=== PATIENT | female | born 1990 | race Caucasian/White ===

== ENCOUNTER 2016-08-03 07:15 | Inpatient (IN) | payer MEDICAID ==
[~2016-08-03] VITALS: Ht 154.9 cm; Wt 51.7 kg
[~2016-08-03 07:15] MED LIST: AMBI10TA PO; CLON1 PO; DICL50 PO; GABA300 PO; HYDR50 PO; PROM25TA5 PO; RANI150 PO
[2016-08-03 07:21] VITALS: BP 118/59; PULSE 93; RESP 20; TEMP 98.6; O2SAT 97
--- NOTE | 2016-08-03 07:58 | PD ---
HPI Chief Complaint: Altered Mental Status Time Seen by Provider: 07:36 Travel History International Travel<30 days: No Contact w/Intl Traveler<30days: No Traveled to known affect area: No History of Present Illness HPI The patient was seen and examined in the presence of the nurse. This patient is brought in by paramedics when someone called them reporting that she was having control lesions. She has history of substance abuse. She is not able to provide any history or review of systems. She is very somnolent. Paramedics gave her dose of Narcan which didn't help much. There is no accurate report of these convulsions. Paramedics did not see any seizure activity. Severity is moderate. No alleviating factors. Duration one day PFSH Past Medical History ?: Unknown Social History Alcohol Use: No Tobacco Use: Yes Substance Use: Yes Allergies-Medications (Allergen,Severity, Reaction): Coded Allergies: No Known Allergies (Unverified , 12/09/14) Reported Meds & Prescriptions Reported Meds & Active Scripts Active Ambien (Zolpidem Tartrate) 10 Mg Tab 10 Mg PO HS PRN Zantac 150 Mg Tab (Ranitidine HCl) 150 Mg Tab 150 Mg PO Q12HR Phenergan (Promethazine HCl) 25 Mg Tab 25 Mg PO Q6H Vistaril 50 Mg Cap (Hydroxyzine Pamoate) 50 Mg Cap 100 Mg PO HS Neurontin (Gabapentin) 300 Mg Cap 300 Mg PO TID Clonazepam 1 Mg Tab 1 Mg PO Q8HR Voltaren (Diclofenac Sodium) 50 Mg Tabec 50 Mg PO TID Review of Systems ROS Limitations: Clinical Condition, Intoxication, Altered Mental Status, Poor Historian Eyes: No: Visual changes Endocrine: No: Polydipsia Physical Exam Narrative GENERAL: Thin lethargic well-developed patient in no apparent distress. SKIN: Warm and dry. Several track sosa on the left arm HEAD: Atraumatic. Normocephalic. EYES: Pupils very large but equal and round and reactive. No scleral icterus. No injection or drainage. ENT: No nasal bleeding or discharge. Mucous membranes pink and moist. No tongue injury. Normal gag. NECK: Trachea midline. No JVD. CARDIOVASCULAR: Regular rate and rhythm. No murmur appreciated. RESPIRATORY: No accessory muscle use. Clear to auscultation. Breath sounds equal bilaterally. GASTROINTESTINAL: Abdomen soft, non-tender, nondistended. Hepatic and splenic margins not palpable. MUSCULOSKELETAL: No obvious deformities. No clubbing. No cyanosis. No edema. NEUROLOGICAL: Very drowsy and somnolent. Follow commands. Does not participate in the exam. Impossible to accurately gauge motor strength or sensation. No obvious cranial nerve deficits. Motor grossly within normal limits. Nonverbal PSYCHIATRIC: Impossible to test mood and affect; insight and judgment poor Data Data Last Documented VS Vital Signs Date Time Temp Pulse Resp B/P Pulse Ox O2 Delivery O2 Flow Rate FiO2 08/03/16 07:21 98.6 93 20 118/59 97 Orders Basic Metabolic Panel (Bmp) (08/03/16 07:50) Complete Blood Count With Diff (08/03/16 07:50) Ct Brain W/O Iv Contrast(Rout) (08/03/16 07:50) Iv Access Insert/Monitor (08/03/16 07:50) Cath For Specimen (08/03/16 07:50) Sodium Chloride 0.9% Flush (Ns Flush) (08/03/16 08:00) Drug Screen, Random Urine (08/03/16 07:50) Alcohol (Ethanol) (08/03/16 07:50) Salicylates (Aspirin) (08/03/16 07:50) Tylenol (Acetaminophen) (08/03/16 07:50) Sodium Chlor 0.9% 1000 Ml Inj (Ns 1000 M (08/03/16 08:00) [employer] / Telemetry BARBIE.Q8H (08/03/16 07:50) Ed Urine Pregnancytest Poc (08/03/16 07:58) Lorazepam Inj (Ativan Inj) (08/03/16 08:43) Beta Hcg (Quant/Titer) (08/03/16 08:55) Lorazepam Inj (Ativan Inj) (08/03/16 09:00) Admit Order (Ed Use Only) (08/03/16 09:53) Labs Laboratory Tests Test 08/03/16 08/03/16 08:00 08:55 White Blood Count 15.1 TH/MM3 Red Blood Count 4.59 MIL/MM3 Hemoglobin 11.2 GM/DL Hematocrit 36.0 % Mean Corpuscular Volume 78.4 FL Mean Corpuscular Hemoglobin 24.4 PG Mean Corpuscular Hemoglobin 31.1 % Concent Red Cell Distribution Width 15.4 % Platelet Count 346 TH/MM3 Mean Platelet Volume 7.4 FL Neutrophils (%) (Auto) 82.5 % Lymphocytes (%) (Auto) 10.8 % Monocytes (%) (Auto) 4.5 % Eosinophils (%) (Auto) 2.0 % Basophils (%) (Auto) 0.2 % Neutrophils # (Auto) 12.4 TH/MM3 Lymphocytes # (Auto) 1.6 TH/MM3 Monocytes # (Auto) 0.7 TH/MM3 Eosinophils # (Auto) 0.3 TH/MM3 Basophils # (Auto) 0.0 TH/MM3 CBC Comment AUTO DIFF Differential Total Cells 100 Counted Neutrophils % (Manual) 79 % Band Neutrophils % 6 % Lymphocytes % 9 % Monocytes % 5 % Neutrophils # (Manual) 13.0 TH/MM3 Myelocytes 1 % Differential Comment FINAL DIFF MANUAL Platelet Estimate NORMAL Platelet Morphology Comment NORMAL Ovalocytes 1+ Keratocytes OCC Sodium Level 144 MEQ/L Potassium Level 3.9 MEQ/L Chloride Level 110 MEQ/L Carbon Dioxide Level 21.6 MEQ/L Anion Gap 12 MEQ/L Blood Urea Nitrogen 8 MG/DL Creatinine 0.83 MG/DL Estimat Glomerular Filtration 82 ML/MIN Rate Random Glucose 138 MG/DL Calcium Level 8.5 MG/DL Human Chorionic Gonadotropin, LESS THAN 1 Quant MIU/ML Salicylates Level 9.6 MG/DL Acetaminophen Level LESS THAN 2.0 MCG/ML Ethyl Alcohol Level LESS THAN 3 MG/DL Urine Opiates Screen NEG Urine Barbiturates Screen NEG Urine Amphetamines Screen NEG Urine Benzodiazepines Screen NEG Urine Cocaine Screen NEG Urine Cannabinoids Screen NEG MDM Medical Decision Making Medical Screen Exam Complete: Yes Emergency Medical Condition: Yes Medical Record Reviewed: Yes Differential Diagnosis Drug ingestion, overdose, overmedication, new-onset seizure Narrative Course I have reviewed the patient's electronic medical record. Was seen here in 2013 for drug dependency IV placed CBC is normal Metabolic profile is normal Toxicology screen is negative Beta hCG is negative Tylenol is negative Aspirin is negative Alcohol level is negative Extended cardiac monitoring shows sinus tachycardia without ectopy Brain CT is normal About 30 minutes ago patient had a full-blown tonic-clonic seizure She did receive 1 dose of IV Ativan Currently postictal No postictal on top of her suspected medication or drug-induced altered mental status. I think she will be altered for some time. I discussed with medical residents and we will do 23 hour observation for altered mental status with multiple seizures. Diagnosis Primary Impression: Altered mental status, unspecified Additional Impression: Seizures Admitting Information Admitting Physician Requests: Observation Mick Contreras MD Aug 03, 2016 07:58
[2016-08-03] MEDS ORDERED: SODIUM CHLORIDE 0.9% FLUSH 10 ML FLUSH IVF PRN (08:00)
[2016-08-03] MEDS ORDERED: SODIUM CHLOR 0.9% 1000 ML INJ 1,000 ML IV ONE (08:00)
[2016-08-03 08:13] LABS: AUTOMATED NEUTROPHIL # 12.4 TH/MM3 (1.8-7.7); BASOPHIL % 0.2 % (0.0-2.0); EOSINOPHIL # 0.3 TH/MM3 (0-0.4); LYMPH % 10.8 % (9.0-44.0); LYMPHOCYTE # 1.6 TH/MM3 (1.0-4.8); MEAN CELL VOLUME 78.4 FL (80.0-100.0); MEAN CORPUSCULAR HEMOGLOBIN 24.4 PG (27.0-34.0); MEAN CORPUSCULAR HGB CONC 31.1 % (32.0-36.0); MONO % 4.5 % (0.0-8.0); NEUT % 82.5 % (16.0-70.0); PLATELET COUNT 346 TH/MM3 (150-450); RED BLOOD COUNT 4.59 MIL/MM3 (4.00-5.30); RED CELL DISTRIBUTION WIDTH 15.4 % (11.6-17.2); WHITE BLOOD COUNT 15.1 TH/MM3 (4.0-11.0)
[2016-08-03 08:18] LABS: HEMO FLAGS AUTO DIFF
[2016-08-03 08:38] LABS: ACETAMINOPHEN LESS THAN 2.0 MCG/ML (10.0-30.0); ANION GAP 12 MEQ/L (5-15); BICARBONATE 21.6 MEQ/L (21.0-32.0); BLOOD UREA NITROGEN 8 MG/DL (7-18); CHLORIDE 110 MEQ/L (98-107); GLOMERULAR FILTRATION RATE 82 ML/MIN (>89); SODIUM (NA) 144 MEQ/L (136-145)
[2016-08-03 08:39] LABS: POTASSIUM 3.9 MEQ/L (3.5-5.1)
[2016-08-03] MEDS ORDERED: LORazepam 2 MG/ML VIAL ONE (08:43)
--- NOTE | 2016-08-03 08:46 | RADRPT ---
EXAM DATE/TIME: 08/03/2016 08:14 [facility] COMPARISON: No previous studies available for comparison. INDICATIONS : Altered mental status. RADIATION DOSE: 34.32 CTDIvol (mGy) MEDICAL HISTORY : None SURGICAL HISTORY : None. ENCOUNTER: Initial ACUITY: 1 day PAIN SCALE: Non-responsive LOCATION: Bilateral cranial TECHNIQUE: Multiple contiguous axial images were obtained of the head. Using automated exposure control and adj ustment of the mA and/or kV according to patient size, radiation dose was kept as low as reasonably a chievable to obtain optimal diagnostic quality images. FINDINGS: CEREBRUM: The ventricles are normal for age. No evidence of midline shift, mass lesion, hemorrhage or acute in farction. No extra-axial fluid collections are seen. POSTERIOR FOSSA: The cerebellum and brainstem are intact. The 4th ventricle is midline. The cerebellopontine angle i s unremarkable. EXTRACRANIAL: The visualized portion of the orbits is intact. Mucosal thickening is seen opacifying multiple anteri or and middle ethmoid air cells bilaterally. Remaining paranasal sinuses and mastoid air cells are cl ear.SKULL: The calvaria is intact. No evidence of skull fracture. CONCLUSION: 1. No acute intracranial abnormality. 2. Bilateral ethmoid sinus disease. Jhon Eller Jr., MD on August 03, 2016 at 8:43 Board Certified Radiologist. This report was verified electronically.
[2016-08-03 08:48] LABS: BANDS 6 % (0-6); KERATOCYTES OCC (NORMAL); MYELOCYTES 1 % (0-0); OVALOCYTES 1+ (NORMAL); POLYS (SEG NEUTROPHILS) 79 % (16-70); WBC DIFF SAMPLE 100
[2016-08-03 08:49] LABS: PLATELET ESTIMATE SMEAR NORMAL (NORMAL); PLATELET MORPHOLOGY NORMAL (NORMAL); SCAN/DIFF FINAL DIFF MANUAL
[2016-08-03] MEDS ORDERED: LORazepam 2 MG/ML VIAL IV PUSH ONE (09:00)
[2016-08-03 09:24] LABS: BETA HCG QUANT LESS THAN 1 MIU/ML (0-5)
[2016-08-03 09:30] LABS: AMPHETAMINE, URINE NEG (NEG); BARBITURATES, URINE NEG (NEG); COCAINE, URINE NEG (NEG)
--- NOTE | 2016-08-03 10:01 | HHI.HP ---
[facility] Service Family Medicine Primary Care Physician Tiarra London MD Admission Diagnosis AMS and seizure Diagnoses: International Travel<30 Days: No Contact w/Intl Traveler<30days: No Known Affected Area: No History of Present Illness History limited as patient is very drowsy but arousable. * History gathered from ED physician and nursing in addition to patient 26-year-old female with a history significant for IV drug use. Presented here via EMS as there was concern for a seizure. Patient drove from home to her father's house to pick him up at which time her father thought she was having a seizure that was described as tremors. She then arrived via EMS and while in the ED, had a witnessed seizure by the nurse. Described as tonic-clonic. Patient denies any prior history of seizures or similar events such as this. Denies any drug or alcohol use prompting this event. Reports last use of IV Dilaudid was a few months ago. 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 Denies any pain or any concerns. Denies bowel or bladder incontinence, vomiting. She does not remember much about the events of the day besides waking up this morning. (Carolyn Nicolas MD R2) Review of Systems ROS Limitations: Clinical Condition (drowsy) Cardiovascular: DENIES: Chest pain Gastrointestinal: DENIES: Abdominal pain Genitourinary: DENIES: Urinary incontinence (Carolyn Nicolas MD R2) Past Family Social History Past Medical History Denies Past Surgical History Denies Reported Medications Suboxone and gabapentin (dose unknown) (Carolyn Nicolas MD R2) Allergies: Coded Allergies: No Known Allergies (Unverified , 12/09/14) Family History Unobtainable Social History Lives alone Denies alcohol, recent drug use, tobacco Admits to IV Dilaudid use a few months ago (Carolyn Nicolas MD R2) Physical Exam Vital Signs Vital Signs Date Time Temp Pulse Resp B/P Pulse Ox O2 Delivery O2 Flow Rate FiO2 08/03/16 07:21 98.6 93 20 118/59 97 Physical Exam GENERAL: This is a well-nourished, well-developed patient, in no apparent distress. Asleep in bed but arousable. SKIN: Healed track sosa on left antecubital fossa. HEAD: Atraumatic. Normocephalic. EYES: Pupils fully dilated in the dark and in the light. Extraocular motions intact. No scleral icterus. No injection or drainage. ENT: Nose without bleeding, purulent drainage. Lacerations on the tip and sides of tongue. Throat without erythema, tonsillar hypertrophy or exudate. Uvula midline. Airway patent. NECK: No JVD or lymphadenopathy. CARDIOVASCULAR: Regular rate and rhythm without gallops, or rubs. Grade 3/6 PRATEEK heard best at midclavicular line without radiation to axilla. RESPIRATORY: Clear to auscultation. Breath sounds equal bilaterally. No wheezes , rales, or rhonchi. GASTROINTESTINAL: Abdomen soft, non-tender, nondistended. No hepato-splenomegaly , or palpable masses. No guarding. MUSCULOSKELETAL: Extremities without clubbing, cyanosis, or edema.No calf tenderness. NEUROLOGICAL: Awake and alert. Motor grossly within normal limits.3+ patellar DTR. Normal speech. Laboratory Laboratory Tests Test 08/03/16 08/03/16 08:00 08:55 White Blood Count 15.1 Red Blood Count 4.59 Hemoglobin 11.2 Hematocrit 36.0 Mean Corpuscular Volume 78.4 Mean Corpuscular Hemoglobin 24.4 Mean Corpuscular Hemoglobin 31.1 Concent Red Cell Distribution Width 15.4 Platelet Count 346 Mean Platelet Volume 7.4 Neutrophils (%) (Auto) 82.5 Lymphocytes (%) (Auto) 10.8 Monocytes (%) (Auto) 4.5 Eosinophils (%) (Auto) 2.0 Basophils (%) (Auto) 0.2 Neutrophils # (Auto) 12.4 Lymphocytes # (Auto) 1.6 Monocytes # (Auto) 0.7 Eosinophils # (Auto) 0.3 Basophils # (Auto) 0.0 CBC Comment AUTO DIFF Differential Total Cells 100 Counted Neutrophils % (Manual) 79 Band Neutrophils % 6 Lymphocytes % 9 Monocytes % 5 Neutrophils # (Manual) 13.0 Myelocytes 1 Differential Comment FINAL DIFF MANUAL Platelet Estimate NORMAL Platelet Morphology Comment NORMAL Ovalocytes 1+ Keratocytes OCC Sodium Level 144 Potassium Level 3.9 Chloride Level 110 Carbon Dioxide Level 21.6 Anion Gap 12 Blood Urea Nitrogen 8 Creatinine 0.83 Estimat Glomerular Filtration 82 Rate Random Glucose 138 Calcium Level 8.5 Human Chorionic Gonadotropin, LESS THAN 1 Quant Salicylates Level 9.6 Acetaminophen Level LESS THAN 2.0 Ethyl Alcohol Level LESS THAN 3 Urine Opiates Screen NEG Urine Barbiturates Screen NEG Urine Amphetamines Screen NEG Urine Benzodiazepines Screen NEG Urine Cocaine Screen NEG Urine Cannabinoids Screen NEG (Carolyn Nicolas MD R2) Result Diagram: 08/03/16 0800 08/03/16 0800 Imaging Last Impressions Head CT 08/03/16 0750 Signed Impressions: Service Date/Time: Wednesday, August 03, 2016 08:14 - CONCLUSION: 1. No acute intracranial abnormality. 2. Bilateral ethmoid sinus disease. Jhon Eller Jr., MD (Carolyn Nicolas MD R2) Assessment and Plan Assessment and Plan 26-year-old female with history significant for IV drug use. Admitted for seizure and possible drug overdose. Code Status Full Discussed Condition With Dr. Nair and Dr. Rice (Carolyn Nicolas MD R2) Attending Attestation Patient seen and examined. Case reviewed and discussed with the resident team. Agree with plan of care as discussed with me and documented in the resident note. (Cristel Nair MD) Problem List: (1) Seizures Status: Acute Plan: No reported history of prior seizures. Witnessed by ED nursing as tonic- clonic seizure. Physical exam significant for fully dilated eyes and tongue lacerations. Per call to pharmacy, pt appears to have been prescribed lamictal , buspar, gabapentin, and suboxone; indicating that patient may actually have a history of seizures. Etiology likely due to drug use vs non compliance with seizure medications -Leukocytosis likely due to seizure but will also evaluate for possible endocarditis due to presence of murmur -BMP unremarkable -CK, LFTs ordered -UDS negative * OB/PSYCH UDS ordered -echo and EKG ordered -Seizure precautions and neuro checks -cardiac telemetry -Head CT negative -Blood cultures ordered Medications: * Ativan 2mg x2 for seizure (2) Opioid dependence Status: Chronic Plan: Prescribed Suboxone of unknown dosing. History of IV drug use but denies current use. -Called pharmacy who reported 1Film TID, did not specify dosing of film (3) Altered mental status, unspecified Status: Acute Plan: Please see detail above (4) Nutrition, metabolism, and development symptoms Status: Acute Plan: Diet: NPO until more awake and then advance as tolerated Fluids: NS at 60 until PO intake improves Electrolytes: unremarkable DVT PPX: SCDs due to recent seizure GI PPX: none indicated (Carolyn Nicolas MD R2) Carolyn Nicolas MD R2 Aug 03, 2016 10:01 Cristel Nair MD Aug 03, 2016 15:12
[2016-08-03] MEDS ORDERED: SODIUM CHLORIDE 0.9% FLUSH 10 ML FLUSH IV FLUSH PRN (10:30)
[2016-08-03] MEDS ORDERED: NALOXONE HCL 0.4 MG/ML AMP IV PRN (10:30)
--- NOTE | 2016-08-03 10:34 | HHI.FPPN ---
Subjective Remarks 26 yo with significant substance abuse history who has been on suboxone and gabapentin and in the process of starting a new job and near to getting visitation with her children. This a.m. she awoke and was off to poultry picker her dad from work. He noted her to be tremulous, and called [facility]. She was brought to ED where RN noted seizure with tongue biting. She admits to substance abuse and has scars/tracks in antecubital areas bilaterally. She takes suboxone and gabapentin but did not take today. No previous seizure activity per patient. Pt. seen and examined and discussed with Drs. Rice and Maria Isabel. Pt. gives minimal history due to extreme post-ictal somnolence. See H&P for this admission for additional historical details. Objective Vitals Vital Signs Date Time Temp Pulse Resp B/P Pulse Ox O2 Delivery O2 Flow Rate FiO2 08/03/16 07:21 98.6 93 20 118/59 97 Result Diagram: 08/03/16 0800 08/03/16 0800 Other Results Laboratory Tests Test 08/03/16 08:00 White Blood Count 15.1 TH/MM3 Hemoglobin 11.2 GM/DL Mean Corpuscular Volume 78.4 FL Mean Corpuscular Hemoglobin 24.4 PG Mean Corpuscular Hemoglobin 31.1 % Concent Neutrophils (%) (Auto) 82.5 % Neutrophils # (Auto) 12.4 TH/MM3 Neutrophils % (Manual) 79 % Neutrophils # (Manual) 13.0 TH/MM3 Myelocytes 1 % Ovalocytes 1+ Keratocytes OCC Chloride Level 110 MEQ/L Estimat Glomerular Filtration 82 ML/MIN Rate Random Glucose 138 MG/DL Acetaminophen Level LESS THAN 2.0 MCG/ML Imaging Last Impressions Head CT 08/03/16 0750 Signed Impressions: Service Date/Time: Wednesday, August 03, 2016 08:14 - CONCLUSION: 1. No acute intracranial abnormality. 2. Bilateral ethmoid sinus disease. Jhon Eller Jr., MD Objective Remarks O. CONSTITUTIONAL/GEN: normally nourished, post-ictal. EYES: conjunctiva normal, pupils markedly dilated, EOMI. ENT: Mouth and pharynx normal. MM dry. NECK: No mass LUNGS: clear A-P, respiratory effort is normal. CARDIOVASCULAR: RR with 4/6 systolic murmur heard across the precordium best in the mitral area. No significant edema. GI/ABD: soft without masses, without organomegaly. BS +. NEURO: Hyperreflexic SKIN: color normal, no rashes noted. HEME/LYMPH: no bruising, petechia or significant adenopathy MUSC: back is normal in appearance. Extremities are normal in appearance except for track sosa bilateral antecubital areas.. PSYCH/MENTAL STATUS: Somnolent, speech slurred and difficulty to discern. A/P Assessment and Plan New onset seizure in 26 yo with significant substance abuse history in the fairly recent past who has been on suboxone and gabapentin. Uncertain of recent intake. Attending Attestation Patient seen and examined. Case reviewed and discussed with the resident team. Agree with plan of care as discussed with me and documented in the resident note. Cristel Nair MD Aug 03, 2016 10:34
[2016-08-03 10:52] VITALS: O2SAT 97
[2016-08-03] MEDS ORDERED: ENALAPRILAT 1.25 MG/ML VIAL IV PRN (11:00)
[2016-08-03] MEDS ORDERED: BUSP10TA PO (11:13)
[2016-08-03] MEDS ORDERED: LAMO150 PO (11:13)
[2016-08-03] MEDS ORDERED: GABA100C4 PO (11:13)
[2016-08-03] MEDS ORDERED: SUBO2MIS SL (11:13)
[2016-08-03 11:35] LABS: ALT (GPT) 25 U/L (10-53); AST (GOT) 37 U/L (15-37)
[2016-08-03 11:36] LABS: ALKALINE PHOSPHATASE 52 U/L (45-117); CREATINE KINASE 145 U/L (26-192); INDIRECT BILIRUBIN 0.1 MG/DL (0.0-0.8); TOTAL BILIRUBIN ADULT 0.2 MG/DL (0.2-1.0)
[2016-08-03] MEDS: SODIUM CHLOR 0.9% 1000 ML INJ 1,000 ML IV SCH (12:45)
[2016-08-03 12:47] VITALS: BP 109/57; PULSE 81; RESP 20
[2016-08-03 16:25] VITALS: BP 114/57; PULSE 83; RESP 16; O2SAT 98
[2016-08-03 18:59] LABS: AMPHETAMINE, URINE NEG (NEG); BARBITURATES, URINE NEG (NEG); COCAINE, URINE NEG (NEG)
[2016-08-03] MEDS: SODIUM CHLORIDE 0.9% FLUSH 10 ML FLUSH IV FLUSH SCH (20:10)
[2016-08-03 21:04] VITALS: BP 103/56; PULSE 84; RESP 18; TEMP 98.6; O2SAT 96
--- NOTE | 2016-08-03 21:17 | PD.CONS ---
HPI Chief Complaint 26 yo swf P2 with recent IUD placement on suboxone maintenance in my office. She also gets buspar, lamictal and has been reducing gabapentin dosage as she moves aways from IV dilaudid use to prescribed medications. Last IVDA was several months ago. Recently compliant with medications and seen every 1-2 weeks given weekly scripts only. Was suspected of abusing gabapentin at one point. Recently procured apartment, job and was to be in court for reunification tomorrow. Was with mother last evening who reported nothing out of ordinary other than excitement for her progress. Had at least two witnessed seizures today--one in am with her father and one in our ED. Her mom describes at least two other episodes of seizure like activity in the past--one while in active addiction and one while on opioid maintenance. Our drug screen here does not screen for buprenorphine or gabepentin and is otherwise negative. Notes from earlier today describe dilated non responsive pupils on admission with aggitation and more interaction. currently is less aggitated but responds only to some questions and only with one word answer. Knows name and that she is in hospital. Cannot answer about possible other substance use or aura preceding initial siezure today. Date Seen: Aug 03, 2016 Time Seen: 21:08 Travel History International Travel<30 Days: No Contact w/Intl Traveler<30Days: No Known Affected Area: No History of Present Illness HPI 26 yo yo swf P2 with Mirena IUD recently placed on medications for opioid maintenance, anxiety, mood disorder. Co management with outside therapy at [facility] through [employer] and various services. REcently obtained apartment, job at [employer] and was weaning gabapentin. Recent drug screens were positive for buprenorphine and metabolites, gabapentin but no other opioids or cocaine etc. Apparently has not been happy with recent IUD, having pain and spotting and was wanting it removed. Was to see me this week in office. Para: 2 Allergies-Medications (Allergen,Severity, Reaction): Coded Allergies: No Known Allergies (Unverified , 12/09/14) Home Meds Reported Medications Buspirone 10 Mg Tab10 Mg PO TID Ref 0 08/03/16 Lamotrigine (Lamictal)150 Mg [id number] Mg PO DAILY #60 TAB Ref 0 08/03/16 Gabapentin 100 Mg [id number] Mg PO TID #90 CAP Ref 0 08/03/16 Buprenorphine-Naloxone Sublingual Film (Suboxone Sublingual Film)2-0.5 Mg Film1 Film SL Unique ID number required: 08/03/16 Discontinued Scripts Zolpidem Tartrate (Ambien)10 Mg Tab10 Mg PO HS PRN (SLEEP) #10 TAB Ref 0 Prov:Cristel Hollingsworth MD 12/13/14 Ranitidine HCl (Zantac 150 Mg Tab)150 Mg Zem187 Mg PO Q12HR #10 TAB Ref 0 Prov:Cristel Hollingsworth MD 12/13/14 Promethazine Hcl (Phenergan)25 Mg Tab25 Mg PO Q6H #20 TAB Ref 0 Prov:Cristel Hollingsworth MD 12/13/14 Hydroxyzine Pamoate (Vistaril)50 Mg [id number] Mg PO HS #7 CAP Ref 0 Prov:Cristel Hollingsworth MD 12/13/14 Gabapentin (Neurontin)300 Mg Vms428 Mg PO TID #15 CAP Ref 0 Prov:Cristel Hollingsworth MD 12/13/14 Clonazepam 1 Mg Tab1 Mg PO Q8HR #15 TAB Ref 0 Prov:Cristel Hollingsworth MD 12/13/14 Diclofenac Sod (Voltaren)50 Mg Tabec50 Mg PO TID #21 Prov:JASON DUENAS D.O. 04/26/13 Review of Systems General / Constitutional: Chills Musculoskeletal: Cramping Psychiatric: Anxiety, Depression, Mood Disorder, Substance Abuse Physical Exam Vital Signs Date Time Temp Pulse Resp B/P Pulse Ox O2 Delivery O2 Flow Rate FiO2 08/03/16 16:25 83 16 114/57 98 Room Air 08/03/16 12:47 81 20 109/57 08/03/16 10:52 97 21 08/03/16 07:21 98.6 93 20 118/59 97 Narrative GENERAL: thin obtunded patient with dry mouth SKIN: Warm and dry. HEAD: Normocephalic and atraumatic. EYES: No scleral icterus.Pupils are dilated and non reactive. ENT: sneezing and sniffling and vomitng. Mucous membranes pink. Airway patent. NECK: Supple, trachea midline. No JVD. CARDIOVASCULAR: Regular rate and rhythm without murmurs, gallops, or rubs. RESPIRATORY: Breath sounds equal bilaterally. No accessory muscle use. ABDOMEN/GI: Abdomen soft, non-tender, bowel sounds present, no rebound, no guarding EXTREMITIES: No cyanosis or edema. hyper reflexic BACK: Nontender without obvious deformity. No CVA tenderness. NEUROLOGICAL. not oriented to time. Only answers one word to a few questions. Not focusing on anything. intially writhing in bed Now vomiting Data Data Orders Basic Metabolic Panel (Bmp) (08/03/16 07:50) Complete Blood Count With Diff (08/03/16 07:50) Ct Brain W/O Iv Contrast(Rout) (08/03/16 07:50) Iv Access Insert/Monitor (08/03/16 07:50) Cath For Specimen (08/03/16 07:50) Sodium Chloride 0.9% Flush (Ns Flush) (08/03/16 08:00) Drug Screen, Random Urine (08/03/16 07:50) Alcohol (Ethanol) (08/03/16 07:50) Salicylates (Aspirin) (08/03/16 07:50) Tylenol (Acetaminophen) (08/03/16 07:50) Sodium Chlor 0.9% 1000 Ml Inj (Ns 1000 M (08/03/16 08:00) Sales Estimator / Telemetry BARBIE.Q8H (08/03/16 07:50) Ed Urine Pregnancytest Poc (08/03/16 07:58) Lorazepam Inj (Ativan Inj) (08/03/16 08:43) Beta Hcg (Quant/Titer) (08/03/16 08:55) Lorazepam Inj (Ativan Inj) (08/03/16 09:00) Admit Order (Ed Use Only) (08/03/16 09:53) Place In Observation (08/03/16 ) Code Status (08/03/16 10:22) Vital Signs (Adult) Q4H (08/03/16 10:22) Neuro Checks Q4H (08/03/16 10:22) Activity Bed Rest With Brp (08/03/16 10:22) Bedside Glucose BARBIE.AC&HS (08/03/16 10:22) Sales Estimator / Telemetry .CONTINUOUS (08/03/16 10:22) Intake + Output BARBIE.QSHIFT (08/03/16 10:22) Diet Npo (08/03/16 Lunch) Sodium Chlor 0.9% 1000 Ml Inj (Ns 1000 M (08/03/16 11:00) Sodium Chloride 0.9% Flush (Ns Flush) (08/03/16 10:30) Sodium Chloride 0.9% Flush (Ns Flush) (08/03/16 21:00) Ondansetron Inj (Zofran Inj) (08/03/16 10:30) Basic Metabolic Panel (Bmp) (08/04/16 06:00) Comprehensive Metabolic Panel (08/04/16 06:00) Electrocardiogram (08/03/16 10:22) Resp Oxygen Vicente C Titrat 1-4 L (08/03/16 ) Scd Bilateral/Knee High BARBIE.BID (08/03/16 10:22) Naloxone Inj (Narcan Inj) (08/03/16 10:30) Lorazepam Inj (Ativan Inj) (08/03/16 10:30) ^ Seizure Precautions (08/03/16 10:28) Echo 2d Comp W/Dopp(Routine) (08/03/16 ) Blood Culture (08/03/16 10:28) Ob/Psych Drug Screen, Urine (08/03/16 10:30) Creatine Kinase (Cpk) (08/03/16 10:49) Hepatic Functional Panel (08/03/16 10:49) Enalaprilat Inj (Vasotec Inj) (08/03/16 11:00) Ur Bath Salts (08/03/16 08:55) Ur Heroin (08/03/16 08:55) Ur K2 Spice (08/03/16 08:55) Ur Ecstasy (08/03/16 08:55) Ur Methadone (08/03/16 08:55) Phencyclidine Urine (Pcp) (08/03/16 08:55) Lamictal (Lamotrigine) (08/03/16 19:43) Consult Neuropsychology (08/03/16 ) Consult Psychiatry (08/03/16 ) Labs Laboratory Tests Test 08/03/16 08/03/16 08:00 08:55 White Blood Count 15.1 Red Blood Count 4.59 Hemoglobin 11.2 Hematocrit 36.0 Mean Corpuscular Volume 78.4 Mean Corpuscular Hemoglobin 24.4 Mean Corpuscular Hemoglobin 31.1 Concent Red Cell Distribution Width 15.4 Platelet Count 346 Mean Platelet Volume 7.4 Neutrophils (%) (Auto) 82.5 Lymphocytes (%) (Auto) 10.8 Monocytes (%) (Auto) 4.5 Eosinophils (%) (Auto) 2.0 Basophils (%) (Auto) 0.2 Neutrophils # (Auto) 12.4 Lymphocytes # (Auto) 1.6 Monocytes # (Auto) 0.7 Eosinophils # (Auto) 0.3 Basophils # (Auto) 0.0 CBC Comment AUTO DIFF Differential Total Cells 100 Counted Neutrophils % (Manual) 79 Band Neutrophils % 6 Lymphocytes % 9 Monocytes % 5 Neutrophils # (Manual) 13.0 Myelocytes 1 Differential Comment FINAL DIFF MANUAL Platelet Estimate NORMAL Platelet Morphology Comment NORMAL Ovalocytes 1+ Keratocytes OCC Sodium Level 144 Potassium Level 3.9 Chloride Level 110 Carbon Dioxide Level 21.6 Anion Gap 12 Blood Urea Nitrogen 8 Creatinine 0.83 Estimat Glomerular Filtration 82 Rate Random Glucose 138 Calcium Level 8.5 Total Bilirubin 0.2 Direct Bilirubin LESS THAN 0.1 Indirect Bilirubin 0.1 Aspartate Amino Transf 37 (AST/SGOT) Alanine Aminotransferase 25 (ALT/SGPT) Alkaline Phosphatase 52 Total Creatine Kinase 145 Total Protein 7.2 Albumin 3.7 Human Chorionic Gonadotropin, LESS THAN 1 Quant Salicylates Level 9.6 Acetaminophen Level LESS THAN 2.0 Ethyl Alcohol Level LESS THAN 3 Urine Opiates Screen NEG Urine Barbiturates Screen NEG Urine Amphetamines Screen NEG Urine Benzodiazepines Screen NEG Urine Cocaine Screen NEG Urine Cannabinoids Screen NEG Date/Time Procedure Status Source Growth 08/03/16 10:45 Aerobic Blood Culture Received Blood Peripheral Pending 08/03/16 10:45 Anaerobic Blood Culture Received Blood Peripheral Pending [facility] Medical Record Reviewed: Yes Interpretation(s) seizure disorder possibly due to mismanagment of her prescribed drugs, additional drugs or perhaps independent of her regimen. Her recent visit and behavior with her parents would suggest she would not have been abusing drugs or diverting drugs at this time, but remains possibility. Hospital drug screen not helpful. She is withdrawing now from suboxone but not capable of taking anything by mouth She is at risk for aspiration Need help from psych and neuropsych at this time. Consults ordered need protocol for her opioid withdrawal Admitting diagnosis: AMS and seizure Tiarra London MD Aug 03, 2016 21:17
[2016-08-03] MEDS: ONDANSETRON HCL 4 MG/2 ML VIAL IVP PRN (21:18)
[2016-08-03] MEDS ORDERED: BUPRENORPHINE IV PRN (21:30)
[2016-08-03] MEDS ORDERED: SODIUM CHLORIDE 0.9% IV PRN (21:30)
[2016-08-03 23:25] VITALS: BP 118/66; PULSE 98; RESP 14; O2SAT 98
[2016-08-04] VITALS (14 sets, daily range): BP systolic 89–124; BP diastolic 55–72; PULSE 65–81; RESP 16–25; TEMP 98–99.6; O2SAT 95–100
[2016-08-04] MEDS: SODIUM CHLOR 0.9% 1000 ML INJ 1,000 ML IV SCH ×2 (03:40→19:55)
[2016-08-04] MEDS: ONDANSETRON HCL 4 MG/2 ML VIAL IVP PRN (05:01)
--- NOTE | 2016-08-04 07:58 | PD.CONS ---
HPI Chief Complaint witnessed gran mal seizures x 2 opioid dependence Date Seen: Aug 04, 2016 Time Seen: 07:44 Travel History International Travel<30 Days: No Contact w/Intl Traveler<30Days: No Known Affected Area: No History of Present Illness HPI 26 yo yo swf P2 with Mirena IUD recently placed on medications for opioid maintenance, anxiety, mood disorder. Co management with outside therapy at [facility] through [employer] and various services. Recently obtained apartment, job at [employer] and was weaning gabapentin. Recent drug screens were positive for buprenorphine and metabolites, gabapentin but no other opioids or cocaine etc. Apparently has not been happy with recent IUD, having pain and spotting and was wanting it removed. Was to see me this week in office. While she was not able to help us with history last evening she is a bit more alert this am. Adamently denies any deviation from medications as prescribed. No illicit additions. Para: 2 Allergies-Medications (Allergen,Severity, Reaction): Coded Allergies: No Known Allergies (Unverified , 12/09/14) Home Meds Reported Medications Buspirone 10 Mg Tab10 Mg PO TID Ref 0 08/03/16 Lamotrigine (Lamictal)150 Mg Gyl083 Mg PO DAILY #60 TAB Ref 0 08/03/16 Gabapentin 100 Mg Krx799 Mg PO TID #90 CAP Ref 0 08/03/16 Buprenorphine-Naloxone Sublingual Film (Suboxone Sublingual Film)2-0.5 Mg Film1 Film SL Unique ID number required: 08/03/16 Discontinued Scripts Zolpidem Tartrate (Ambien)10 Mg Tab10 Mg PO HS PRN (SLEEP) #10 TAB Ref 0 Prov:Cristel Hollingsworth MD 12/13/14 Ranitidine HCl (Zantac 150 Mg Tab)150 Mg Mjg440 Mg PO Q12HR #10 TAB Ref 0 Prov:Cristel Hollingsworth MD 12/13/14 Promethazine Hcl (Phenergan)25 Mg Tab25 Mg PO Q6H #20 TAB Ref 0 Prov:Cristel Hollingsworth MD 12/13/14 Hydroxyzine Pamoate (Vistaril)50 Mg Kuq591 Mg PO HS #7 CAP Ref 0 Prov:Cristel Hollingsworth MD 12/13/14 Gabapentin (Neurontin)300 Mg Ctk140 Mg PO TID #15 CAP Ref 0 Prov:Cristel Hollingsworth MD 12/13/14 Clonazepam 1 Mg Tab1 Mg PO Q8HR #15 TAB Ref 0 Prov:Cristel Hollingsworth MD 12/13/14 Diclofenac Sod (Voltaren)50 Mg Tabec50 Mg PO TID #21 Prov:JASON DUENAS D.O. 04/26/13 Physical Exam Vital Signs Date Time Temp Pulse Resp B/P Pulse Ox O2 Delivery O2 Flow Rate FiO2 08/04/16 04:42 98.0 65 18 119/71 95 08/04/16 03:32 79 08/04/16 00:36 98 08/03/16 23:25 98 14 118/66 98 08/03/16 21:04 98.6 84 18 103/56 96 08/03/16 16:25 83 16 114/57 98 Room Air 08/03/16 12:47 81 20 109/57 08/03/16 10:52 97 21 Narrative GENERAL: Well-nourished, well-developed patient. SKIN: no skin turgor HEAD: Normocephalic and atraumatic. EYES: No scleral icterus. Less dilated and now reactive to light ENT: No nasal drainage noted. Mucous membranes pink. Airway patent. NECK: Supple, trachea midline. No JVD. CARDIOVASCULAR: Regular rate and rhythm NEW ONSET 2-3/6 HOLOSYSTOLIC MURMUR LEFT STERNAL BORDER --QUESTION MITRAL VS AORTIC. RESPIRATORY: Breath sounds equal bilaterally. No accessory muscle use. ABDOMEN/GI: Abdomen soft, non-tender, bowel sounds present, no rebound, no guarding Gravid to [-] weeks size Fundal Height: [-] GENITOURINARY: EXTREMITIES: No cyanosis or edema. BACK: Nontender without obvious deformity. No CVA tenderness. NEUROLOGICAL: Still obtunded. hyper reflexic, and jittery Data Data Orders Basic Metabolic Panel (Bmp) (08/03/16 07:50) Complete Blood Count With Diff (08/03/16 07:50) Ct Brain W/O Iv Contrast(Rout) (08/03/16 07:50) Iv Access Insert/Monitor (08/03/16 07:50) Cath For Specimen (08/03/16 07:50) Sodium Chloride 0.9% Flush (Ns Flush) (08/03/16 08:00) Drug Screen, Random Urine (08/03/16 07:50) Alcohol (Ethanol) (08/03/16 07:50) Salicylates (Aspirin) (08/03/16 07:50) Tylenol (Acetaminophen) (08/03/16 07:50) Sodium Chlor 0.9% 1000 Ml Inj (Ns 1000 M (08/03/16 08:00) Fur Mixer / Telemetry BARBIE.Q8H (08/03/16 07:50) Ed Urine Pregnancytest Poc (08/03/16 07:58) Lorazepam Inj (Ativan Inj) (08/03/16 08:43) Beta Hcg (Quant/Titer) (08/03/16 08:55) Lorazepam Inj (Ativan Inj) (08/03/16 09:00) Admit Order (Ed Use Only) (08/03/16 09:53) Place In Observation (08/03/16 ) Code Status (08/03/16 10:22) Vital Signs (Adult) Q4H (08/03/16 10:22) Neuro Checks Q4H (08/03/16 10:22) Activity Bed Rest With Brp (08/03/16 10:22) Bedside Glucose BARBIE.AC&HS (08/03/16 10:22) Fur Mixer / Telemetry .CONTINUOUS (08/03/16 10:22) Intake + Output BARBIE.QSHIFT (08/03/16 10:22) Diet Npo (08/03/16 Lunch) Sodium Chlor 0.9% 1000 Ml Inj (Ns 1000 M (08/03/16 11:00) Sodium Chloride 0.9% Flush (Ns Flush) (08/03/16 10:30) Sodium Chloride 0.9% Flush (Ns Flush) (08/03/16 21:00) Ondansetron Inj (Zofran Inj) (08/03/16 10:30) Basic Metabolic Panel (Bmp) (08/04/16 06:00) Comprehensive Metabolic Panel (08/04/16 06:00) Electrocardiogram (08/03/16 10:22) Resp Oxygen Vicente C Titrat 1-4 L (08/03/16 ) Scd Bilateral/Knee High BARBIE.BID (08/03/16 10:22) Naloxone Inj (Narcan Inj) (08/03/16 10:30) Lorazepam Inj (Ativan Inj) (08/03/16 10:30) ^ Seizure Precautions (08/03/16 10:28) Echo 2d Comp W/Dopp(Routine) (08/03/16 ) Blood Culture (08/03/16 10:28) Ob/Psych Drug Screen, Urine (08/03/16 10:30) Creatine Kinase (Cpk) (08/03/16 10:49) Hepatic Functional Panel (08/03/16 10:49) Enalaprilat Inj (Vasotec Inj) (08/03/16 11:00) Ur Bath Salts (08/03/16 08:55) Ur Heroin (08/03/16 08:55) Ur K2 Spice (08/03/16 08:55) Ur Ecstasy (08/03/16 08:55) Ur Methadone (08/03/16 08:55) Phencyclidine Urine (Pcp) (08/03/16 08:55) Lamictal (Lamotrigine) (08/03/16 19:43) Consult Neuropsychology (08/03/16 ) Consult Psychiatry (08/03/16 ) Buprenorphine Inj (Buprenex Inj) (08/03/16 21:30) (Hub Use Only)In Phy Cons/Ref (08/03/16 ) Complete Blood Count With Diff (08/04/16 06:00) Diaper, Adult Medium Attend Ea (08/04/16 00:34) Sleeve, Knee Sequential Geronimo Pr (08/04/16 01:13) (Hub Use Only)In Phy Cons/Ref (08/04/16 ) Labs Laboratory Tests Test 08/03/16 08/03/16 08:00 08:55 White Blood Count 15.1 Red Blood Count 4.59 Hemoglobin 11.2 Hematocrit 36.0 Mean Corpuscular Volume 78.4 Mean Corpuscular Hemoglobin 24.4 Mean Corpuscular Hemoglobin 31.1 Concent Red Cell Distribution Width 15.4 Platelet Count 346 Mean Platelet Volume 7.4 Neutrophils (%) (Auto) 82.5 Lymphocytes (%) (Auto) 10.8 Monocytes (%) (Auto) 4.5 Eosinophils (%) (Auto) 2.0 Basophils (%) (Auto) 0.2 Neutrophils # (Auto) 12.4 Lymphocytes # (Auto) 1.6 Monocytes # (Auto) 0.7 Eosinophils # (Auto) 0.3 Basophils # (Auto) 0.0 CBC Comment AUTO DIFF Differential Total Cells 100 Counted Neutrophils % (Manual) 79 Band Neutrophils % 6 Lymphocytes % 9 Monocytes % 5 Neutrophils # (Manual) 13.0 Myelocytes 1 Differential Comment FINAL DIFF MANUAL Platelet Estimate NORMAL Platelet Morphology Comment NORMAL Ovalocytes 1+ Keratocytes OCC Sodium Level 144 Potassium Level 3.9 Chloride Level 110 Carbon Dioxide Level 21.6 Anion Gap 12 Blood Urea Nitrogen 8 Creatinine 0.83 Estimat Glomerular Filtration 82 Rate Random Glucose 138 Calcium Level 8.5 Total Bilirubin 0.2 Direct Bilirubin LESS THAN 0.1 Indirect Bilirubin 0.1 Aspartate Amino Transf 37 (AST/SGOT) Alanine Aminotransferase 25 (ALT/SGPT) Alkaline Phosphatase 52 Total Creatine Kinase 145 Total Protein 7.2 Albumin 3.7 Human Chorionic Gonadotropin, LESS THAN 1 Quant Salicylates Level 9.6 Acetaminophen Level LESS THAN 2.0 Ethyl Alcohol Level LESS THAN 3 Urine Opiates Screen NEG Urine Barbiturates Screen NEG Urine Amphetamines Screen NEG Urine Benzodiazepines Screen NEG Urine Cocaine Screen NEG Urine Cannabinoids Screen NEG Date/Time Procedure Status Source Growth 08/03/16 10:45 Aerobic Blood Culture Received Blood Peripheral Pending 08/03/16 10:45 Anaerobic Blood Culture Received Blood Peripheral Pending MDM Interpretation(s) discussing with Dr. Beltran and reviewing case need CPK need EEG new murmur--needs cardio consult and ARNIE ddx psychogenic or psuedo seizures? pharmacy does not think serotonin syndrome Admitting diagnosis: AMS and seizure Tiarra London MD Aug 04, 2016 07:58
[2016-08-04 08:38] LABS: AUTOMATED NEUTROPHIL # 8.2 TH/MM3 (1.8-7.7); BASOPHIL % 0.2 % (0.0-2.0); EOSINOPHIL % 0.1 % (0.0-4.0); HEMATOCRIT 29.3 % (35.0-46.0); HEMO FLAGS DIFF FINAL; LYMPH % 10.1 % (9.0-44.0); MEAN CORPUSCULAR HEMOGLOBIN 25.4 PG (27.0-34.0); MONO % 2.6 % (0.0-8.0); PLATELET COUNT 309 TH/MM3 (150-450); RED CELL DISTRIBUTION WIDTH 15.6 % (11.6-17.2); WHITE BLOOD COUNT 9.4 TH/MM3 (4.0-11.0)
[2016-08-04 08:43] LABS: ALKALINE PHOSPHATASE 45 U/L (45-117); ALT (GPT) 19 U/L (10-53); ANION GAP 12 MEQ/L (5-15); AST (GOT) 20 U/L (15-37); BICARBONATE 22.4 MEQ/L (21.0-32.0); BLOOD UREA NITROGEN 14 MG/DL (7-18); CHLORIDE 111 MEQ/L (98-107); GLOMERULAR FILTRATION RATE 119 ML/MIN (>89); POTASSIUM 3.6 MEQ/L (3.5-5.1); SODIUM (NA) 145 MEQ/L (136-145); TOTAL BILIRUBIN ADULT 0.2 MG/DL (0.2-1.0)
[2016-08-04] MEDS: SODIUM CHLORIDE 0.9% FLUSH 10 ML FLUSH IV FLUSH SCH ×2 (08:58→20:47)
[2016-08-04] MEDS: LACTATED RINGER'S 1000 ML INJ 1,000 ML IV SCH ×3 (08:58→20:53)
[2016-08-04 11:24] LABS: CKMB 2.2 NG/ML (0.5-3.6)
--- NOTE | 2016-08-04 12:11 | HHI.FPPN ---
Subjective Remarks Feels a bit better, does deny use of any medications not prescribed to her. Knows where she is and what her medications are for. Objective Vitals Vital Signs Date Time Temp Pulse Resp B/P Pulse Ox O2 Delivery O2 Flow Rate FiO2 08/04/16 08:05 98.5 70 20 124/72 98 08/04/16 08:00 78 08/04/16 04:42 98.0 65 18 119/71 95 08/04/16 03:32 79 08/04/16 00:36 98 08/03/16 23:25 98 14 118/66 98 08/03/16 21:04 98.6 84 18 103/56 96 08/03/16 16:25 83 16 114/57 98 Room Air 08/03/16 12:47 81 20 109/57 I/O 08/03/16 08/03/16 08/03/16 08/04/16 08/04/16 08/04/16 07:00 15:00 23:00 07:00 15:00 23:00 Intake Total 175 ml Balance 175 ml Intake Oral 0 ml IV Total 175 ml # Voids 1 Result Diagram: 08/04/16 0650 08/04/16 0650 Objective Remarks O. CONSTITUTIONAL/GEN: normally nourished, still with slow, indistinct speech. EYES: conjunctiva normal, pupils less dilated, EOMI. ENT: Mouth and pharynx normal. MM dry. NECK: No mass LUNGS: clear A-P, respiratory effort is normal. CARDIOVASCULAR: RR with 4/6 systolic murmur heard across the precordium best in the mitral area. No significant edema. GI/ABD: soft without masses, without organomegaly. BS +. SKIN: color normal, no rashes noted. HEME/LYMPH: no bruising, petechia or significant adenopathy MUSC: back is normal in appearance. Extremities are normal in appearance except for track sosa bilateral antecubital areas. PSYCH/MENTAL STATUS: Flat affect. Speech soft and difficult to hear. A/P Assessment and Plan 26-year-old female with history significant for IV drug use in the past. Admitted for seizure and possible medication mismanagement or overdose. Attending Attestation I have spoken with Dr London this a.m. and transferred the care of this patient to her as of this a.m. Patient is well-known to Dr. London who has been managing her chronic health issues and medications as an outpatient. Family is aware that Dr. London is in charge. We have signed off this case and transferred care. Problem List: (1) Seizures Status: Acute Plan: No reported history of prior seizures. Witnessed by ED nursing as tonic- clonic seizure. Physical exam significant for fully dilated eyes and tongue lacerations. Per call to pharmacy, pt appears to have been prescribed lamictal , buspar, gabapentin, and suboxone; indicating that patient may actually have a history of seizures. Etiology likely due to drug use vs non compliance with seizure medications -Leukocytosis likely due to seizure but will also evaluate for possible endocarditis due to presence of murmur -BMP unremarkable -CK, LFTs ordered -UDS negative * OB/PSYCH UDS ordered -echo and EKG ordered -Seizure precautions and neuro checks -cardiac telemetry -Head CT negative -Blood cultures ordered Medications: * Ativan 2mg x2 for seizure (2) Opioid dependence Status: Chronic Plan: Prescribed Suboxone of unknown dosing. History of IV drug use but denies current use. -Called pharmacy who reported 1Film TID, did not specify dosing of film (3) Altered mental status, unspecified Status: Acute Plan: Please see detail above (4) Nutrition, metabolism, and development symptoms Status: Acute Plan: Diet: NPO until more awake and then advance as tolerated Fluids: NS at 60 until PO intake improves Electrolytes: unremarkable DVT PPX: SCDs due to recent seizure GI PPX: none indicated Cristel Nair MD Aug 04, 2016 12:11
[2016-08-04] MEDS: LORazepam 2 MG/ML VIAL IV PRN ×2 (12:39→13:03)
[2016-08-04] MEDS ORDERED: FOSPHENYTOIN INJ 1,000 MGPE in SODIUM CHLORIDE 0.9% INJ 50 ML IV ONE (13:00)
--- NOTE | 2016-08-04 13:33 | MB ---
cc: MARLON SALGADO M.D. DATE OF CONSULTATION 08/04/2016 DATE OF 1990 AGE [age] years old REASON FOR CONSULTATION Generalized seizures. HISTORY OF PRESENT ILLNESS The patient is a 26-year-old woman. History is taken from the chart who is a patient of Dr. London who had a recent IUD placed, on Suboxone maintenance, getting BuSpar, lamotrigine and apparently the patient was reducing her Gabapentin dose, trying to come off of IV Dilaudid. Her last IV drug abuse was several months ago, compliant with medications and was being seen every couple of weeks for prescriptions. There was a question of abusing Gabapentin at one point. Apparently she was with her mother last night or the night before last, reported nothing out of the ordinary, was feeling fine per chart. Apparently on the day of admission, 08/03, she had two witnessed seizures, one in the morning with her father and one here in the emergency department. Apparently she had something similar in the past with active addiction and one while she was on opiate maintenance. I am asked to consult on this patient for generalized tonic-clonic seizures and I did order an EEG prior to seeing the patient. EEG called me and I did see the EEG and she had generalized seizure activity on her EEG that subsided somewhat with Ativan. The patient was not shaking so it was not visible without the EEG. I took the liberty of ordering of 1 gram or fosphenytoin equivalent of Cerebyx STAT and would like her transferred to the ICU under the care of the rn bsn in the event that she needs to be intubated and will probably need further Ativan doses. Likely she will need to have her airway protected and placed on either Diprivan or Versed. MEDICATIONS Her reported medicines at home of are - 1. Buspirone 10 mg t.i.d. 2. Lamotrigine 150 mg daily. 3. Gabapentin 100 mg t.i.d. 4. Suboxone sublingual film 0.5 mg. OTHER HISTORY 1. Anxiety, depression. 2. Mood disorder. 3. Substance abuse. SOCIAL HISTORY Apparently lives I believe with her parents at this point, trying to get an apartment. There is history of drug abuse. ALLERGIES TO MEDICATIONS Per chart, none. PHYSICAL EXAMINATION VITALS: Temperature is 98.5, pulse 70, respiratory rate 20, blood pressure 124/72. GENERAL: She is lying in bed, not shaking. HEENT: Her pupils are reactive. There is no gaze deviation at this time. NEUROLOGIC: There is normal tone. She briefly opens her eyes with sternal rub, does not follow any commands. Withdraws to pain. Otherwise limited exam. LABORATORY DATA Yesterday's white count was 15.1; today it is 9.4, hemoglobin 9.7, hematocrit 77. Her platelets are 309,000. Chemistries are reviewed. Her CK today has elevated slightly to 217. Prolactin is pending. EKG Less than 1. Liver function studies were unremarkable. Glucose 124. Toxicology was really unremarkable. Salicylate level was 9.6. Pending lamotrigine level. Microbiology - No growth thus far. CT HEAD Without any acute intracranial abnormality. IMPRESSION A 26-year-old woman with what looks to be in subclinical status. RECOMMENDATIONS 1. I did order Cerebyx load, 1 gram fosphenytoin equivalent. I would like to maintain her on a 100 PE three times a day with a level in the morning. Keep her level near 15. 2. I will also repeat an EEG and defer necessity of intubation to the rn bsn, placing her on either likely Diprivan versus another medication while intubated. I will go ahead and order the Dilantin level and the EEG and the Cerebyx maintenance dose at this point in time. 3. Continue current care as outlined. Thank you. MD ISABELLE Ellison/EMILY /12:51 PM /1:19 PM
--- NOTE | 2016-08-04 13:50 | HHI.PR ---
DIRECTOR PROSPECT Note Note Called at 12:30 with Pamella having multiple and sustained seizure activity treated with ativan so far. On arrival Dr. Luz present and ordering transfer to SICU Dr. Eller will be taking over as attending. Will discuss with him. Tiarra London MD Aug 04, 2016 13:50
[2016-08-04] MEDS ORDERED: FOSPHENYTOIN SODIUM 100 MG PE/2 ML VIAL IM SCH (14:00)
--- NOTE | 2016-08-04 14:12 | PD.CONS ---
[facility] Service Critical Care Medicine Consult Requested By Dr. Mckinney Reason for Consult Subclinical status epilepticus Primary Care Physician Tiarra London MD History of Present Illness Patient is a 26 year-old female with past medical history significant for IV drug use with Dilaudid, mood disorder, Suboxone maintenance, recent IUD placement who was brought in the emergency department on 08/03/16 for two witnessed seizures, previously had similar episodes while in active addiction. Apparently admitted IV Dilaudid use was a few months ago. Neurology was consulted and EEG was performed generalized seizure activity on her EEG that subsided somewhat with Ativan, but there was no clinical seizure. Patient was given Ativan 2 mg IV 2 and was loaded with IV Cerebyx 1 g followed by 100 mg IV every 8 hours. Patient had prolonged subclinical seizures/status and for this reason and with possibility of intubation critical care was consulted. I evaluated the patient in the H pod, she is lethargic but wakes her up to sternal rub appears to be protecting airway. On EEG sz seems to have subsided. Patient also has a pansystolic murmur at the mitral area. Blood cultures have been sent and 2-D echo done report is not available yet. I have given 1 dose of vancomycin IV and will place on cefepime 2 g IV every 8 hours. D/W Dr. Maria Review of Systems ROS Limitations: Altered Mental Status Past Family Social History Allergies: Coded Allergies: No Known Allergies (Unverified , 12/09/14) Past Medical History Anxiety, depression. Mood disorder Substance abuse/ IVDU with Dilaudid Past Surgical History No major surgery Reported Medications Buspirone 10 mg t.i.d. Lamotrigine 150 mg daily. Gabapentin 100 mg t.i.d. Suboxone sublingual film 0.5 mg. Active Ordered Medications Reviewed Family History None Social History History of IVDU with Dilaudid Physical Exam Vital Signs Vital Signs Date Time Temp Pulse Resp B/P Pulse Ox O2 Delivery O2 Flow Rate FiO2 08/04/16 14:06 99.6 79 18 91/55 100 08/04/16 08:05 98.5 70 20 124/72 98 08/04/16 08:00 78 08/04/16 04:42 98.0 65 18 119/71 95 08/04/16 03:32 79 08/04/16 00:36 98 08/03/16 23:25 98 14 118/66 98 08/03/16 21:04 98.6 84 18 103/56 96 08/03/16 16:25 83 16 114/57 98 Room Air Physical Exam GEN: Well nourished 26 year old, somnolent, lethargic EYES: conjunctiva normal, pupils equal reactive ENT: Oral cavity moist, airway patent NECK: No JVD LUNGS: Chest clear bilaterally, no wheezes or crackles CARDIOVASCULAR: RR with 3/6 systolic murmur heard best the apex. GI: Soft non tender, without organomegaly. . MSK: Track sosa bilateral antecubital areas. NEURO: Somnolent and lethargic and encephalopathic. Opens eyes to sternal rub is extremities but do not follow commands. Nonfocal exam Laboratory Laboratory Tests Test 08/04/16 08/04/16 06:50 10:03 White Blood Count 9.4 Red Blood Count 3.80 Hemoglobin 9.7 Hematocrit 29.3 Mean Corpuscular Volume 77.0 Mean Corpuscular Hemoglobin 25.4 Mean Corpuscular Hemoglobin 33.0 Concent Red Cell Distribution Width 15.6 Platelet Count 309 Mean Platelet Volume 7.3 Neutrophils (%) (Auto) 87.0 Lymphocytes (%) (Auto) 10.1 Monocytes (%) (Auto) 2.6 Eosinophils (%) (Auto) 0.1 Basophils (%) (Auto) 0.2 Neutrophils # (Auto) 8.2 Lymphocytes # (Auto) 1.0 Monocytes # (Auto) 0.2 Eosinophils # (Auto) 0.0 Basophils # (Auto) 0.0 CBC Comment DIFF FINAL Differential Comment Sodium Level 145 Potassium Level 3.6 Chloride Level 111 Carbon Dioxide Level 22.4 Anion Gap 12 Blood Urea Nitrogen 14 Creatinine 0.60 Estimat Glomerular Filtration 119 Rate Random Glucose 124 Calcium Level 8.5 Total Bilirubin 0.2 Aspartate Amino Transf 20 (AST/SGOT) Alanine Aminotransferase 19 (ALT/SGPT) Alkaline Phosphatase 45 Total Protein 6.4 Albumin 3.4 Total Creatine Kinase 217 Creatine Kinase MB 2.2 Creatine Kinase MB % 1.0 Date/Time Procedure Status Source Growth 08/03/16 10:45 Aerobic Blood Culture - Preliminary Resulted Blood Peripheral NO GROWTH IN 1 DAY 08/03/16 10:45 Anaerobic Blood Culture - Preliminary Resulted Blood Peripheral NO GROWTH IN 1 DAY Result Diagram: 08/04/16 0650 08/04/[address] head normal Septic Shock Reassessment Heart: Regular rate and rhythm, Murmur Lungs: Clear Skin: Warm Peripheral Pulses: Weak Right Radial Weak Left Radial Assessment and Plan Assessment and Plan ASSESSMENT: Subclinical status epilepticus Acute encephalopathy New murmur, r/o Infective endocarditis IVDU PLAN: NEURO: Subclinical status epilepticus Acute encephalopathy IV drug use -EEG shows subclinical seizure activity. Continue EEG monitoring -Received 4 mg IV Ativan. Loaded with IV Cerebyx 1 g and scheduled 100 mg IV every 8 hours -Neurology Dr. Maria -MRI of the brain with and without contrast RESP: -Nasal cannula oxygen. DuoNeb every 6 hours when necessary -Aggressive pulmonary toilet CV: New murmur Possible infective endocarditis -Normal saline IV fluids 2L bolus and 125 ml per hour -Await 2d echo report, cardiology consult if needed GI: -NPO. IV Protonix : -Monitor renal function closely. Campa catheter. ID: -IV vancomycin 1GM IVx1 . Start cefepime 2 g IV every 8 hours to cover for Pseudomonas -Blood cultures have been sent, follow up HEME: -Monitor CBC, CMP, coags ENDO: -Electrolyte replacement protocol PROPH: -Bilateral lower extremity SCDs. Avoid chemical prophylaxis until MRI is done. Protonix for GI prophylaxis LINES: -Utilize peripheral IVs, central line if needed CC time 55 min Code Status Full Mickey Liu MD Aug 04, 2016 14:12
[2016-08-04] MEDS ORDERED: MAGNESIUM OXIDE 400 MG TAB PO PRN (14:30)
[2016-08-04] MEDS ORDERED: POTASSIUM PHOSPHATE MONOBASIC 500 MG TAB PO PRN (14:30)
[2016-08-04] MEDS ORDERED: RESP: ALBUTEROL 2.5 MG/IPRATROPIUM 0.5 MG NEB (PRN) NEB (14:30)
[2016-08-04] MEDS ORDERED: MAGNESIUM SULFATE INJ 2 GM in SODIUM CHLORIDE 0.9% INJ 96 ML IV PRN (14:30)
[2016-08-04] MEDS ORDERED: POTASSIUM PHOSPHATE INJ 30 MMOL in SODIUM CHLOR 0.9% 250 ML INJ 250 ML IV PRN (14:30)
[2016-08-04] MEDS ORDERED: POTASSIUM PHOSPHATE MONOBASIC 500 MG TAB PO/TUBE PRN (14:30)
[2016-08-04] MEDS ORDERED: MAGNESIUM SULFATE INJ 4 GM in SODIUM CHLORIDE 0.9% INJ 92 ML IV PRN (14:30)
[2016-08-04] MEDS ORDERED: POTASSIUM CHLOR 20 MEQ PREMIX 100 ML IV PRN ×2 (14:30)
[2016-08-04] MEDS ORDERED: POTASSIUM CHLOR 40 MEQ PREMIX 100 ML IV PRN ×2 (14:30)
[2016-08-04] MEDS ORDERED: SODIUM PHOSPHATE INJ 30 MMOL in SODIUM CHLOR 0.9% 250 ML INJ 240 ML IV PRN (14:30)
[2016-08-04] MEDS ORDERED: VANCOMYCIN INJ 1,000 MG in SODIUM CHLOR 0.9% 250 ML INJ 250 ML IV SCH (14:45)
[2016-08-04 14:51] LABS: MAGNESIUM 2.1 MG/DL (1.5-2.5); POTASSIUM 3.8 MEQ/L (3.5-5.1)
--- NOTE | 2016-08-04 15:10 | PD.CONS ---
Provisional Diagnosis Admission Date Aug 03, 2016 at 09:56 [place] I. Delirium due to underlying medical condition, history of bipolar disorder, opiate use disorder [place] II. Deferred History of Present Illness Service Psychiatry Consult Requested By Primary Care Physician Tiarra London MD HPI The patient is a 26-year-old woman, with psychiatric history of bipolar disorder, anxiety, opiate use disorder, she is on Suboxone 24 mg BuSpar 20 tid lamotrigine and apparently the patient was reducing her Gabapentin 200 mg tid, trying to come off of IV Dilaudid, patient has history of abusing gabapentin in the past. Her last IV drug abuse was several months ago, compliant with medications and was being seen every couple of weeks for prescriptions. Apparently she was with her mother last night or the night before last,reported nothing out of the ordinary, was feeling fine per chart. Apparently on the day of admission, 08/03, she had two witnessed seizures, one in the morning with her father and one here in the emergency department. Patient was consulted to psychiatry due to bizarre behavior. On psychiatric evaluation patient is restless, with continues automatic-like, involuntary movement of her 4 limbs, but more pronounced in her lower limbs. Patient is asked to try to stop moving her limbs, but she is unable to stop. Patient has Marked bilateral pupil dilation. She is very confused, just answering simple questions, disoriented in time and place, unable to provide any meaningful information for psychiatric assessment at this moment. She does report good mood, denies suicidal or homicidal ideation, and reports visual hallucinations "I see bugs in the wall". Review of Systems ROS Limitations: Uncooperative Endocrine: DENIES: Abnorml menstrual pattern, Heat/cold intolerance, Polydipsia , Polyuria, Polyphagia Eyes: DENIES: Blurred vision, Diplopia, Eye inflammation, Eye pain, Vision loss , Photosensitivity, Double Vision Ears, nose, mouth, throat: DENIES: Tinnitus, Hearing loss, Vertigo, Nasal discharge, Oral lesions, Throat pain, Hoarseness, Ear Pain, Running Nose, Epistaxis, Sinus Pain, Toothache, Odynophagia Cardiovascular: DENIES: Chest pain, Palpitations, Syncope, Dyspnea on Exertion , PND, Lower Extremity Edema, Orthopnea, Claudication Musculoskeletal: DENIES: Joint pain, Muscle aches, Stiffness, Joint Swelling, Back pain, Neck pain Integumentary: DENIES: Abnormal pigmentation, Pruritus, Rash, Nail changes, Breast masses, Breast skin changes, Nipple discharge Hematologic/lymphatic: DENIES: Bruising, Lymphadenopathy Immunologic/allergic: DENIES: Eczema, Urticaria Neurologic: COMPLAINS OF: Seizures, Tremor, DENIES: Abnormal gait, Headache, Localized weakness, Paresthesias, Speech Problems, Poor Balance Psychiatric: COMPLAINS OF: Hallucinations Past Family Social History Coded Allergies: No Known Allergies (Unverified , 12/09/14) Reported Medications Buspirone 10 Mg Tab10 Mg PO TID Ref 0 08/03/16 Lamotrigine (Lamictal)150 Mg [id number] Mg PO DAILY #60 TAB Ref 0 08/03/16 Gabapentin 100 Mg [id number] Mg PO TID #90 CAP Ref 0 08/03/16 Buprenorphine-Naloxone Sublingual Film (Suboxone Sublingual Film)2-0.5 Mg Film1 Film SL Unique ID number required: 08/03/16 Discontinued Scripts Zolpidem Tartrate (Ambien)10 Mg Tab10 Mg PO HS PRN (SLEEP) #10 TAB Ref 0 Prov:Cristel Hollingsworth MD 12/13/14 Ranitidine HCl (Zantac 150 Mg Tab)150 Mg [id number] Mg PO Q12HR #10 TAB Ref 0 Prov:Cristel Hollingsworth MD 12/13/14 Promethazine Hcl (Phenergan)25 Mg Tab25 Mg PO Q6H #20 TAB Ref 0 Prov:Cristel Hollingsworth MD 12/13/14 Hydroxyzine Pamoate (Vistaril)50 Mg [id number] Mg PO HS #7 CAP Ref 0 Prov:Cristel Hollingsworth MD 12/13/14 Gabapentin (Neurontin)300 Mg Dec156 Mg PO TID #15 CAP Ref 0 Prov:Cristel Hollingsworth MD 12/13/14 Clonazepam 1 Mg Tab1 Mg PO Q8HR #15 TAB Ref 0 Prov:Cristel Hollingsworth MD 12/13/14 Diclofenac Sod (Voltaren)50 Mg Tabec50 Mg PO TID #21 Prov:JASON DUENAS D.O. 04/26/13 Current Medications Medications (Trade) Dose Ordered Sig/Andres Route Start Time Stop Time Status Last Admin (NS 1000 ml Inj) 1,000 ml @ 60 mls/hr [id number] IV 08/03/16 11:00 08/03/16 12:45 (NS Flush) 2 ml UNSCH PRN IV FLUSH 08/03/16 10:30 (NS Flush) 2 ml BID IV FLUSH 08/03/16 21:00 08/04/16 08:58 (Zofran Inj) 4 mg Q6H PRN IVP 08/03/16 10:30 08/04/16 05:01 (Narcan Inj) 0.4 mg UNSCH PRN IV 08/03/16 10:30 (Ativan Inj) 2 mg Q10M PRN IV 08/03/16 10:30 08/04/16 13:03 Enalaprilat 1.25 mg 1.25 mg Q6H PRN IV 08/03/16 11:00 Buprenorphine HCl 0.3 mg/Sodium Chloride 51 ml @ 153 mls/hr Q6H PRN IV 08/03/16 21:30 08/03/16 23:30 (Lr 1000 ml Inj) 1,000 ml @ 175 mls/hr Q5H43M IV 08/04/16 08:15 08/04/16 08:58 Fosphenytoin Sodium 100 mgpe 100 mgpe Q8HR IV 08/04/16 22:00 Cefepime HCl 2000 mg/Sodium Chloride 100 ml @ 200 mls/hr Q8H IV 08/04/16 15:00 Potassium Chloride 100 ml @ 50 mls/hr Q2H PRN IV 08/04/16 14:30 Potassium Chloride 100 ml @ 50 mls/hr Q2H PRN IV 08/04/16 14:30 Potassium Chloride 100 ml @ 25 mls/hr UNSCH PRN IV 08/04/16 14:30 Potassium Chloride 100 ml @ 50 mls/hr Q2H PRN IV 08/04/16 14:30 (Magnesium Sulfate Inj/NS Inj) 100 ml @ 50 mls/hr UNSCH PRN IV 08/04/16 14:30 Magnesium Oxide 800 mg 800 mg UNSCH PRN PO 08/04/16 14:30 (Magnesium Sulfate Inj/NS Inj) 100 ml @ 50 mls/hr UNSCH PRN IV 08/04/16 14:30 Potassium Phosphate 2000 mg 2,000 mg Q4H PRN PO 08/04/16 14:30 (Sodium Phosphate Inj/NS 250 ml Inj) 250 ml @ 42 mls/hr UNSCH PRN IV 08/04/16 14:30 Potassium Phosphate 2000 mg 2,000 mg UNSCH PRN PO/TUBE 08/04/16 14:30 (Potassium Phosphate Inj/NS 250 ml Inj) 260 ml @ 42 mls/hr UNSCH PRN IV 08/04/16 14:30 Physical Exam Vital Signs Vital Signs Date Time Temp Pulse Resp B/P Pulse Ox O2 Delivery O2 Flow Rate FiO2 08/04/16 14:39 99.3 81 20 89/55 99 08/03/16 16:25 Room Air 08/03/16 10:52 21 Mental Status Examination Speech: Hesitant, Incoherent Orientation: Person Memory: Impaired (describe) Thought Process: Other (marked blocking thouhgt ) Thought Content: Other (no assessed) Hallucination Type: Auditory (patient does say that she is seeing bugs) Suicidal Ideation: No Previous Suicide Attempts: No Homicidal Ideation: No Previous Homicide Attempts: No Affect if Inappropriate: Blunt Mood: Other ("okay") Motor Activity: Abnormal gait-specify (restless, continuously moving her legs and arms) Assessment & Plan Problem List: (1) Delirium ICD Code: R41.0 (2) Post-ictal confusion Assessment & Plan: The patient is a 26-year-old woman, with psychiatric history of bipolar disorder, anxiety, opiate use disorder, she is on Suboxone 24 mg BuSpar 20 tid lamotrigine, Ambien 10 mg and apparently the patient was reducing her Gabapentin 200 mg tid, trying to come off of IV Dilaudid, patient has history of abusing gabapentin in the past. Her last IV drug abuse was several months ago, compliant with medications and was being seen every couple of weeks for prescriptions. Apparently she was with her mother last night or the night before last,reported nothing out of the ordinary , was feeling fine per chart. Apparently on the day of admission, 08/03, she had two witnessed seizures, one in the morning with her father and one here in the emergency department. Patient was consulted to psychiatry due to bizarre behavior. On psychiatric evaluation patient is restless, with continues automatic-like, involuntary movement of her 4 limbs, but more pronounced in her lower limbs. Patient is asked to try to stop moving her limbs, but she is unable to stop. Patient has Marked bilateral pupil dilation. She is confused, disoriented, unable to provide any meaningful information for the psychiatric assessment. Patient also endorses visual hallucinations of seeing bugs in the wall. This presentation is consistent with delirium most probably related with post ictal state of seizures/benzodiazepines withdrawal, but does not seem to be related with a primary psychiatric condition decompensation. EEG is important to rule out active epileptogenic focus. Follow-up neuro consult. Hold psychotropics. We'll follow-up. ICD Code: F05 Assessment & Plan Estimated LOS: days Javier Beltran MD Aug 04, 2016 15:10
--- NOTE | 2016-08-04 15:30 | HHI.PR ---
Neuropsych Emotional Emotional: UnabletoAssess: Emotional, Anxious/Fearful, Depressed/Sad, Hostile/ Resentful, Irritable/Angry/Frustrate, Labile, Constricted/Blunted Behavior Behavior: Unable to Asses: Behavior, Coping/Acceptance, Cooperative w/ Treatment, Motivation, Frustration Tolerance/[place], Impulsive/Agitated, Suicidal/ Homicidal Risk Cognitive Cognitive: Unable to Asses: Cognitive, Attention/Concentration, Confused/ Orientation, Insight/Awareness, Judgement/Problem-Solving, Memory Progress Notes/Response to Tx Contents of Sessions: Orientation Time with Patient: 15 minutes Premorbid psychological status Premorbid Cognitive, Emotional and Behavioral Status: Unstable. The patient has a long history of polysubstance dependence, and history of bipolar disorder and anxiety. Behavioral Reactions of Patient and Family/Support System: Tenuous. The patients family is experiencing ongoing issues of adjustment given the nature of the injury, and this aspect of recovery will require ongoing monitoring. Emotional/Behavioral Status of Patient and Family/Support System: Unstable. Pertinent issues, if appropriate to this patients clinical care, are described in detail above. Maximizing acute care outcome To be determined. Anticipated Problems To be determined. Treatment Plan This patient was too somnolent today to undergo even a basic evaluation (I believe I got there after she had an Ativan). I will return tomorrow once she is admitted to the floor. Diagnosis: Progress Note Narrative Saw patient briefly in ED. Patient was too somnolent to maintain consciousness or follow commands. I had the opportunity to consult with psychiatry on my way to see patient. I will follow up with patient tomorrow when she is on the floor and provide a more comprehensive opinion at that time. Thank you for the consult. Abelino Hughes PhD Aug 04, 2016 3:30 pm
[2016-08-04] MEDS: CEFEPIME INJ 2,000 MG in SODIUM CHLORIDE 0.9% INJ 100 ML IV SCH ×2 (15:33→22:19)
--- NOTE | 2016-08-04 15:51 | MB ---
cc: RONNY MERA M.D. DATE OF CONSULTATION: 07/09/2016 REASON FOR CONSULTATION: A consult requested by Dr. Sargent for evaluation for transesophageal echocardiogram. The patient is currently undergoing an EEG Dr. Maria is at the bedside, nurse is at the bedside. The patient does not respond to my questioning, so history is obtained for the chart. Apparently the patient has a history of IV drug abuse had a syncopal event, possible seizure Dr. Maria states that the patient actually does have a seizure disorder and is having active seizures currently. Apparently there was no bowel or bladder incontinence or vomiting. PAST MEDICAL HISTORY Per is present illness. ALLERGIES None. SOCIAL HISTORY Denies tobacco use or alcohol use. MEDICATIONS: Medications in the hospital Cerebyx 100 q.8 h Lactated Ringer's solution as needed PHYSICAL EXAMINATION VITAL SIGNS: Blood pressure 124/72 pulse 70, Respiratory rate 20, temperature 98.5. IN GENERAL: She is undergoing EEG she does not appear to be focal she does not respond. NECK: The neck is supple, no jugular venous distention. No bruits. CARDIOVASCULAR SYSTEM: S1-S2, No murmurs, rubs, or gallops. LUNGS: ABDOMEN: Soft, nontender, positive bowel sounds. EXTREMITIES: Lower extremity edema. LABORATORY FINDINGS: White count 9.4, hemoglobin 9.7, hematocrit 29.3. platelet count 309, sodium 145, potassium 3.6, chloride 111, bicarb 22.4, BUN 14, creatinine 0.60. ACT is less than 1. Toxicology appears to be negative. There is multiple pending screens. CT HEAD No acute intracranial abnormality bilateral ethmoid sinus disease. DIAGNOSIS 1. Seizure disorder 2. History of IV drug abuse 3. Murmur. 4. Hyperglycemia 5. Anemia. 6. Her blood cultures show no growth for 1 day. DISCUSSION This point time the patient is actually having seizures and Dr. Maria recommends not doing a transesophageal echocardiogram which I agreed with. I will start following up the patients 2-dimensional echocardiogram which the nurse states has been ordered. If the blood cultures remain negative we would reframe from doing a transesophageal echocardiogram. If the patient develops positive blood cultures and there is no obvious evidence of endocarditis, on transthoracic echo and the patient is cleared by neurology for transesophageal echocardiogram and the patient consents and is able to swallow. At that point and time we can possibly consider transesophageal echocardiogram and continue to monitor. MD BRINA Liriano/yehuda /1:47 PM /3:28 PM
[2016-08-04] MEDS ORDERED: CHLORHEXIDINE GLUCONATE 2 % 1 PACK (2 CLOTHS)(extra cloths) TOPICAL PRN (18:00)
[2016-08-04] MEDS ORDERED: GADODIAMIDE PF 287 MG/ML 10 ML VIAL (for RAD MRI) IV ONE (18:26)
--- NOTE | 2016-08-04 18:47 | RADRPT ---
EXAM DATE/TIME: 08/04/2016 18:15 [facility] COMPARISON: CT BRAIN W/O CONTRAST, August 03, 2016, 8:14. INDICATIONS : Seizures. Altered mental status. IVDU. CONTRAST: 10 cc Omniscan (gadodiamide) IV MEDICAL HISTORY : Seizures. Asthma. SURGICAL HISTORY : None. ENCOUNTER: Subsequent ACUITY: 1 day PAIN SCORE: Nonresponsive. LOCATION: cranial TECHNIQUE: Multiplanar, multisequence MRI of the brain was performed both prior to and following the administrat ion of paramagnetic contrast. FINDINGS: CEREBRUM: The ventricles are normal for age. No evidence of midline shift, mass lesion, hemorrhage or acute in farction. No extraaxial fluid collections are seen. The pituitary gland and suprasellar cistern are normal in configuration. WHITE MATTER: No significant signal abnormalities are seen in the white matter. POSTERIOR FOSSA: The cerebellum and brainstem are intact. The 4th ventricle is midline. The cerebellopontine angle is unremarkable. The cerebellar tonsils are normal in position. DIFFUSION IMAGING: No focal areas of restricted diffusion are seen. No evidence of acute infarction. EXTRACRANIAL: The visualized portions of the orbits are unremarkable. Mild mucosal thickening is noted within the m axillary sinuses, ethmoid air cells and frontal sinuses. POST-CONTRAST: No abnormal areas of parenchymal or dural enhancement. No evidence of blood-brain barrier breakdown. CONCLUSION: 1. No acute intracranial abnormality. 2. Mild mucosal thickening within the maxillary sinuses, ethmoid air cells and frontal sinuses. David Vizcarra MD on August 04, 2016 at 18:43 Board Certified Radiologist. This report was verified electronically.
--- NOTE | 2016-08-04 19:01 | EC ---
Study Study Date:08/04/2016 STUDY CONCLUSIONS SUMMARY - Left ventricle: The cavity size was normal. Wall thickness was normal. Systolic function was normal. The estimated ejection fraction was in the range of 60% to 65%. Wall motion was normal; there were no regional wall motion abnormalities. - Mitral valve: Mild regurgitation. If LV function is below 40, please consider prescribing an ACEI or ARB or document rationale for non-use. PROCEDURE DATA STUDY STATUS: Elective. Procedure: Transthoracic echocardiography. Image quality was good. Scanning was performed from the parasternal, apical, and subcostal acoustic windows. Study completion: The patient tolerated the procedure well. Transthoracic echocardiography. M-mode, complete 2D, complete spectral Doppler, and color Doppler. Patient status: Inpatient. CARDIAC ANATOMY LEFT VENTRICLE: The cavity size was normal. Wall thickness was normal. Systolic function was normal. The estimated ejection fraction was in the range of 60% to 65%. Wall motion was normal; there were no regional wall motion abnormalities. AORTIC VALVE: Trileaflet; normal thickness leaflets. Doppler: Transvalvular velocity was within the normal range. There was no stenosis. No regurgitation. Peak gradient: 15mm Hg (S). AORTA: Aortic root: The aortic root was normal in size. MITRAL VALVE: Mildly thickened leaflets, . Doppler: Transvalvular velocity was within the normal range. There was no evidence for stenosis. Mild regurgitation. Peak gradient: 6mm Hg (D). LEFT ATRIUM: The atrium was normal in size. RIGHT VENTRICLE: The cavity size was normal. Wall thickness was normal. PULMONIC VALVE: Doppler: Transvalvular velocity was within the normal range. There was no evidence for stenosis. No regurgitation. TRICUSPID VALVE: Structurally normal valve. Doppler: Transvalvular velocity was within the normal range. Trace regurgitation. PULMONARY ARTERY: The main pulmonary artery was normal-sized. Systolic pressure was within the normal range. RIGHT ATRIUM: The atrium was normal in size. PERICARDIUM: There was no pericardial effusion. SYSTEMIC VEINS: Inferior vena cava: The vessel was normal in size. BASIC MEASUREMENTS ADULT Normal Left ventricle LV internal dimension, ED, chordal level, 46.5 mm 43-52 PLAX LV internal dimension, ES, chordal level, 33.3 mm 23-38 PLAX Fractional shortening, chordal level, PLAX *28 % >29 LV posterior wall thickness, ED 6.54 mm IVS/LVPW ratio, ED 1.22 <1.3 Ventricular septum Septal thickness, ED 7.96 mm Aortic valve Leaflet separation 17 mm 15-26 Left atrium Anterior-posterior dimension 30 mm Right ventricle RV internal dimension, ED, PLAX *18.7 mm 19-38 BASIC MEASUREMENTS ADULT Normal Aortic valve Leaflet separation 17 mm 15-26 Aorta Root diameter, ED 27 mm 20-37 DOPPLER MEASUREMENTS ADULT Normal Aortic valve Peak velocity, S 191 cm/s Peak gradient, S 15 mm Hg Mitral valve Peak E-wave velocity 124 cm/s Peak A-wave velocity 65.4 cm/s Peak gradient, D 6 mm Hg Peak E/A ratio 1.9 Tricuspid valve Regurgitant peak velocity 227 cm/s Peak RV-RA gradient, S 21 mm Hg Maximal regurgitant velocity 227 cm/s LEGEND: Mean values are shown as u=mean value. Asterisk (*) sosa values outside specified normal range. Prepared and signed by Misael Burgess [id number]
[2016-08-04] MEDS: SODIUM CHLORIDE 0.9% IV SCH (20:47)
[2016-08-04] MEDS: BUPRENORPHINE IV SCH (20:47)
[2016-08-04] MEDS: FOSPHENYTOIN SODIUM 100 MG PE/2 ML VIAL IV SCH (20:53)
[2016-08-05] VITALS (14 sets, daily range): BP systolic 104–139; BP diastolic 66–72; PULSE 53–82; RESP 18–25; TEMP 97.6–99.1; O2SAT 93–100
[2016-08-05] MEDS: LACTATED RINGER'S 1000 ML INJ 1,000 ML IV SCH ×4 (00:57→21:43)
[2016-08-05] MEDS: CHLORHEXIDINE GLUCONATE 2 % 1 PACK (2 CLOTHS)(taper/protocol) TOPICAL SCH (00:57)
[2016-08-05] MEDS: CEFEPIME INJ 2,000 MG in SODIUM CHLORIDE 0.9% INJ 100 ML IV SCH ×3 (05:06→21:47)
[2016-08-05] MEDS: FOSPHENYTOIN SODIUM 100 MG PE/2 ML VIAL IV SCH ×3 (05:06→22:00)
--- NOTE | 2016-08-05 05:17 | MG ---
cc: REJI JOHN M.D. Lab No: [id number] Date: 08/04/2016 Age: 26 Sex: F Race: NOTE Hyperventilation not performed. MEDICATIONS 2 mg of Ativan given. INDICATIONS Two witnessed seizures, polysubstance abuse. FINDINGS The recording shows bifrontal high amplitude sharp waves at about 2 Hz with an underlying 5 Hz slowing at the beginning of the recording and throughout the recording 2-3 Hz, bifrontal high amplitude sharp waves are seen, almost [id number] that would last about 3 to 8 seconds. That happens very frequently throughout the recording. Hyperventilation and photic stimulation were not performed. Towards the end of the recording some 6 Hz diffuse slowing is seen and some normal alpha rhythms are noted in the middle of the recording. Overall, as recording goes on it seems to get better and then almost a normal-appearing background is noted towards the end of the recording. She had some leg shaking which did not correlate with any major change in the recording. IMPRESSION Very abnormal EEG with bifrontal predominant sharp waves almost [id number] but towards the end of the recording it got much better. Subclinical seizure at the beginning of the recording could be considered. Clinical correlation is needed. MD BRYCE Aburto/EMILY /11:41 PM /5:02 AM
--- NOTE | 2016-08-05 07:40 | HHI.PR ---
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 Does not remember much other than strting to seize in car with Dad. Adamently denies any non compliance with her drug regimen. Denies pain. Very sleepy. Asked about court proceedings yesterday and reassured No headache Tracking better. PERRLA Oriented to person. Needed reminder of time. Oriented to place less dehydrated. Trying directed movements of legs and arms on her own to stretch No more restless athetotic movement Has a signiifcant cough (was at aspiration risk while vomiting inlast two days) AVSS Still unclear what is etiology of her seizure activity. Medications at time of seizure were lamcital 15, suboxone 24, buspar 10 TID an gabapentin 100 TID Currently receiving IV burprenorhine to avoid withdrawl an complications with diagnosis. 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 Tiarra London MD Aug 05, 2016 07:40
[2016-08-05] MEDS: LORazepam 2 MG/ML VIAL IV PRN ×2 (08:06→19:04)
[2016-08-05] MEDS: SODIUM CHLORIDE 0.9% FLUSH 10 ML FLUSH IV FLUSH SCH ×2 (08:33→21:00)
[2016-08-05] MEDS: BUPRENORPHINE IV SCH (08:34)
[2016-08-05] MEDS: SODIUM CHLORIDE 0.9% IV SCH (08:34)
[2016-08-05] MEDS ORDERED: FOSPHENYTOIN SODIUM 100 MG PE/2 ML VIAL IV ONE (09:45)
--- NOTE | 2016-08-05 10:31 | PD.CARD.PN ---
Subjective Subjective Remarks asleep in nad Objective Vital Signs / I&O Vital Signs Date Time Temp Pulse Resp B/P Pulse Ox O2 Delivery O2 Flow Rate FiO2 08/05/16 08:20 96 08/05/16 06:00 56 08/05/16 04:00 98.6 73 25 123/72 100 08/05/16 04:00 73 08/05/16 02:00 81 08/05/16 00:00 77 08/05/16 00:00 99.1 77 18 105/66 99 08/04/16 22:00 81 08/04/16 20:00 75 08/04/16 20:00 99.0 75 25 120/70 98 08/04/16 19:00 72 08/04/16 16:25 79 08/04/16 16:14 81 16 101/63 100 08/04/16 15:46 99.3 78 22 100/59 99 08/04/16 15:16 99.2 78 18 99/61 99 08/04/16 14:39 99.3 81 20 89/55 99 08/04/16 14:06 99.6 79 18 91/55 100 I/O 08/04/16 08/04/16 08/04/16 08/05/16 08/05/16 08/05/16 07:00 15:00 23:00 07:00 15:00 23:00 Intake Total 175 ml 2726 ml 900 ml Output Total 350 ml 650 ml Balance 175 ml 2376 ml 250 ml Intake Oral 0 ml IV Total 175 ml 2726 ml 900 ml Output Urine Total 350 ml 650 ml # Voids 2 Laboratory GENERAL: SKIN: Warm and dry. HEAD: Normocephalic. EYES: No scleral icterus. No injection or drainage. NECK: Supple, trachea midline. No JVD or lymphadenopathy. CARDIOVASCULAR: Regular rate and rhythm without murmurs, gallops, or rubs. RESPIRATORY: Breath sounds equal bilaterally. No accessory muscle use. GASTROINTESTINAL: Abdomen soft, non-tender, nondistended. MUSCULOSKELETAL: No cyanosis, or edema. BACK: Nontender without obvious deformity. No CVA tenderness. Laboratory Tests Test 08/04/16 08/05/16 16:53 04:43 Nasal Screen MRSA (PCR) NEGATIVE Phenytoin (Dilantin) Level 12.7 MCG/ML Assessment and Plan Problem List: (1) Seizures Assessment and Plan 1.) mr - mild, assymptomatic, f/u blood cultures Misael Burgess MD Aug 05, 2016 10:31
--- NOTE | 2016-08-05 12:22 | HHI.CCPN ---
Subjective Remarks/Hospital Course Patient is a 26 year-old female with past medical history significant for IV drug use with Dilaudid, mood disorder, Suboxone maintenance, recent IUD placement who was brought in the emergency department on 08/03/16 for two witnessed seizures, previously had similar episodes while in active addiction. Apparently admitted IV Dilaudid use was a few months ago. Neurology was consulted and EEG was performed-generalized seizure activity on her EEG that subsided somewhat with Ativan, but there was no clinical seizure. Patient was given Ativan 2 mg IV 2 and was loaded with IV Cerebyx 1 g followed by 100 mg IV every 8 hours. Patient had prolonged subclinical seizures/status and for this reason and with possibility of intubation critical care was consulted. I evaluated the patient in the H pod, she is lethargic but wakes her up to sternal rub appears to be protecting airway. On EEG sz seems to have subsided. Patient also has a pansystolic murmur at the mitral area. Blood cultures have been sent and 2-D echo done report is not available yet. I have given 1 dose of vancomycin IV and will place on cefepime 2 g IV every 8 hours. D/W Dr. Maria. EEG reported as BiPLED's vs seizure SUBJ: 08/05: Somnolent but wakes up easily. Dilantin level was 12.7, additional loading dose given by Dr. Maria. Follwoign commands today. Echo- no vegetation, mild MR Objective Vital Signs Date Time Temp Pulse Resp B/P Pulse Ox O2 Delivery O2 Flow Rate FiO2 08/05/16 10:00 60 08/05/16 08:20 96 08/05/16 04:00 98.6 25 123/72 08/03/16 16:25 Room Air 08/03/16 10:52 21 Intake and Output 08/04/16 08/04/16 08/05/16 08:00 16:00 00:00 Intake Total 175 ml 2726 ml Output Total 350 ml Balance 175 ml 2376 ml Result Diagram: 08/04/16 0650 08/04/[address] head normal Objective Remarks GEN: Well nourished 26 year old, somnolent, but wakes up easily follows commands EYES: conjunctiva normal, pupils equal reactive ENT: Oral cavity moist, airway patent NECK: No JVD LUNGS: Chest clear bilaterally, no wheezes or crackles CARDIOVASCULAR: RR with 2/6 systolic murmur heard best the apex. GI: Soft non tender, without organomegaly. . MSK: Track sosa bilateral antecubital areas. NEURO: Somnolent but wakes up easily follows commands, in all 4 extremities A/P Assessment and Plan ASSESSMENT: Subclinical status epilepticus Acute encephalopathy New murmur, due to mitral regurgitation IVDU PLAN: NEURO: Subclinical seizures Acute encephalopathy IV drug use -EEG shows subclinical seizure activity. Repeat EEG today - Received 4 mg IV Ativan. Loaded with IV Cerebyx 1 g and scheduled 100 mg IV every 8 hours -Level 12.7, additional [address] Maria. Start Phenobarb if repeat EEG showing seizure activity -MRI of the brain with and without contrast-no acute findings RESP: -Nasal cannula oxygen. DuoNeb every 6 hours when necessary -Aggressive pulmonary toilet CV: Mild mitral regurgitation -Normal saline IV fluids 2L bolus 08/04. Reduce IVF to 75 ml per hour -2D Echo. No vegetation, mild mitral regurgitation. Cardiology Dr. Dr. Burgess following GI: -Heart healthy diet : -Monitor renal function closely. Campa catheter. ID: -IV vancomycin 1GM IVx1 . On cefepime 2 g IV every 8 hours to cover for Pseudomonas. DC ABX if cultures negative 48 hours -Blood cultures have been sent, follow up HEME: -Monitor CBC, CMP, coags ENDO: -Electrolyte replacement protocol PROPH: -Bilateral lower extremity SCDs. Start Lovenox 40 daily sq. Protonix for GI prophylaxis LINES: -Utilize peripheral IVs, central line if needed Level 3 Mickey Liu MD Aug 05, 2016 12:22
[2016-08-05 13:30] LABS: AUTOMATED NEUTROPHIL # 5.9 TH/MM3 (1.8-7.7); BASOPHIL # 0.1 TH/MM3 (0-0.2); BASOPHIL % 0.6 % (0.0-2.0); EOSINOPHIL # 0.1 TH/MM3 (0-0.4); EOSINOPHIL % 0.8 % (0.0-4.0); HEMATOCRIT 32.5 % (35.0-46.0); LYMPHOCYTE # 2.4 TH/MM3 (1.0-4.8); MEAN CELL VOLUME 76.7 FL (80.0-100.0); MEAN CORPUSCULAR HEMOGLOBIN 24.7 PG (27.0-34.0); MEAN CORPUSCULAR HGB CONC 32.2 % (32.0-36.0); MONO % 5.3 % (0.0-8.0); NEUT % 66.3 % (16.0-70.0); PLATELET COUNT 293 TH/MM3 (150-450); RED BLOOD COUNT 4.24 MIL/MM3 (4.00-5.30); RED CELL DISTRIBUTION WIDTH 15.7 % (11.6-17.2); WHITE BLOOD COUNT 8.8 TH/MM3 (4.0-11.0)
[2016-08-05 13:31] LABS: HEMO FLAGS AUTO DIFF
[2016-08-05] MEDS: ENOXAPARIN SODIUM 40 MG/0.4 ML SYRINGE SQ SCH (13:33)
[2016-08-05] MEDS: SODIUM CHLOR 0.9% 1000 ML INJ 1,000 ML IV SCH (13:34)
--- NOTE | 2016-08-05 13:35 | HHI.PR ---
Neuropsych Emotional Emotional: UnabletoAssess: Emotional, Anxious/Fearful, Depressed/Sad, Hostile/ Resentful, Irritable/Angry/Frustrate, Labile, Constricted/Blunted Behavior Behavior: Unable to Asses: Behavior, Coping/Acceptance, Cooperative w/ Treatment, Motivation, Frustration Tolerance/Sullivan, Impulsive/Agitated, Suicidal/ Homicidal Risk Cognitive Cognitive: Unable to Asses: Cognitive, Attention/Concentration, Confused/ Orientation, Insight/Awareness, Judgement/Problem-Solving, Memory Progress Notes/Response to Tx Contents of Sessions: Adjustment Premorbid psychological status Premorbid Cognitive, Emotional and Behavioral Status: Unstable. The patient has a long history of polysubstance dependence, and history of bipolar disorder and anxiety. Behavioral Reactions of Patient and Family/Support System: Tenuous. The patients family is experiencing ongoing issues of adjustment given the nature of the injury, and this aspect of recovery will require ongoing monitoring. Emotional/Behavioral Status of Patient and Family/Support System: Unstable. Pertinent issues, if appropriate to this patients clinical care, are described in detail above. Maximizing acute care outcome To be determined. Anticipated Problems To be determined. Treatment Plan This patient was too somnolent today to undergo even a basic evaluation (I believe I got there after she had an Ativan). I will return tomorrow once she is admitted to the floor. Impression Today was a second attempt to assess this patient's neurocognitive status in light of her medical history. The patient was able to be aroused and appeared not to be able to maintain alertness, falling back to sleep. When she was told that her participation in the evaluation was dependent on when she would be discharged, she perked right up but then added that she could not possibly participate right now because she hadn't eaten "in days." Based on my education , training and experience, it is my clinical opinion that there is an underlying pattern of characterological maladjustment and manipulative behavior that does serve to maintain her dysfunction. I will attempt again to evaluate her tomorrow, perhaps she will be more willing. Diagnosis: (1) Manipulative personality disorder Status: Acute Progress Note Narrative Second attempt to evaluate this patient. The patient was able to be aroused and appeared not to be able to maintain alertness, falling back to sleep. When she was told that her participation in the evaluation was dependent on when she would be discharged, she perked right up but then added that she could not possibly participate right now because she hadn't eaten "in days." Based on my education, training and experience, it is my clinical opinion that there is an underlying pattern of characterological maladjustment and manipulative behavior that does serve to maintain her dysfunction. I will attempt again to evaluate her tomorrow, perhaps she will be more willing. Abelino Hughes PhD Aug 05, 2016 1:35 pm
[2016-08-05 14:02] LABS: OVALOCYTES 1+ (NORMAL); SCAN/DIFF AUTO DIFF CONFIRMED
[2016-08-05] MEDS: BUPRENORPHINE HCL 0.3 MG/1 ML VIAL IV PUSH SCH (21:37)
--- NOTE | 2016-08-05 23:31 | MG ---
cc: REJI JOHN M.D. Sex: F EE HISTORY: Status post Ativan. Bifrontal sharps before, two witnessed seizures, substance abuse. DESCRIPTION: Bifrontal 3 hertz slowing is seen of high amplitude to start the recording, coming down to 2 hertz. At times a little sharply contoured. This continues throughout most of the recording, at times some spindle-like activity is seen. The recording overall is synchronous and symmetric. At times it is almost rhythmic, almost FIRDA like. Other times there appeared to possibly be some small sharps intermixed with the slowing such as almost a sharp slow wave such as epoch 79 on the transverse montage. Some of this can be seen on the bipolar montage at that same time. Photic stimulation is performed without significant posterior driving. IMPRESSION Diffuse bifrontal delta slowing consistent with a severe diffuse encephalopathy. Whether there is some sharp slow wave complexes within that is at times hard to ascertain. A primary generalized slowing could be considered. If so, this is very frequent activity and markedly abnormal. Clinical correlation is needed. MD BRYCE Aburto/JULIANE /10:44 PM /11:23 PM
[2016-08-06] VITALS (8 sets, daily range): BP systolic 102–138; BP diastolic 56–86; PULSE 48–85; RESP 12–16; TEMP 98.1–99; O2SAT 96–100
[2016-08-06] MEDS: CHLORHEXIDINE GLUCONATE 2 % 1 PACK (2 CLOTHS)(taper/protocol) TOPICAL SCH (04:00)
[2016-08-06 05:03] LABS: AUTOMATED NEUTROPHIL # 3.8 TH/MM3 (1.8-7.7); BASOPHIL % 0.4 % (0.0-2.0); EOSINOPHIL # 0.2 TH/MM3 (0-0.4); EOSINOPHIL % 3.7 % (0.0-4.0); HEMATOCRIT 36.7 % (35.0-46.0); LYMPH % 31.1 % (9.0-44.0); MEAN CELL VOLUME 76.2 FL (80.0-100.0); MEAN CORPUSCULAR HEMOGLOBIN 24.5 PG (27.0-34.0); MEAN CORPUSCULAR HGB CONC 32.1 % (32.0-36.0); NEUT % 58.8 % (16.0-70.0); PLATELET COUNT 286 TH/MM3 (150-450); RED BLOOD COUNT 4.81 MIL/MM3 (4.00-5.30); RED CELL DISTRIBUTION WIDTH 15.3 % (11.6-17.2); WHITE BLOOD COUNT 6.5 TH/MM3 (4.0-11.0)
[2016-08-06 05:06] LABS: HEMO FLAGS AUTO DIFF
[2016-08-06 05:29] LABS: ALKALINE PHOSPHATASE 42 U/L (45-117); ALT (GPT) 18 U/L (10-53); ANION GAP 9 MEQ/L (5-15); AST (GOT) 14 U/L (15-37); BICARBONATE 26.8 MEQ/L (21.0-32.0); BLOOD UREA NITROGEN 7 MG/DL (7-18); CHLORIDE 104 MEQ/L (98-107); GLOMERULAR FILTRATION RATE 166 ML/MIN (>89); MAGNESIUM 1.9 MG/DL (1.5-2.5); POTASSIUM 3.2 MEQ/L (3.5-5.1); SODIUM (NA) 140 MEQ/L (136-145); TOTAL BILIRUBIN ADULT 0.1 MG/DL (0.2-1.0)
[2016-08-06] MEDS: CEFEPIME INJ 2,000 MG in SODIUM CHLORIDE 0.9% INJ 100 ML IV SCH (05:29)
[2016-08-06] MEDS: FOSPHENYTOIN SODIUM 100 MG PE/2 ML VIAL IV SCH (05:30)
[2016-08-06] MEDS: LACTATED RINGER'S 1000 ML INJ 1,000 ML IV SCH (05:30)
[2016-08-06] MEDS: SODIUM CHLOR 0.9% 1000 ML INJ 1,000 ML IV SCH (05:30)
--- NOTE | 2016-08-06 05:52 | RADRPT ---
EXAM DATE/TIME: 08/06/2016 03:42 [facility] COMPARISON: CHEST SINGLE AP, December 10, 2014, 11:10. INDICATIONS : Shortness of breath, possible pulmonary disease. MEDICAL HISTORY : Seizures SURGICAL HISTORY : None. ENCOUNTER: Initial ACUITY: 2 days PAIN SCORE: 0/10 LOCATION: Bilateral chest FINDINGS: A single view of the chest demonstrates mild basilar airspace disease. No significant effusion. No pn eumothorax. Heart size mildly enlarged. CONCLUSION: 1. Mild basilar airspace disease most characteristic of dependent atelectasis. No significant effusio n. Tru Jackson MD on August 06, 2016 at 5:47 Board Certified Radiologist. This report was verified electronically.
[2016-08-06 07:59] LABS: OVALOCYTES 1+ (NORMAL); SCAN/DIFF AUTO DIFF CONFIRMED
--- NOTE | 2016-08-06 08:20 | HHI.PR ---
Subjective Remarks no new complaints. eeg monitor on no sz's seen just artifact pt is hungry Objective Vital Signs Date Time Temp Pulse Resp B/P Pulse Ox O2 Delivery O2 Flow Rate FiO2 08/06/16 06:00 62 08/06/16 04:51 98.1 48 12 102/59 96 08/06/16 04:51 48 08/06/16 02:00 51 08/06/16 00:00 98.1 60 12 114/56 96 08/06/16 00:00 60 08/05/16 22:00 53 08/05/16 20:57 98 21 08/05/16 20:00 97.6 68 20 114/68 98 08/05/16 20:00 68 08/05/16 18:00 82 08/05/16 16:00 82 08/05/16 16:00 99.1 82 20 104/67 99 08/05/16 14:00 55 08/05/16 12:00 55 08/05/16 12:00 98.3 55 20 117/71 93 08/05/16 10:00 60 08/05/16 08:20 96 I/O 08/05/16 08/05/16 08/05/16 08/06/16 08/06/16 08/06/16 07:00 15:00 23:00 07:00 15:00 23:00 Intake Total 900 ml 1350 ml 680 ml 1278 ml Output Total 650 ml 1200 ml 350 ml 300 ml Balance 250 ml 150 ml 330 ml 978 ml Intake Oral 50 ml 0 ml 0 ml IV Total 900 ml 1300 ml 680 ml 1278 ml Output Urine Total 650 ml 1200 ml 350 ml 300 ml Stool Total 0 ml 0 ml # Voids 3 1 1 # Bowel Movements 0 Result Diagram: 08/06/16 0432 08/06/16 043 Imaging mri brain no acute findings pht 08/05 12.7,07/27-8.9 Other Results awake alert oriented, perrla no nystagmus follows commands no weakness gait no tested for now Assessment and Plan Assessment and Plan a/p s/p status epilepticus -cont cerebyx will change to 200mg iv q8 with a level in am -if stable and able to swallow can change to PO dilantin same dose-dose will need to be adjusted to her level-keep level closer to 15. -ok for telemetry -LP ok to be done to check for infection Amanda Maria MD Aug 06, 2016 08:20
--- NOTE | 2016-08-06 08:22 | PD.PN.STU ---
Subjective Remarks Patient was laying in bed with nurse at bedside. She was crying, states that it is because she was in pain. Pain was related to potassium infusion and a headache. Nurse states that she would like something for pain. Patient states that she doesn't think anything has changed recently other than recently beginning her menstrual cycle. She had previously been amenorrheic for over a year. She can recall events from the day of her first seizure, and bits and pieces of things that have happened while in the hospital. She adamantly denies any drug use other than what she has been prescribed. She claims to have no history of HSV, Hep C, or HIV. Objective Vitals Patient sitting up in bed crying, she appears to be in pain. She is A/O x4. Vital Signs Date Time Temp Pulse Resp B/P Pulse Ox O2 Delivery O2 Flow Rate FiO2 08/06/16 06:00 62 08/06/16 04:51 98.1 48 12 102/59 96 08/06/16 04:51 48 08/06/16 02:00 51 08/06/16 00:00 98.1 60 12 114/56 96 08/06/16 00:00 60 08/05/16 22:00 53 08/05/16 20:57 98 21 08/05/16 20:00 97.6 68 20 114/68 98 08/05/16 20:00 68 08/05/16 18:00 82 08/05/16 16:00 82 08/05/16 16:00 99.1 82 20 104/67 99 08/05/16 14:00 55 08/05/16 12:00 55 08/05/16 12:00 98.3 55 20 117/71 93 08/05/16 10:00 60 08/05/16 08:20 96 I/O 08/05/16 08/05/16 08/05/16 08/06/16 08/06/16 08/06/16 07:00 15:00 23:00 07:00 15:00 23:00 Intake Total 900 ml 1350 ml 680 ml 1278 ml Output Total 650 ml 1200 ml 350 ml 300 ml Balance 250 ml 150 ml 330 ml 978 ml Intake Oral 50 ml 0 ml 0 ml IV Total 900 ml 1300 ml 680 ml 1278 ml Output Urine Total 650 ml 1200 ml 350 ml 300 ml Stool Total 0 ml 0 ml # Voids 3 1 1 # Bowel Movements 0 HEENT: pupils round and reactive, anicteric sclera Heart continues to have Systolic regurgitant murmur at the mitral area. Reflexes are slightly reduced compared to previous examinations. Result Diagram: 08/06/1643108/06/16431 A/P Assessment and Plan Status Post 3 [place] Seizures patient is being followed by Dr. Carlin for neurological consultation and anti-seizure medication control LP would be of benefit in this patient to rule out any forms of Viral Encephalitides that could be a rare cause of the epileptiform discharges Continue to monitor for signs of altered mental status Opioid Dependance continue IV buprenorphine Mitral Regurgitation patient had ARNIE done, I have not seen the results of the study at this point continue to follow blood cultures, they currently have no growth after two days. Diet consider advancing diet once the patient has been seizure free for >24 hours. Above note read and reviewed with Eusebio and Dr. Liu and Dr. Eller. LP likely of low yield with respect to risk factors. Will recheck CBC and do herpes titers today will change suboxone to sublingual. Will allow special events manager to advance otherwise. Discharge Planning Patient does not meet criteria for discharge at this time. Consult case management for assistance with regaining custody of her children, home care needs, information about driving privileges López Bone Aug 06, 2016 08:22 Tiarra London MD Aug 06, 2016 09:19
[2016-08-06] MEDS: BUPRENORPHINE HCL 0.3 MG/1 ML VIAL IV PUSH SCH (09:00)
[2016-08-06] MEDS: SODIUM CHLORIDE 0.9% FLUSH 10 ML FLUSH IV FLUSH SCH (09:00)
--- NOTE | 2016-08-06 11:45 | HHI.PR ---
Subjective Remarks resting comfortably with no distress. denies pain. no seizures over night. d/w the RN and no acute issues. Objective Vitals Vital Signs Date Time Temp Pulse Resp B/P Pulse Ox O2 Delivery O2 Flow Rate FiO2 08/06/16 06:00 62 08/06/16 04:51 98.1 48 12 102/59 96 08/06/16 04:51 48 08/06/16 02:00 51 08/06/16 00:00 98.1 60 12 114/56 96 08/06/16 00:00 60 08/05/16 22:00 53 08/05/16 20:57 98 21 08/05/16 20:00 97.6 68 20 114/68 98 08/05/16 20:00 68 08/05/16 18:00 82 08/05/16 16:00 82 08/05/16 16:00 99.1 82 20 104/67 99 08/05/16 14:00 55 08/05/16 12:00 55 08/05/16 12:00 98.3 55 20 117/71 93 I/O 08/05/16 08/05/16 08/05/16 08/06/16 08/06/16 08/06/16 07:00 15:00 23:00 07:00 15:00 23:00 Intake Total 900 ml 1350 ml 680 ml 1278 ml Output Total 650 ml 1200 ml 350 ml 300 ml Balance 250 ml 150 ml 330 ml 978 ml Intake Oral 50 ml 0 ml 0 ml IV Total 900 ml 1300 ml 680 ml 1278 ml Output Urine Total 650 ml 1200 ml 350 ml 300 ml Stool Total 0 ml 0 ml # Voids 3 1 1 # Bowel Movements 0 Result Diagram: 08/06/16 0432 08/06/16 0432 Imaging Last Impressions Chest X-Ray 08/06/16 0600 Signed Impressions: Service Date/Time: July 03:42 - CONCLUSION: 1. Mild basilar airspace disease most characteristic of dependent atelectasis. No significant effusion. Tru Jackson MD Brain MRI 08/04/16 0000 Signed Impressions: Service Date/Time: Thursday, August 04, 2016 18:15 - CONCLUSION: 1. No acute intracranial abnormality. 2. Mild mucosal thickening within the maxillary sinuses, ethmoid air cells and frontal sinuses. David Vizcarra MD Head CT 08/03/16 7127 Signed Impressions: Service Date/Time: Wednesday, August 03, 2016 08:14 - CONCLUSION: 1. No acute intracranial abnormality. 2. Bilateral ethmoid sinus disease. Jhon Eller Jr., MD Objective Remarks GENERAL: This is a well-nourished, well-developed patient, in no apparent distress. CARDIOVASCULAR: Regular rate and regular rhythm without murmurs, gallops, or rubs. RESPIRATORY: Clear to auscultation. Breath sounds equal bilaterally. No wheezes , rales, or rhonchi. GASTROINTESTINAL: Abdomen soft, non-tender, nondistended. Normal, active bowel sounds MUSCULOSKELETAL: Extremities without clubbing, cyanosis, or edema. NEURO: Alert & Oriented x4 to person, place, time, situation. Moves all ext x4 Medications and IVs Current Medications Sodium Chloride 2 ml 2 ml UNSCH PRN IVF FLUSH AFTER USING IV ACCESS; Start at 08:00; Stop 08/03/16 at 10:55; Status DC Sodium Chloride (NS 1000 ml Inj) 1,000 ml @ 2,000 mls/hr Q30M ONCE IV Last administered on 08/03/16 08:41; Start 08/03/16 at 08:00; Stop 08/03/16 at 08:29 ; Status DC Lorazepam (Ativan Inj) 2 mg STK-MED ONCE .ROUTE ; Start 08/03/16 at 08:43; Stop 08/03/16 at 08:44; Status DC Lorazepam 2 mg 2 mg ONCE ONCE IV PUSH Last administered on 08/03/16 09:03; Start 08/03/16 at 09:00; Stop 08/03/16 at 09:01; Status DC Sodium Chloride (NS 1000 ml Inj) 1,000 ml @ 60 mls/hr [id number] IV Last administered on 08/06/16 05:30; Start 08/03/16 at 11:00; Stop 08/06/16 at 09:24 ; Status DC Sodium Chloride (NS Flush) 2 ml UNSCH PRN IV FLUSH FLUSH AFTER USING IV ACCESS ; Start 08/03/16 at 10:30 Sodium Chloride (NS Flush) 2 ml BID IV FLUSH Last administered on 08/06/16 09: 00; Start 08/03/16 at 21:00 Ondansetron HCl (Zofran Inj) 4 mg Q6H PRN IVP NAUSEA OR VOMITING Last administered on 08/04/16 05:01; Start 08/03/16 at 10:30 Naloxone HCl (Narcan Inj) 0.4 mg UNSCH PRN IV SEE LABEL COMMENTS; Start at 10:30 Lorazepam (Ativan Inj) 2 mg Q10M PRN IV SEE LABEL COMMENTS Last administered on 08/05/16 19:04; Start 08/03/16 at 10:30 Enalaprilat 1.25 mg 1.25 mg Q6H PRN IV SBP> OR = 180, DBP> OR = 100; Start at 11:00 Buprenorphine HCl 0.3 mg/Sodium Chloride 51 ml @ 153 mls/hr Q6H PRN IV WITHDRAWAL Last administered on 08/03/16 23:30; Start 08/03/16 at 21:30; Stop 08/04/16 at 21:00; Status DC Lactated Ringer's 1,000 ml @ 125 mls/hr Q8H IV Last administered on 08/06/16 05:30; Start 08/04/16 at 08:15; Stop 08/06/16 at 09:24; Status DC Fosphenytoin Sodium/Sodium Chloride (Cerebyx Inj/NS Inj) 70 ml @ 280 mls/hr ONCE ONCE IV Last administered on 08/04/16 12:59; Start 08/04/16 at 13:00; Stop 08/04/16 at 13:14; Status DC Fosphenytoin Sodium (Cerebyx Inj) 100 mgpe Q8HR IM ; Start 08/04/16 at 14:00; Stop 08/04/16 at 14:13; Status DC Fosphenytoin Sodium 100 mgpe 100 mgpe Q8HR IV Last administered on 08/06/16 05 :30; Start 08/04/16 at 22:00; Stop 08/06/16 at 08:22; Status DC Cefepime HCl 2000 mg/Sodium Chloride 100 ml @ 200 mls/hr Q8H IV Last administered on 08/06/16 05:29; Start 08/04/16 at 15:00; Stop 08/06/16 at 09:24 ; Status DC Potassium Chloride 100 ml @ 50 mls/hr Q2H PRN IV For Potassium 2.8 - 3.2 mEq/ L Last administered on 08/06/16t 06:52; Start 08/04/16 at 14:30 Potassium Chloride 100 ml @ 50 mls/hr Q2H PRN IV For Potassium 2.8 - 3.2 mEq/L ; Start 08/04/16 at 14:30 Potassium Chloride 100 ml @ 25 mls/hr UNSCH PRN IV For Potassium 3.3 - 3.5 mEq /L; Start 08/04/16 at 14:30 Potassium Chloride 100 ml @ 50 mls/hr Q2H PRN IV For Potassium 3.3 - 3.5 mEq/L ; Start 08/04/16 at 14:30 Magnesium Sulfate/ Sodium Chloride (Magnesium Sulfate Inj/NS Inj) 100 ml @ 50 mls/hr UNSCH PRN IV For Magnesium 0.9 - 1.1 mg/dL; Start 08/04/16 at 14:30 Magnesium Oxide 800 mg 800 mg UNSCH PRN PO For Magnesium 1.2 - 1.6 mg/dL; Start 08/04/16 at 14:30 Magnesium Sulfate/ Sodium Chloride (Magnesium Sulfate Inj/NS Inj) 100 ml @ 50 mls/hr UNSCH PRN IV For Magnesium 1.2 - 1.6 mg/dL; Start 08/04/16 at 14:30 Potassium Phosphate 2000 mg 2,000 mg Q4H PRN PO For Phosphorus < 2.5 mg/dL; Start 08/04/16 at 14:30 Sodium Phosphate/ Sodium Chloride (Sodium Phosphate Inj/NS 250 ml Inj) 250 ml @ 42 mls/hr UNSCH PRN IV For Phosphorus < 2.5 mg/dL; Start 08/04/16 at 14:30 Potassium Phosphate 2000 mg 2,000 mg UNSCH PRN PO/TUBE SEE LABEL COMMENTS; Start 08/04/16 at 14:30 Potassium Phosphate/Sodium Chloride (Potassium Phosphate Inj/NS 250 ml Inj) 260 ml @ 42 mls/hr UNSCH PRN IV SEE LABEL COMMENTS; Start 08/04/16 at 14:30 Albuterol/ Ipratropium 1 ampule 1 ampule Q4HR NEB PRN NEB SHORTNESS OF BREATH; Start 08/04/16 at 14:30 Vancomycin HCl/ Sodium Chloride (Vancomycin Inj/ NS 250 ml Inj) 250 ml @ 250 mls/hr TEACHER HEARING IMPAIRED IV ; Start 08/04/16 at 14:45; Stop 08/07/16 at 14:44 Miscellaneous Information Patient in critical care unit? Ass... [id number] Last administered on 08/04/16 18:00; Start 08/04/16 at 18:00 Chlorhexidine Gluconate (Chlorhexidine 2% Cloth) 3 pack DAILY@04 TOPICAL Last administered on 08/06/16 04:00; Start 08/05/16 at 04:00; Stop 08/09/16 at 04:01 Chlorhexidine Gluconate (Chlorhexidine 2% Cloth) 3 pack UNSCH PRN TOPICAL HYGIENIC CARE; Start 08/04/16 at 18:00; Stop 08/09/16 at 17:48 Gadodiamide 10 ml 10 ml STK-MED ONCE IV Last administered on 08/04/16 18:26; Start 08/04/16 at 18:26; Stop 08/04/16 at 18:29; Status DC Buprenorphine HCl/ Sodium Chloride (Buprenex Inj/NS Inj) 51 ml @ 153 mls/hr Q12HR IV Last administered on 08/05/16 08:34; Start 08/04/16 at 21:00; Stop at 11:00; Status DC Buprenorphine HCl (Buprenex Inj) 0.3 mg Q12HR IV PUSH Last administered on 08/06 09:00; Start 08/05/16 at 21:00; Stop 08/06/16 at 09:20; Status DC Fosphenytoin Sodium (Cerebyx Inj) 200 mgpe ONCE ONCE IV Last administered on 10:34; Start 08/05/16 at 09:45; Stop 08/05/16 at 09:46; Status DC Enoxaparin Sodium (Lovenox Inj) 40 mg Q24H SQ Last administered on 08/05/16 13 :33; Start 08/05/16 at 13:00 Patient Medication Teaching (Coumadin Booklet) 1 STK-MED ONCE .ROUTE ; Start at 15:56; Stop 08/05/16 at 15:57; Status DC Fosphenytoin Sodium (Cerebyx Inj) 200 mgpe Q8HR IV ; Start 08/06/16 at 14:00 Buprenorphine/ Naloxone (Buprenorphine-Naloxone 8-2 Mg) 1 tab BID SL ; Start at 21:00 A/P Assessment and Plan A/P Subclinical seizures Acute encephalopathy IV drug use -initial EEG shows subclinical seizure activity. -MRI of the brain with and without contrast-no acute findings -started on Cerebyx -neurology following. Mild mitral regurgitation -2D Echo. No vegetation, mild mitral regurgitation. Cardiology Dr. Dr. Burgess following hypokalemia replaced as needed. PROPH: - Lovenox 40 daily sq. Protonix for GI prophylaxis transfer to telemetry. d/w the RN and . Abdifatah Cardoza MD Aug 06, 2016 11:45
[2016-08-06] MEDS: LORazepam 2 MG/ML VIAL IV PRN (12:20)
[2016-08-06] MEDS: ENOXAPARIN SODIUM 40 MG/0.4 ML SYRINGE SQ SCH (12:21)
[2016-08-06] MEDS ORDERED: BUPRENORPHINE/NALOXONE 8 MG/2 MG SUBLINGUAL TAB SL SCH (14:00)
[2016-08-06] MEDS ORDERED: FOSPHENYTOIN SODIUM 100 MG PE/2 ML VIAL IV SCH (14:00)
--- NOTE | 2016-08-06 15:10 | PD.CARD.PN ---
Subjective Subjective Remarks alert in nad Objective Vital Signs / I&O Vital Signs Date Time Temp Pulse Resp B/P Pulse Ox O2 Delivery O2 Flow Rate FiO2 08/06/16 10:00 50 08/06/16 08:00 98.6 53 14 138/86 100 08/06/16 06:00 62 08/06/16 04:51 98.1 48 12 102/59 96 08/06/16 04:51 48 08/06/16 02:00 51 08/06/16 00:00 98.1 60 12 114/56 96 08/06/16 00:00 60 08/05/16 22:00 53 08/05/16 20:57 98 21 08/05/16 20:00 97.6 68 20 114/68 98 08/05/16 20:00 68 08/05/16 18:00 82 08/05/16 16:00 82 08/05/16 16:00 99.1 82 20 104/67 99 I/O 08/05/16 08/05/16 08/05/16 08/06/16 08/06/16 08/06/16 07:00 15:00 23:00 07:00 15:00 23:00 Intake Total 900 ml 1350 ml 680 ml 1278 ml Output Total 650 ml 1200 ml 350 ml 300 ml Balance 250 ml 150 ml 330 ml 978 ml Intake Oral 50 ml 0 ml 0 ml IV Total 900 ml 1300 ml 680 ml 1278 ml Output Urine Total 650 ml 1200 ml 350 ml 300 ml Stool Total 0 ml 0 ml # Voids 3 1 1 # Bowel Movements 0 Physical Exam GENERAL: SKIN: Warm and dry. HEAD: Normocephalic. EYES: No scleral icterus. No injection or drainage. NECK: Supple, trachea midline. No JVD or lymphadenopathy. CARDIOVASCULAR: Regular rate and rhythm without murmurs, gallops, or rubs. RESPIRATORY: Breath sounds equal bilaterally. No accessory muscle use. GASTROINTESTINAL: Abdomen soft, non-tender, nondistended. MUSCULOSKELETAL: No cyanosis, or edema. BACK: Nontender without obvious deformity. No CVA tenderness. Laboratory Laboratory Tests Test 08/06/16 04:32 White Blood Count 6.5 TH/MM3 Red Blood Count 4.81 MIL/MM3 Hemoglobin 11.8 GM/DL Hematocrit 36.7 % Mean Corpuscular Volume 76.2 FL Mean Corpuscular Hemoglobin 24.5 PG Mean Corpuscular Hemoglobin 32.1 % Concent Red Cell Distribution Width 15.3 % Platelet Count 286 TH/MM3 Mean Platelet Volume 7.3 FL Neutrophils (%) (Auto) 58.8 % Lymphocytes (%) (Auto) 31.1 % Monocytes (%) (Auto) 6.0 % Eosinophils (%) (Auto) 3.7 % Basophils (%) (Auto) 0.4 % Neutrophils # (Auto) 3.8 TH/MM3 Lymphocytes # (Auto) 2.0 TH/MM3 Monocytes # (Auto) 0.4 TH/MM3 Eosinophils # (Auto) 0.2 TH/MM3 Basophils # (Auto) 0.0 TH/MM3 CBC Comment AUTO DIFF Differential Comment AUTO DIFF CONFIRMED Ovalocytes 1+ Sodium Level 140 MEQ/L Potassium Level 3.2 MEQ/L Chloride Level 104 MEQ/L Carbon Dioxide Level 26.8 MEQ/L Anion Gap 9 MEQ/L Blood Urea Nitrogen 7 MG/DL Creatinine 0.45 MG/DL Estimat Glomerular Filtration 166 ML/MIN Rate Random Glucose 91 MG/DL Calcium Level 8.4 MG/DL Magnesium Level 1.9 MG/DL Total Bilirubin 0.1 MG/DL Aspartate Amino Transf 14 U/L (AST/SGOT) Alanine Aminotransferase 18 U/L (ALT/SGPT) Alkaline Phosphatase 42 U/L Total Protein 6.2 GM/DL Albumin 3.1 GM/DL Phenytoin (Dilantin) Level 8.9 MCG/ML Assessment and Plan Problem List: (1) Seizures Assessment and Plan 1.) mr - mild, assymptomatic, f/u blood cultures neg at 48 hrs Misael Burgess MD Aug 06, 2016 15:10
--- NOTE | 2016-08-06 16:35 | PD.HHIRCNE ---
Patient History Record/History Review Reason for Referral: The patient is a 26 year old unknown handed female status post seizure event who has a history of IV drug use, who presented confused and disoriented on admission. Her psychiatric history is significant for bipolar disorder, anxiety , opiate abuse disorder, and IV drug abuse disorder, who experienced what was described as a generalized tonic-clonic seizure disorder. Apparently the patient was reducing her Gabapentin 200 mg tid, trying to come off of IV Dilaudid, patient has history of abusing gabapentin in the past. Her last IV drug abuse was several months ago, compliant with medications and was being seen every couple of weeks for prescriptions. Apparently she was with her mother last night or the night before last,reported nothing out of the ordinary , was feeling fine per chart. Apparently on the day of admission, 08/03, she had two witnessed seizures, one in the morning with her father and one here in the emergency department. Psychiatry has evaluated her (see chart note). An attempt to evaluate her yesterday was not possible due to apparent lethargy, although the patient was able to be aroused and appeared not to be able to maintain alertness, falling back to sleep. When she was told that her participation in the evaluation was dependent on when she would be discharged, she perked right up but then added that she could not possibly participate right now because she hadn't eaten "in days." This patient is referred for baseline neurobehavioral status examination to assess cognitive, behavioral and emotional aspects of the injury. Today, she was more compliant. Neuropsych Precautions: To be determined. Past Surgical/Medical History Past Surgery: No Major surgery in last 100 days: Unknown Hx of Neuro Prob: No Hx of Musculoskeletal Pro: No Hx of Cardiovascular Prob: No Hx of Respiratory Problem: Yes Hx Asthma: Yes (uses inhalers as needed) Hx of GI Problems: No Hx of Problems: No ?: Not Hx Last Menstrual Period: unknown Hx of Immuno Disor: No Hx of Endocrine Problems: No Hx Psychiatric Problems: No Hx of MDRO: No Hx of MRSA: No Hx of VRE: No Hx of CDIFF: No Hx of Tuberculosis: No Hx of Body/Medical Devices: No Blood Transfusion History Will receive Blood /Blood prod: Yes Hx Blood Transfusions: No Medication Active Medications Buprenorphine HCl (Buprenex Inj) 0.3 mg Q12HR IV PUSH Last administered on 09:00; Admin Dose 0.3 MG; Start 08/05/16 at 21:00; Stop 08/06/16 at 09:20; Status DC Buprenorphine/ Naloxone (Buprenorphine-Naloxone 8-2 Mg) 1 tab Q8H SL Last administered on 08/06/16 13:16; Admin Dose 1 TAB; Start 08/06/16 at 14:00 Fosphenytoin Sodium (Cerebyx Inj) 200 mgpe Q8HR IV Last administered on 13:17; Admin Dose 200 MGPE; Start 08/06/16 at 14:00 Gabapentin (Neurontin) 100 mg TID PO; Start 08/06/16 at 18:00 Mental Status Assessment Orientation: oriented to Self, oriented to Place, oriented to Time, oriented to Situation Mental Status: WFL: Thought processing, Language/Interactions, Attention, Learning/Memory, Problem-Solving, Visuospatial/Construction, Self-regulation, Other Observation The patient is alert and oriented to person, place, time and circumstances surrounding the reason for hospitalization. In terms of attention skills, the patient generally able to remain on task and remember basic and complex instructions. In terms of memory functioning, the patient was able to remember three of three words after a brief period of time. The patient initiated spontaneous conversation. Speech was characterized by adequate prosody, grammar , articulation, volume and rate. Basic naming skills were intact. Language repetition skills were intact. The patients comprehensions for basic one- and two-stage commands were intact. Basic verbal abstraction and problem-solving skills were marginally intact although it is to be remembered that this patient has a ninth grade education. The patient appears to posses limited insight and awareness into their situation and within the limits of this brief evaluation, limited judgment. Adjustment/Coping Assessment Adjustment/Coping: Severe: Anxiety, Awareness, Insight Observation The patients thought content was free from suicidal, homicidal or paranoid ideation, and the patients thought processes were logical and goal-directed. The patients mood was anxious and guarded, and her affect was worrisome. She continued to express a desire to leave, and that this situation will affect her ability to regain custody of her children, who now live with her mother. 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 LTG Status: Deferred STG Status: Deferred Team Members: Neuropsychologist Behavior Assessment Agitation: Moderate Treatment Engagement: Minimal Observation Behaviorally, the patient demonstrated signs of agitation, but not impulsivity or disinhibition. There was no remarkable evidence of a formal thought disorder or psychosis. LTG - Status: Deferred STG Status: Deferred Team Members: Neuropsychologist Diagnosis/Discharge Plan Impression The overall constellation of findings based on evaluation, clinical interview and record review appear consistent with an underlying personality disorder that serves to maintain her psychological dysfunction, as well as known polysubstance dependence. Concerning whether there is evidence of a psychogenic seizure disorder, a better understanding of the situation is that there are psychological factors that serve as a strong component in the manifestation and maintenance of her presenting symptomatology whether or not there was a neurogenic cause for her recent seizure disorder. In other words, her clinical situation is due to both psychogenic and neurogenic causes. Diagnosis: (1) Manipulative personality disorder Status: Chronic Maximizing acute care outcome Obvious complete cessation of dangerous narcotics and counseling would be beneficial to return her to a healthy state, although in reality doing so will be tantamount to a challenge. Discharge Planning Anticipated Problems Ongoing areas of concern will include behavioral impulsivity, lack of insight and judgment, which is not expected to improve with time or treatment. Treatment Plan I defer to psychiatry regarding appropriate treatment goals. I would recommend outpatient 12-step program at the very least. Thank you Thank you for the opportunity to assist in this patients care. Abelino Hughes, Ph.D., ABPP Board Certified in Clinical Neuropsychology [place] [employer] [place] Licensed Psychologist #[id number] Abelino Hughes PhD Aug 06, 2016 4:35 pm
[2016-08-06] MEDS ORDERED: GABAPENTIN 100 MG CAP PO SCH (18:00)
[2016-08-06 18:15] LABS: BATH SALTS (MDPV) UR NEG (NEG); ECSTASY (MDMA) UR NEG (NEG); HEROIN (6-ACETYLMORPHINE) UR NEG (NEG); K2 SPICE UR NEG (NEG); OBMETHADONE UR NEG (NEG); OXYCODONE (PERCODAN) NEG (NEG); PHENCYCLIDINE URINE NEG (NEG)
[2016-08-06] MEDS ORDERED: GABAPENTIN 300 MG CAP PO ONE (18:45)
[2016-08-06] MEDS ORDERED: LORazepam 2 MG/ML VIAL IV ONE (18:45)
[2016-08-07 02:04] LABS: EBV VCA IgM Negative (Negative)
--- NOTE | 2016-08-07 09:13 | MG ---
cc: REJI JOHN M.D. Lab No: [id number] Date: 08/06/2016 Age: Sex: F Race: A 2-1/2 Hz bifrontal high amplitude delta slowing is again noted. At times slightly sharply contoured. This is very similar to prior EEGs consistent with a severe diffuse encephalopathy. Occasionally these waves are minimally sharply contoured. Today, I do not see any definite sharp slow waves, no major hemisphere asymmetry is seen. IMPRESSION Not much change from prior EEGs, I do not see any definite sharp slow wave this time, however and in that sense it may be a bit improved, but still consistent with a severe diffuse encephalopathy. Clinical correlation is needed. MD BRYCE Aburto/ /10:08 PM /8:56 AM
== END 2016-08-06 18:49 | disposition left against medical advice (07) | DRG 100 ==
LOC: NEPC 07:15 → NEDA 09:56 → NEDH 13:57 → NEPHCDU 18:54 → OBSVTOIN 08-04 15:18 → HIME 08-04 16:35
PROVIDERS: ADMIT Obstetrics & Gynecology; ATTEND Obstetrics & Gynecology
DX: G40.901 Epilepsy, unspecified, not intractable, with status epilepticus (principal); G93.40 Encephalopathy, unspecified; F11.20 Opioid dependence, uncomplicated; S01.512A Laceration without foreign body of oral cavity, initial encounter; D64.9 Anemia, unspecified; E87.6 Hypokalemia; D72.829 Elevated white blood cell count, unspecified; F31.9 Bipolar disorder, unspecified; F41.9 Anxiety disorder, unspecified; F19.90 Other psychoactive substance use, unspecified, uncomplicated; F60.9 Personality disorder, unspecified; H57.04 Mydriasis; I34.0 Nonrheumatic mitral (valve) insufficiency; Z72.0 Tobacco use; Z79.899 Other long term (current) drug therapy; X58.XXXA Exposure to other specified factors, initial encounter; Y92.9 Unspecified place or not applicable
CPT/HCPCS: 70450; 70553; 71010; 80048; 80053; 80076; 80171; 80175; 80185; 80307; 82550; 82552; 82948; 83735; 84100; 84132; 84146; 84702; 85007; 85025; 85027; 86664; 86665; 86695; 86696; 87040; 87497; 87641; 93306; 95819; 96361; 96374; A9579; G0378; G0481; J0592; J0692; J1650; J2060; J2405; J3480; J7030; J7120; P9612; Q2009

== ENCOUNTER 2017-04-16 13:18 | Inpatient (IN) | payer MEDICAID, OTHER ==
[~2017-04-16] VITALS: Ht 167.6 cm; Wt 47.2 kg
[~2017-04-16 13:18] MED LIST changes: -AMBI10TA PO; +BUSP10TA PO; -CLON1 PO; -DICL50 PO; +GABA100C4 PO; -GABA300 PO; -HYDR50 PO; +LAMO150 PO; -PROM25TA5 PO; -RANI150 PO; +SUBO2MIS SL
[2017-04-16 13:29] VITALS: BP 116/64; PULSE 89; RESP 16; TEMP 98.1; O2SAT 100
--- NOTE | 2017-04-16 13:42 | PD ---
HPI Chief Complaint: overdose Time Seen by Provider: 13:26 Travel History International Travel<30 days: No Contact w/Intl Traveler<30days: No History of Present Illness HPI 27-year-old female presents to the emergency department via [facility] after seizure that occurred just prior to arrival. Patient does not talk or interact with me during the interview process. I obtained my information from [facility] crew. According to them, she was found actively seizing. No medication was administered and patient was slightly postictal after the event. She was noncooperative and noncompliant during the transport just as she is now. Patient does not appear to be in any distress. PFSH Past Medical History Asthma: Yes (uses inhalers as needed) Blood Disorders: No Cancer: No Cardiovascular Problems: No Endocrine: No Genitourinary: No Immune Disorder: No Musculoskeletal: No Neurologic: No Psychiatric: No Reproductive: No Respiratory: Yes Social History Alcohol Use: No Tobacco Use: Yes Substance Use: Yes (1 year - oxy's) Allergies-Medications (Allergen,Severity, Reaction): Coded Allergies: No Known Allergies (Unverified , 12/09/14) Reported Meds & Prescriptions Reported Meds & Active Scripts Active Reported Buspirone (Buspirone HCl) 10 Mg Tab 10 Mg PO TID Lamictal (Lamotrigine) 150 Mg Tab 150 Mg PO DAILY Gabapentin 100 Mg Cap 100 Mg PO TID Suboxone Sublingual Film (Buprenorphine-Naloxone Sublingual Film) 2-0.5 Mg Film 1 Film SL Unique ID number required: Review of Systems ROS Limitations: Uncooperative Except as stated in HPI: all other systems reviewed are Neg Physical Exam Narrative GENERAL: Well-developed thin SKIN: Focused skin assessment warm/dry. Multiple areas of recent injection points along the arms and hands. HEAD: Atraumatic. Normocephalic. EYES: Pupils equal and round. No scleral icterus. No injection or drainage. ENT: No nasal bleeding or discharge. Patient has dried blood on her face. Unable to assess the oral cavity is patient refuses to open her mouth. NECK: Trachea midline. No JVD. No lymphadenopathy CARDIOVASCULAR: Regular rate and rhythm. No murmur appreciated. RESPIRATORY: No accessory muscle use. Clear to auscultation. Breath sounds equal bilaterally. GASTROINTESTINAL: Abdomen soft, non-tender, nondistended. Hepatic and splenic margins not palpable. MUSCULOSKELETAL: No obvious deformities. No clubbing. No cyanosis. No edema. NEUROLOGICAL: Awake and alert. No obvious cranial nerve deficits. Motor grossly within normal limits. Normal speech. PSYCHIATRIC: Appropriate mood and affect; insight and judgment normal. Data Data Last Documented VS Vital Signs Date Time Temp Pulse Resp B/P (MAP) Pulse Ox O2 Delivery O2 Flow Rate FiO2 04/16/17 14:30 97.8 81 16 118/77 (91) 100 Room Air Orders Orders Complete Blood Count With Diff (04/16/17 13:42) Comprehensive Metabolic Panel (04/16/17 13:42) Urinalysis - C+S If Indicated (04/16/17 13:42) Iv Access Insert/Monitor (04/16/17 13:42) Ecg Monitoring (04/16/17 13:42) Oximetry (04/16/17 13:42) Sodium Chloride 0.9% Flush (Ns Flush) (04/16/17 13:45) Drug Screen, Random Urine (04/16/17 13:42) Ed Urine Pregnancytest Poc (04/16/17 14:02) Hiv Antibody Screen (04/16/17 16:27) Hepatitis B Surface Ag (04/16/17 16:27) Hepatitis C Ab,Igg (04/16/17 16:27) Ct Brain W/O Iv Contrast(Rout) (04/16/17 ) Ct Facial Bones W/O Iv Cont (04/16/17 ) Admit Order (Ed Use Only) (04/16/17 16:44) Consult Neurology (04/16/17 ) Consult Gynecology (04/16/17 ) Labs Laboratory Tests Test 04/16/17 14:00 White Blood Count 8.1 TH/MM3 Red Blood Count 4.62 MIL/MM3 Hemoglobin 11.6 GM/DL Hematocrit 34.6 % Mean Corpuscular Volume 74.9 FL Mean Corpuscular Hemoglobin 25.1 PG Mean Corpuscular Hemoglobin Concent 33.5 % Red Cell Distribution Width 16.1 % Platelet Count 319 TH/MM3 Mean Platelet Volume 7.4 FL Neutrophils (%) (Auto) 88.2 % Lymphocytes (%) (Auto) 9.2 % Monocytes (%) (Auto) 2.3 % Eosinophils (%) (Auto) 0.0 % Basophils (%) (Auto) 0.3 % Neutrophils # (Auto) 7.2 TH/MM3 Lymphocytes # (Auto) 0.7 TH/MM3 Monocytes # (Auto) 0.2 TH/MM3 Eosinophils # (Auto) 0.0 TH/MM3 Basophils # (Auto) 0.0 TH/MM3 CBC Comment DIFF FINAL Differential Comment Urine Color YELLOW Urine Turbidity HAZY Urine pH 6.0 Urine Specific [place] 1.021 Urine Protein TRACE mg/dL Urine Glucose (UA) NEG mg/dL Urine Ketones 10 mg/dL Urine Occult Blood NEG Urine Nitrite NEG Urine Bilirubin NEG Urine Urobilinogen LESS THAN 2.0 MG/DL Urine Leukocyte Esterase NEG Urine RBC 1 /hpf Urine WBC 1 /hpf Urine Squamous Epithelial Cells 1 /hpf Urine Amorphous Sediment RARE Urine Mucus FEW /lpf Microscopic Urinalysis Comment CULT NOT INDICATED Blood Urea Nitrogen 13 MG/DL Creatinine 0.81 MG/DL Random Glucose 117 MG/DL Total Protein 7.4 GM/DL Albumin 4.1 GM/DL Calcium Level 8.9 MG/DL Alkaline Phosphatase 76 U/L Aspartate Amino Transf (AST/SGOT) 51 U/L Alanine Aminotransferase (ALT/SGPT) 66 U/L Total Bilirubin 0.3 MG/DL Sodium Level 139 MEQ/L Potassium Level 3.5 MEQ/L Chloride Level 105 MEQ/L Carbon Dioxide Level 25.9 MEQ/L Anion Gap 8 MEQ/L Estimat Glomerular Filtration Rate 84 ML/MIN Total Creatine Kinase 415 U/L Creatine Kinase MB 8.6 NG/ML Creatine Kinase MB % 2.1 % Urine Opiates Screen NEG Urine Barbiturates Screen NEG Urine Amphetamines Screen POS Urine Benzodiazepines Screen NEG Urine Cocaine Screen NEG Urine Cannabinoids Screen NEG [facility] Medical Decision Making Medical Screen Exam Complete: Yes Emergency Medical Condition: Yes Differential Diagnosis Heroin overdose, adverse drug reaction, delirium, polysubstance abuse. Narrative Course 27-year-old female presents to the emergency department via [facility] after seizure that occurred just prior to arrival. Patient does not talk or interact with me during the interview process. I obtained my information from [facility] crew. According to them, she was found actively seizing. No medication was administered and patient was slightly postictal after the event. She was noncooperative and noncompliant during the transport just as she is now. Patient does not appear to be in any distress. Vital signs stable Labs stable- UDS positive for amphetamine use. Dr. London called about this patient. She was following this patient previously and is concerned that she does have a seizure disorder. Patient has been unable to follow up with a neurologist for multiple reasons. She believes that she needs an EEG to rule out seizure disorder as this patient has had multiple episodes. I spoke with Dr. Post, my attending, about this patient and she recommended patient be on Obs for altered mental status and consider partial seizure disorder. Neurology will be consulted. During the patient's stay in the emergency department there was concern of exposure of the special police officer and [employer] crew. Please see her documentation regarding this. Diagnosis Primary Impression: Seizures Admitting Information Admitting Physician Requests: Observation Condition: Stable Tosha Weir Apr 16, 2017 13:42
[2017-04-16] MEDS ORDERED: SODIUM CHLORIDE 0.9% FLUSH 10 ML FLUSH IVF PRN (13:45)
[2017-04-16 13:47] VITALS: RESP 16; O2SAT 100
[2017-04-16 14:12] LABS: AUTOMATED NEUTROPHIL # 7.2 TH/MM3 (1.8-7.7); BASOPHIL % 0.3 % (0.0-2.0); HEMATOCRIT 34.6 % (35.0-46.0); HEMO FLAGS DIFF FINAL; LYMPH % 9.2 % (9.0-44.0); LYMPHOCYTE # 0.7 TH/MM3 (1.0-4.8); MEAN CELL VOLUME 74.9 FL (80.0-100.0); MEAN CORPUSCULAR HEMOGLOBIN 25.1 PG (27.0-34.0); MEAN CORPUSCULAR HGB CONC 33.5 % (32.0-36.0); MONO % 2.3 % (0.0-8.0); NEUT % 88.2 % (16.0-70.0); PLATELET COUNT 319 TH/MM3 (150-450); RED BLOOD COUNT 4.62 MIL/MM3 (4.00-5.30); RED CELL DISTRIBUTION WIDTH 16.1 % (11.6-17.2); WHITE BLOOD COUNT 8.1 TH/MM3 (4.0-11.0)
[2017-04-16 14:13] LABS: BLOOD, URINE NEG (NEG); COMMENT (UR) CULT NOT INDICATED; CULTURE IF INDICATED CULT NOT INDICATED; GLUCOSE,URINE NEG (NEG); KETONE, URINE 10 mg/dL (NEG); MUCUS URINE FEW /lpf (OCC); NITRITE,URINE NEG (NEG); SQUAMOUS EPITHELIAL CELL URINE 1 /hpf (0-5); URINE COLOR YELLOW (YELLW/STRAW)
[2017-04-16 14:30] VITALS: BP 118/77; PULSE 81; RESP 16; TEMP 97.8; O2SAT 100
[2017-04-16 14:51] LABS: ALKALINE PHOSPHATASE 76 U/L (45-117); ALT (GPT) 66 U/L (10-53); TOTAL BILIRUBIN ADULT 0.3 MG/DL (0.2-1.0)
[2017-04-16 14:53] LABS: ANION GAP 8 MEQ/L (5-15); AST (GOT) 51 U/L (15-37); BICARBONATE 25.9 MEQ/L (21.0-32.0); BLOOD UREA NITROGEN 13 MG/DL (7-18); CHLORIDE 105 MEQ/L (98-107); GLOMERULAR FILTRATION RATE 84 ML/MIN (>89); POTASSIUM 3.5 MEQ/L (3.5-5.1); SODIUM (NA) 139 MEQ/L (136-145)
[2017-04-16] MEDS ORDERED: BISACODYL 10 MG SUPP RECTAL PRN (17:00)
[2017-04-16] MEDS ORDERED: SODIUM CHLORIDE 0.9% FLUSH 10 ML FLUSH IV FLUSH PRN (17:00)
[2017-04-16] MEDS ORDERED: MAGNESIUM HYDROXIDE SUSP 30 ML CUP PO PRN (17:00)
[2017-04-16] MEDS ORDERED: NALOXONE HCL 0.4 MG/ML AMP IV PUSH PRN (17:00)
[2017-04-16] MEDS ORDERED: SENNOSIDES 8.6 MG TAB PO PRN (17:00)
[2017-04-16] MEDS ORDERED: LACTULOSE SYRUP 20 GM/30 ML CUP PO PRN (17:00)
[2017-04-16 17:38] VITALS: BP 113/76; TEMP 97.8
[2017-04-16] MEDS: SODIUM CHLOR 0.9% 1000 ML INJ 1,000 ML IV SCH (17:38)
--- NOTE | 2017-04-16 18:22 | RADRPT ---
EXAM DATE/TIME: 04/16/2017 18:05 [facility] COMPARISON: CT BRAIN W/O CONTRAST, August 03, 2016, 8:14. INDICATIONS : Unresponsive; possible overdose and seizure. RADIATION DOSE: 45.79 CTDIvol (mGy) MEDICAL HISTORY : Non-responsive. SURGICAL HISTORY : Non-responsive. ENCOUNTER: Initial ACUITY: 1 day PAIN SCALE: Non-responsive LOCATION: cranial TECHNIQUE: Multiple contiguous axial images were obtained of the head. Using automated exposure control and adj ustment of the mA and/or kV according to patient size, radiation dose was kept as low as reasonably a chievable to obtain optimal diagnostic quality images. DICOM format image data is available electro nically for review and comparison. FINDINGS: CEREBRUM: The ventricles are normal for age. No evidence of midline shift, mass lesion, hemorrhage or acute in farction. No extra-axial fluid collections are seen. POSTERIOR FOSSA: The cerebellum and brainstem are intact. The 4th ventricle is midline. The cerebellopontine angle i s unremarkable. EXTRACRANIAL: The visualized portion of the orbits is intact. SKULL: The calvaria is intact. No evidence of skull fracture. CONCLUSION: No acute disease. David Vizcarra MD on April 16, 2017 at 18:20 Board Certified Radiologist. This report was verified electronically.
--- NOTE | 2017-04-16 18:28 | RADRPT ---
EXAM DATE/TIME: 04/16/2017 18:07 [facility] COMPARISON: No previous studies available for comparison. INDICATIONS : Unresponsive; possible overdose and seizure. RADIATION DOSE: 36.69 CTDIvol (mGy) MEDICAL HISTORY : Non-responsive. SURGICAL HISTORY : Non-responsive. ENCOUNTER: Initial ACUITY: 1 day PAIN SCORE: Non-responsive LOCATION: facial TECHNIQUE: Volumetric scanning of the facial bones was performed. Using automated exposure control and adjustme nt of the mA and/or kV according to patient size, radiation dose was kept as low as reasonably achiev able to obtain optimal diagnostic quality images. DICOM format image data is available electronicHistoRx y for review and comparison. FINDINGS: ORBITS: The orbital and infraorbital osseous structures are intact. The retroconal structures have a normal configuration. No radiopaque foreign bodies are seen. NASAL BONE: There is an acute fracture involving the right nasal bone. ZYGOMATIC ARCHES: Symmetric without evidence of fracture. SINUSES: The maxillary, ethmoid and frontal sinuses are intact. No air-fluid levels seen. NASAL CAVITY: The nasal septum is intact and midline. The lacrimal ducts are intact. Right-sided marco bullosa is noted. SOFT TISSUES: No radiopaque foreign bodies seen. No soft-tissue swelling is seen. INTRACRANIAL: No intracranial air seen. CRIBIFORM PLATE: Grossly intact. CONCLUSION: Acute fracture involving the right nasal bone. David Vizcarra MD on April 16, 2017 at 18:25 Board Certified Radiologist. This report was verified electronically.
--- NOTE | 2017-04-16 18:46 | PD.CONS ---
HPI Chief Complaint gran mal seizures with history of poysubstance use Date Seen: Apr 16, 2017 Travel History International Travel<30 Days: No Contact w/Intl Traveler<30Days: No Known Affected Area: No History of Present Illness HPI 27 yo swf P2 well known to me for DESTINY treatment during and after . Actually dismissed from practice for non compliance, but I am willing to see and help with efforts for residential treatment. History of opioid, amphetamine and gapapentin use. Has been off and on subutex and suboxone in my practice with help from [employer] and other service organizations. Has done 12 step programs and lost track of sponsors. Recently regained custody of her children. Recently reached out to me and asked to return to practice for MAT, which was denied. Found non responsive by police in her home after 911 call from her 4 year old daughter. I was called by her recovery network. Discussion with Dr. Post and Tosha indicated significant intoxication and that she was found by paramedics having a gran mal seizure. UDS at hospital suggests only amphetamines. No evidence of infection. I have not yet seen Pamella, but I do believe she has a significant seizure disorder, independent of her DESTINY and I was treating her with gabapentin and lamictal. Attempts to get eEG and outpatient neurologic evaluations, which I ordered several times, were thwarted by her lack of insurance. In her defense, she tried hard to get these appointments and her EEG in the past. I would like to see her get an EEG during this observation visit and see a neurologist who will follow up on an out patient basis. I will come in tomorrow morning to discuss mood stablization and MAT. Allergies-Medications (Allergen,Severity, Reaction): Coded Allergies: No Known Allergies (Unverified , 12/09/14) Home Meds Reported Medications Buspirone (Buspirone) 10 Mg Tab, 10 MG PO TID for Anxiety, TAB 0 Refills 08/03/16 Lamotrigine (Lamictal) 150 Mg Tab, 150 MG PO DAILY for Control Seizures, #60 TAB 0 Refills 08/03/16 Gabapentin (Gabapentin) 100 Mg Cap, 100 MG PO TID, #90 CAP 0 Refills 08/03/16 Buprenorphine-Naloxone Sublingual Film (Suboxone Sublingual Film) 2-0.5 Mg Film , 1 FILM SL, FILM Unique ID number required: 08/03/16 Physical Exam Vital Signs Date Time Temp Pulse Resp B/P (MAP) Pulse Ox O2 Delivery O2 Flow Rate FiO2 04/16/17 17:38 97.8 96 16 113/76 (88) 99 04/16/17 14:30 97.8 81 16 118/77 (91) 100 Room Air 04/16/17 13:47 16 100 Room Air 04/16/17 13:30 89 16 100 Room Air 04/16/17 13:29 98.1 89 16 116/64 (81) 100 Narrative GENERAL: Well-nourished, well-developed patient. SKIN: Warm and dry. HEAD: Normocephalic and atraumatic. EYES: No scleral icterus. No injection or drainage. ENT: No nasal drainage noted. Mucous membranes pink. Airway patent. NECK: Supple, trachea midline. No JVD. CARDIOVASCULAR: Regular rate and rhythm without murmurs, gallops, or rubs. RESPIRATORY: Breath sounds equal bilaterally. No accessory muscle use. BREASTS: Bilateral exam showed no masses , no retractions, no nipple discharge. ABDOMEN/GI: Abdomen soft, non-tender, bowel sounds present, no rebound, no guarding Gravid to [-] weeks size Fundal Height: [-] GENITOURINARY: External Genitalia: intact and normal in appearance BUS glands: [-] Cervix: [-] Dilatation: [-] Effacement: [-] Station: [-] Presentation: [-] Membranes: [intact or ruptured] Uterine Contractions: [-] FHT's: Category: [-] Baseline: [-] Reactive: [-] Variability: [-] Decels: [-] EXTREMITIES: No cyanosis or edema. BACK: Nontender without obvious deformity. No CVA tenderness. NEUROLOGICAL: Awake and alert. Motor and sensory grossly within normal limits. Five out of 5 muscle strength in all muscle groups. Normal speech. Data Data Orders Orders Complete Blood Count With Diff (04/16/17 13:42) Comprehensive Metabolic Panel (04/16/17 13:42) Urinalysis - C+S If Indicated (04/16/17 13:42) Iv Access Insert/Monitor (04/16/17 13:42) Ecg Monitoring (04/16/17 13:42) Oximetry (04/16/17 13:42) Sodium Chloride 0.9% Flush (Ns Flush) (04/16/17 13:45) Drug Screen, Random Urine (04/16/17 13:42) Ed Urine Pregnancytest Poc (04/16/17 14:02) Hiv Antibody Screen (04/16/17 16:27) Hepatitis B Surface Ag (04/16/17 16:27) Hepatitis C Ab,Igg (04/16/17 16:27) Ct Brain W/O Iv Contrast(Rout) (04/16/17 ) Ct Facial Bones W/O Iv Cont (04/16/17 ) Admit Order (Ed Use Only) (04/16/17 16:44) Consult Neurology (04/16/17 ) Consult Gynecology (04/16/17 ) Place In Observation (04/16/17 ) Vital Signs (Adult) Q4H (04/16/17 16:50) Activity Oob With Assistance (04/16/17 16:50) Intake + Output BARBIE.QSHIFT (04/16/17 16:50) Sodium Chlor 0.9% 1000 Ml Inj (Ns 1000 M (04/16/17 16:50) Sodium Chloride 0.9% Flush (Ns Flush) (04/16/17 17:00) Sodium Chloride 0.9% Flush (Ns Flush) (04/16/17 21:00) Comprehensive Metabolic Panel (04/17/17 06:00) Complete Blood Count With Diff (04/17/17 06:00) Case Management Consult (04/16/17 16:50) Scd Bilateral/Knee High BARBIE.BID (04/16/17 16:50) Naloxone Inj (Narcan Inj) (04/16/17 17:00) Magnesium Hydroxide Liq (Milk Of Magnesi (04/16/17 17:00) Sennosides (Senokot) (04/16/17 17:00) Bisacodyl Supp (Dulcolax Supp) (04/16/17 17:00) Lactulose Liq (Lactulose Liq) (04/16/17 17:00) Eeg Study (04/16/17 ) ^ Seizure Precautions (04/16/17 16:52) Creatine Kinase (Cpk) (04/16/17 16:53) ^ Other Nursing Orders (04/16/17 16:54) (Hub Use Only)Inp Phy Cons/Ref (04/16/17 ) (Hub Use Only)Inp Phy Cons/Ref (04/16/17 ) Labs Laboratory Tests Test 04/16/17 14:00 04/16/17 17:56 White Blood Count 8.1 Red Blood Count 4.62 Hemoglobin 11.6 Hematocrit 34.6 Mean Corpuscular Volume 74.9 Mean Corpuscular Hemoglobin 25.1 Mean Corpuscular Hemoglobin Concent 33.5 Red Cell Distribution Width 16.1 Platelet Count 319 Mean Platelet Volume 7.4 Neutrophils (%) (Auto) 88.2 Lymphocytes (%) (Auto) 9.2 Monocytes (%) (Auto) 2.3 Eosinophils (%) (Auto) 0.0 Basophils (%) (Auto) 0.3 Neutrophils # (Auto) 7.2 Lymphocytes # (Auto) 0.7 Monocytes # (Auto) 0.2 Eosinophils # (Auto) 0.0 Basophils # (Auto) 0.0 CBC Comment DIFF FINAL Differential Comment Urine Color YELLOW Urine Turbidity HAZY Urine pH 6.0 Urine Specific [place] 1.021 Urine Protein TRACE Urine Glucose (UA) NEG Urine Ketones 10 Urine Occult Blood NEG Urine Nitrite NEG Urine Bilirubin NEG Urine Urobilinogen LESS THAN 2.0 Urine Leukocyte Esterase NEG Urine RBC 1 Urine WBC 1 Urine Squamous Epithelial Cells 1 Urine Amorphous Sediment RARE Urine Mucus FEW Microscopic Urinalysis Comment CULT NOT INDICATED Blood Urea Nitrogen 13 Creatinine 0.81 Random Glucose 117 Total Protein 7.4 Albumin 4.1 Calcium Level 8.9 Alkaline Phosphatase 76 Aspartate Amino Transf (AST/SGOT) 51 Alanine Aminotransferase (ALT/SGPT) 66 Total Bilirubin 0.3 Sodium Level 139 Potassium Level 3.5 Chloride Level 105 Carbon Dioxide Level 25.9 Anion Gap 8 Estimat Glomerular Filtration Rate 84 Urine Opiates Screen NEG Urine Barbiturates Screen NEG Urine Amphetamines Screen POS Urine Benzodiazepines Screen NEG Urine Cocaine Screen NEG Urine Cannabinoids Screen NEG MDM Admitting diagnosis: Seizure disorder vs OD Condition: Stable Tiarra London MD Apr 16, 2017 18:46
[2017-04-16 19:10] VITALS: BP 107/67; PULSE 87; RESP 18; O2SAT 95
--- NOTE | 2017-04-16 19:29 | PD ---
Data Data Last Documented VS Vital Signs Date Time Temp Pulse Resp B/P (MAP) Pulse Ox O2 Delivery O2 Flow Rate FiO2 04/16/17 14:30 97.8 81 16 118/77 (91) 100 Room Air Orders Orders Complete Blood Count With Diff (04/16/17 13:42) Comprehensive Metabolic Panel (04/16/17 13:42) Urinalysis - C+S If Indicated (04/16/17 13:42) Iv Access Insert/Monitor (04/16/17 13:42) Ecg Monitoring (04/16/17 13:42) Oximetry (04/16/17 13:42) Sodium Chloride 0.9% Flush (Ns Flush) (04/16/17 13:45) Drug Screen, Random Urine (04/16/17 13:42) Ed Urine Pregnancytest Poc (04/16/17 14:02) Hiv Antibody Screen (04/16/17 16:27) Hepatitis B Surface Ag (04/16/17 16:27) Hepatitis C Ab,Igg (04/16/17 16:27) Ct Brain W/O Iv Contrast(Rout) (04/16/17 ) Ct Facial Bones W/O Iv Cont (04/16/17 ) Admit Order (Ed Use Only) (04/16/17 16:44) Consult Neurology (04/16/17 ) Consult Gynecology (04/16/17 ) Labs Laboratory Tests Test 04/16/17 14:00 White Blood Count 8.1 TH/MM3 Red Blood Count 4.62 MIL/MM3 Hemoglobin 11.6 GM/DL Hematocrit 34.6 % Mean Corpuscular Volume 74.9 FL Mean Corpuscular Hemoglobin 25.1 PG Mean Corpuscular Hemoglobin Concent 33.5 % Red Cell Distribution Width 16.1 % Platelet Count 319 TH/MM3 Mean Platelet Volume 7.4 FL Neutrophils (%) (Auto) 88.2 % Lymphocytes (%) (Auto) 9.2 % Monocytes (%) (Auto) 2.3 % Eosinophils (%) (Auto) 0.0 % Basophils (%) (Auto) 0.3 % Neutrophils # (Auto) 7.2 TH/MM3 Lymphocytes # (Auto) 0.7 TH/MM3 Monocytes # (Auto) 0.2 TH/MM3 Eosinophils # (Auto) 0.0 TH/MM3 Basophils # (Auto) 0.0 TH/MM3 CBC Comment DIFF FINAL Differential Comment Urine Color YELLOW Urine Turbidity HAZY Urine pH 6.0 Urine Specific [place] 1.021 Urine Protein TRACE mg/dL Urine Glucose (UA) NEG mg/dL Urine Ketones 10 mg/dL Urine Occult Blood NEG Urine Nitrite NEG Urine Bilirubin NEG Urine Urobilinogen LESS THAN 2.0 MG/DL Urine Leukocyte Esterase NEG Urine RBC 1 /hpf Urine WBC 1 /hpf Urine Squamous Epithelial Cells 1 /hpf Urine Amorphous Sediment RARE Urine Mucus FEW /lpf Microscopic Urinalysis Comment CULT NOT INDICATED Blood Urea Nitrogen 13 MG/DL Creatinine 0.81 MG/DL Random Glucose 117 MG/DL Total Protein 7.4 GM/DL Albumin 4.1 GM/DL Calcium Level 8.9 MG/DL Alkaline Phosphatase 76 U/L Aspartate Amino Transf (AST/SGOT) 51 U/L Alanine Aminotransferase (ALT/SGPT) 66 U/L Total Bilirubin 0.3 MG/DL Sodium Level 139 MEQ/L Potassium Level 3.5 MEQ/L Chloride Level 105 MEQ/L Carbon Dioxide Level 25.9 MEQ/L Anion Gap 8 MEQ/L Estimat Glomerular Filtration Rate 84 ML/MIN Urine Opiates Screen NEG Urine Barbiturates Screen NEG Urine Amphetamines Screen POS Urine Benzodiazepines Screen NEG Urine Cocaine Screen NEG Urine Cannabinoids Screen NEG MDM Supervised Visit with JO: Yes Narrative Course The history, exam, and medical decision-making in the associated midlevel provider note were completed with my assistance. I reviewed and agree with the findings presented. I attest that I had a [id number] encounter with the patient on the same day, and personally performed and documented my assessment and findings in the medical record. *My assessment and Findings: This is a 27-year-old female who presents to the emergency department with altered mental status. She reportedly had activity that looked like a seizure with EMS. Here in the emergency department she is altered. She does track with her eyes and at some points tries to get out of bed. She has dilated pupils. She does intermittently have some tremor in her hand that I appreciate on her exam concerning for intermittent partial seizures. CT of the face demonstrates a nasal bone fracture. Her father says the neighbor reported that she may have used methamphetamines which is consistent with her drug screen. It's unclear if this is her primary seizure disorder for sepsis related to substances. Patient will be placed in observation for neurology evaluation, EEG and altered mental status workup. Physician Communication Physician Communication Discussed with Dr. Trinidad Diagnosis Primary Impression: Seizures Admitting Information Admitting Physician Requests: Observation Condition: Stable Natalia Post MD Apr 16, 2017 19:29
[2017-04-16 19:55] LABS: CKMB 8.6 NG/ML (0.5-3.6)
[2017-04-16] MEDS: SODIUM CHLORIDE 0.9% FLUSH 10 ML FLUSH IV FLUSH SCH (20:28)
[2017-04-16 21:28] VITALS: BP 120/69; PULSE 83; RESP 18; TEMP 97.6; O2SAT 100
--- NOTE | 2017-04-16 22:51 | HHI.HP ---
[facility] No Primary Care Physician Admission Diagnosis Seizure disorder vs OD Diagnoses: Chief Complaint: patient nonverbal. Travel History International Travel<30 Days: No Contact w/Intl Traveler <30 Da: No Traveled to Known Affected Are: No History of Present Illness 27-year-old female with history of IV drug use, history of seizure disorder who was found unresponsive by her 4-year-old child, who called 911. Patient indicates that she can talk nodding, however refuses to talk, as indicated by shaking her head. History is obtained from discussion with ER, as well as chart review. Review of Systems patient unable to answer. Past Family Social History Past Medical History Seizure disorder History of IV drug use Past Surgical History No surgical history Reported Medications Reported Meds & Active Scripts Active Reported Buspirone (Buspirone HCl) 10 Mg Tab 10 Mg PO TID Lamictal (Lamotrigine) 150 Mg Tab 150 Mg PO DAILY Gabapentin 100 Mg Cap 100 Mg PO TID Suboxone Sublingual Film (Buprenorphine-Naloxone Sublingual Film) 2-0.5 Mg Film 1 Film SL Unique ID number required: Allergies: Coded Allergies: No Known Allergies (Unverified , 12/09/14) Family History Patient unable to answer family history. Social History No reported history of tobacco use. No history of alcohol use. History of IV drug abuse. Physical Exam Vital Signs Vital Signs Date Time Temp Pulse Resp B/P (MAP) Pulse Ox O2 Delivery O2 Flow Rate FiO2 04/16/17 21:28 97.6 83 18 120/69 (86) 100 04/16/17 19:10 87 18 107/67 (80) 95 04/16/17 17:38 97.8 96 16 113/76 (88) 99 04/16/17 14:30 97.8 81 16 118/77 (91) 100 Room Air 04/16/17 13:47 16 100 Room Air 04/16/17 13:30 89 16 100 Room Air 04/16/17 13:29 98.1 89 16 116/64 (81) 100 Physical Exam GENERAL: This is a thin female, in no apparent distress. SKIN: patient has various abrasions over bilateral fists, no deep wounds or signs of infection. HEAD: Normocephalic. No temporal or scalp tenderness. EYES: Pupils equal round and reactive. Extraocular motions intact. No scleral icterus. No injection or drainage. ENT: Nose without bleeding, purulent drainage or septal hematoma. Throat without erythema, tonsillar hypertrophy or exudate. Uvula midline. Airway patent. NECK: Trachea midline. No JVD or lymphadenopathy. Supple, nontender, no meningeal signs. CARDIOVASCULAR: Regular rate and rhythm without murmurs, gallops, or rubs. RESPIRATORY: Clear to auscultation. Breath sounds equal bilaterally. No wheezes , rales, or rhonchi. GASTROINTESTINAL: Abdomen soft, non-tender, nondistended. No hepato-splenomegaly , or palpable masses. No guarding. MUSCULOSKELETAL: Extremities without clubbing, cyanosis, or edema. No joint tenderness, effusion, or edema noted. No calf tenderness. Negative Homans sign bilaterally. NEUROLOGICAL: Awake and alert. Cranial nerves II through XII intact. Motor and sensory grossly within normal limits. patient moves all extremities spontaneously.patient does not speak. Laboratory Laboratory Tests Test 04/16/17 14:00 04/16/17 17:56 White Blood Count 8.1 Red Blood Count 4.62 Hemoglobin 11.6 Hematocrit 34.6 Mean Corpuscular Volume 74.9 Mean Corpuscular Hemoglobin 25.1 Mean Corpuscular Hemoglobin Concent 33.5 Red Cell Distribution Width 16.1 Platelet Count 319 Mean Platelet Volume 7.4 Neutrophils (%) (Auto) 88.2 Lymphocytes (%) (Auto) 9.2 Monocytes (%) (Auto) 2.3 Eosinophils (%) (Auto) 0.0 Basophils (%) (Auto) 0.3 Neutrophils # (Auto) 7.2 Lymphocytes # (Auto) 0.7 Monocytes # (Auto) 0.2 Eosinophils # (Auto) 0.0 Basophils # (Auto) 0.0 CBC Comment DIFF FINAL Differential Comment Urine Color YELLOW Urine Turbidity HAZY Urine pH 6.0 Urine Specific [place] 1.021 Urine Protein TRACE Urine Glucose (UA) NEG Urine Ketones 10 Urine Occult Blood NEG Urine Nitrite NEG Urine Bilirubin NEG Urine Urobilinogen LESS THAN 2.0 Urine Leukocyte Esterase NEG Urine RBC 1 Urine WBC 1 Urine Squamous Epithelial Cells 1 Urine Amorphous Sediment RARE Urine Mucus FEW Microscopic Urinalysis Comment CULT NOT INDICATED Blood Urea Nitrogen 13 Creatinine 0.81 Random Glucose 117 Total Protein 7.4 Albumin 4.1 Calcium Level 8.9 Alkaline Phosphatase 76 Aspartate Amino Transf (AST/SGOT) 51 Alanine Aminotransferase (ALT/SGPT) 66 Total Bilirubin 0.3 Sodium Level 139 Potassium Level 3.5 Chloride Level 105 Carbon Dioxide Level 25.9 Anion Gap 8 Estimat Glomerular Filtration Rate 84 Total Creatine Kinase 415 Creatine Kinase MB 8.6 Creatine Kinase MB % 2.1 Urine Opiates Screen NEG Urine Barbiturates Screen NEG Urine Amphetamines Screen POS Urine Benzodiazepines Screen NEG Urine Cocaine Screen NEG Urine Cannabinoids Screen NEG HIV (1&2) Antibody NEGATIVE Result Diagram: 04/16/17 1400 04/16/17 1400 Vesta VTE Risk Assessment Vesta VTE Risk Assessment: No/Low Risk (score <= 1) Brandonrini Risk Assessment Model Point Value = 1 Point Value = 2 Point Value = 3 Point Value = 5 Age 41-60 Minor surgery BMI > 25 kg/m2 Swollen legs Varicose veins or History of unexplained or recurrent spontaneous Oral contraceptives or hormone replacement Sepsis (< 1 month) Serious lung disease, including pneumonia (< 1 month) Abnormal pulmonary function Acute myocardial infarction Congestive heart failure (< 1 month) History of inflammatory bowel disease Medical patient at bed rest Age 61-74 Arthroscopic surgery Major open surgery (> 45 min) Laparoscopic surgery (> 45 min) Malignancy Confined to bed (> 72 hours) Immobilizing plaster cast Central venous access Age >= 75 History of VTE Family history of VTE Factor V Leiden Prothrombin [id number] Lupus anticoagulant Anticardiolipin antibodies Elevated serum homocysteine Heparin-induced thrombocytopenia Other congenital or acquired thrombophilia Stroke (< 1 month) Elective arthroplasty Hip, pelvis, or leg fracture Acute spinal cord injury (< 1 month) Prophylaxis Regimen Total Risk Factor Score Risk Level Prophylaxis Regimen 0-1 Low Early ambulation 2 Moderate Order ONE of the following: *Sequential Compression Device (SCD) *Heparin 5000 units SQ BID 3-4 Higher Order ONE of the following medications: *Heparin 5000 units SQ TID *Enoxaparin/Lovenox 40 mg SQ daily (WT < 150 kg, CrCl > 30 mL/min) *Enoxaparin/Lovenox 30 mg SQ daily (WT < 150 kg, CrCl > 10-29 mL/min) *Enoxaparin/Lovenox 30 mg SQ BID (WT < 150 kg, CrCl > 30 mL/min) AND/OR *Sequential Compression Device (SCD) 5 or more Highest Order ONE of the following medications: *Heparin 5000 units SQ TID (Preferred with Epidurals) *Enoxaparin/Lovenox 40 mg SQ daily (WT < 150 kg, CrCl > 30 mL/min) *Enoxaparin/Lovenox 30 mg SQ daily (WT < 150 kg, CrCl > 10-29 mL/min) *Enoxaparin/Lovenox 30 mg SQ BID (WT < 150 kg, CrCl > 30 mL/min) AND *Sequential Compression Device (SCD) Assessment and Plan Assessment and Plan //Seizure disorder. //Altered mental status -Patient with tremors, however no tonic-clonic seizures. -No past EEG evidence of seizures. Amphetamines positive on drug screen. CT head unremarkable, apart from nasal bone fracture. -Seizure precautions -Consult neurology. EEG ordered and pending. //Opioid dependence. Patient on Suboxone. Does not appear to be undergoing acute withdrawal at this time. Await confirmation of home medication list. -Patient would benefit from referral for patient. //Transaminitis. Mild. Likely secondary to elevation in CK. Liver ultrasound ordered. Hepatitis profile ordered in ER. //Mild elevation in CK. Likely secondary to being found down. IV fluids. //Nasal bone fracture. -Lax facial CT with nasal bone fracture. Will refer patient to ENT as outpatient. Discussed Condition With patient, nurse, ED physician. Marlo Trinidad MD Apr 16, 2017 22:51
[2017-04-16] MEDS ORDERED: LORazepam 2 MG/ML VIAL IV PUSH PRN (23:15)
[2017-04-17] VITALS (7 sets, daily range): BP systolic 103–131; BP diastolic 56–74; PULSE 69–88; RESP 16–18; TEMP 97.5–98.8; O2SAT 97–100
[2017-04-17] MEDS: SODIUM CHLOR 0.9% 1000 ML INJ 1,000 ML IV SCH ×3 (04:22→21:26)
[2017-04-17 06:08] LABS: AUTOMATED NEUTROPHIL # 4.6 TH/MM3 (1.8-7.7); BASOPHIL % 0.2 % (0.0-2.0); EOSINOPHIL % 0.2 % (0.0-4.0); HEMATOCRIT 34.6 % (35.0-46.0); HEMO FLAGS DIFF FINAL; LYMPH % 17.8 % (9.0-44.0); LYMPHOCYTE # 1.1 TH/MM3 (1.0-4.8); MEAN CELL VOLUME 77.1 FL (80.0-100.0); MEAN CORPUSCULAR HEMOGLOBIN 25.8 PG (27.0-34.0); MEAN CORPUSCULAR HGB CONC 33.5 % (32.0-36.0); MONO % 4.5 % (0.0-8.0); NEUT % 77.3 % (16.0-70.0); PLATELET COUNT 193 TH/MM3 (150-450); RED BLOOD COUNT 4.49 MIL/MM3 (4.00-5.30); RED CELL DISTRIBUTION WIDTH 15.9 % (11.6-17.2); WHITE BLOOD COUNT 5.9 TH/MM3 (4.0-11.0)
[2017-04-17 06:40] LABS: ANION GAP 13 MEQ/L (5-15); BICARBONATE 19.1 MEQ/L (21.0-32.0); BLOOD UREA NITROGEN 16 MG/DL (7-18); CHLORIDE 109 MEQ/L (98-107); GLOMERULAR FILTRATION RATE 112 ML/MIN (>89); POTASSIUM 4.2 MEQ/L (3.5-5.1); SODIUM (NA) 141 MEQ/L (136-145)
[2017-04-17 06:41] LABS: ALT (GPT) 61 U/L (10-53)
[2017-04-17 07:03] LABS: ALKALINE PHOSPHATASE 76 U/L (45-117); AST (GOT) 43 U/L (15-37); TOTAL BILIRUBIN ADULT 0.5 MG/DL (0.2-1.0)
[2017-04-17] MEDS: SODIUM CHLORIDE 0.9% FLUSH 10 ML FLUSH IV FLUSH SCH ×2 (08:31→21:25)
--- NOTE | 2017-04-17 09:32 | PD.CONS ---
HPI Chief Complaint Found seizing at home Date Seen: Apr 17, 2017 Time Seen: 09:03 Travel History International Travel<30 Days: No Contact w/Intl Traveler<30Days: No Known Affected Area: No History of Present Illness HPI 27 yo swf P2 well known to me for DESTINY treatment during and after . Actually dismissed from practice for non compliance, but I am willing to see and help with efforts for residential treatment. History of opioid, amphetamine and gapapentin use. Has been off and on subutex and suboxone in my practice with help from [facility] and other service organizations. Has done 12 step programs and lost track of sponsors. Recently regained custody of her children. Recently reached out to me and asked to return to practice for MAT, which was denied. Found non responsive by police in her home after 911 call from her 4 year old daughter. I was called by her recovery network. Discussion with Dr. Post and Tosha indicated significant intoxication and that she was found by paramedics having a gran mal seizure. UDS at hospital suggests only amphetamines. No evidence of infection. I have not yet seen Pamella, but I do believe she has a significant seizure disorder, independent of her DESTINY and I was treating her with gabapentin and lamictal. Attempts to get eEG and outpatient neurologic evaluations, which I ordered several times, were thwarted by her lack of insurance. In her defense, she tried hard to get these appointments and her EEG in the past. I would like to see her get an EEG during this observation visit and see a neurologist who will follow up on an out patient basis. I will come in tomorrow morning to discuss mood stablization and MAT. 04/17/17 Pamella was walking to the bed from the bathroom when I arrived in [facility]. Her face is bruised and bloody. She has chipped a tooth and split her tongue. She behaves post ictal. I asked her what happened and she replied that "no one will give me my seizure medicine" For the record, since I dismissed Pamella from the practice, she has had no follow up care. I dismissed her after she was hospitalized at [facility] with a severe soft tissue infection in her hand, which I presumed was from a dirty needle. This was in December. She is speaking very softly and cannot remember the most basic things. She is oriented to place but not time. She does not remember how she got here. She is still caring for her children, having received custody back this summer. She cannot remember where she works. She acknowledges she has been using adderall that she cannot describe how she gets. She denies any opioids or IVDA. I do not see any fresh tracks. Allergies-Medications (Allergen,Severity, Reaction): Coded Allergies: No Known Allergies (Unverified , 12/09/14) Home Meds Reported Medications Buspirone (Buspirone) 10 Mg Tab, 10 MG PO TID for Anxiety, TAB 0 Refills 08/03/16 Lamotrigine (Lamictal) 150 Mg Tab, 150 MG PO DAILY for Control Seizures, #60 TAB 0 Refills 08/03/16 Gabapentin (Gabapentin) 100 Mg Cap, 100 MG PO TID, #90 CAP 0 Refills 08/03/16 Buprenorphine-Naloxone Sublingual Film (Suboxone Sublingual Film) 2-0.5 Mg Film , 1 FILM SL, FILM Unique ID number required: 08/03/16 Physical Exam Vital Signs Date Time Temp Pulse Resp B/P (MAP) Pulse Ox O2 Delivery O2 Flow Rate FiO2 04/17/17 07:37 98.6 69 16 107/59 (75) 100 04/17/17 05:13 98.4 74 18 106/62 (77) 97 04/17/17 00:53 98.5 75 18 108/65 (79) 100 04/16/17 21:28 97.6 83 18 120/69 (86) 100 04/16/17 19:10 87 18 107/67 (80) 95 04/16/17 17:38 97.8 96 16 113/76 (88) 99 04/16/17 14:30 97.8 81 16 118/77 (91) 100 Room Air 04/16/17 13:47 16 100 Room Air 04/16/17 13:30 89 16 100 Room Air 04/16/17 13:29 98.1 89 16 116/64 (81) 100 Narrative GENERAL: very thin, pale HEAD:bruises, cuts and swollen lip from falling. chipped tooth EYES: No scleral icterus. No injection or drainage. small hemorrhage PERRLA NECK: Supple, trachea midline. No JVD. CARDIOVASCULAR: Regular rate and rhythm without murmurs, gallops, or rubs. RESPIRATORY: Breath sounds equal bilaterally. No accessory muscle use. EXTREMITIES: No new tracks. I think what is seen is picking from amphetamine use or general anxiety. She cannot keep her hands from her face or arms. BACK: Nontender without obvious deformity. No CVA tenderness. NEUROLOGICAL:as per HPI Data Data Orders Orders Complete Blood Count With Diff (04/16/17 13:42) Comprehensive Metabolic Panel (04/16/17 13:42) Urinalysis - C+S If Indicated (04/16/17 13:42) Iv Access Insert/Monitor (04/16/17 13:42) Ecg Monitoring (04/16/17 13:42) Oximetry (04/16/17 13:42) Sodium Chloride 0.9% Flush (Ns Flush) (04/16/17 13:45) Drug Screen, Random Urine (04/16/17 13:42) Ed Urine Pregnancytest Poc (04/16/17 14:02) Hiv Antibody Screen (04/16/17 16:27) Hepatitis B Surface Ag (04/16/17 16:27) Hepatitis C Ab,Igg (04/16/17 16:27) Ct Brain W/O Iv Contrast(Rout) (04/16/17 ) Ct Facial Bones W/O Iv Cont (04/16/17 ) Admit Order (Ed Use Only) (04/16/17 16:44) Consult Neurology (04/16/17 ) Consult Gynecology (04/16/17 ) Place In Observation (04/16/17 ) Vital Signs (Adult) Q4H (04/16/17 16:50) Activity Oob With Assistance (04/16/17 16:50) Intake + Output BARBIE.QSHIFT (04/16/17 16:50) Sodium Chlor 0.9% 1000 Ml Inj (Ns 1000 M (04/16/17 16:50) Sodium Chloride 0.9% Flush (Ns Flush) (04/16/17 17:00) Sodium Chloride 0.9% Flush (Ns Flush) (04/16/17 21:00) Comprehensive Metabolic Panel (04/17/17 06:00) Complete Blood Count With Diff (04/17/17 06:00) Case Management Consult (04/16/17 16:50) Scd Bilateral/Knee High BARBIE.BID (04/16/17 16:50) Naloxone Inj (Narcan Inj) (04/16/17 17:00) Magnesium Hydroxide Liq (Milk Of Magnesi (04/16/17 17:00) Sennosides (Senokot) (04/16/17 17:00) Bisacodyl Supp (Dulcolax Supp) (04/16/17 17:00) Lactulose Liq (Lactulose Liq) (04/16/17 17:00) Eeg Study (04/16/17 ) ^ Seizure Precautions (04/16/17 16:52) Creatine Kinase (Cpk) (04/16/17 16:53) ^ Other Nursing Orders (04/16/17 16:54) (Hub Use Only)Inp Phy Cons/Ref (04/16/17 ) (Hub Use Only)Inp Phy Cons/Ref (04/16/17 ) Vascular Access Team Consult/P PRN (04/16/17 18:50) Vascular Poc Ultrasound (04/16/17 ) CKMB (04/16/17 14:00) CKMB% (04/16/17 14:00) Lorazepam Inj (Ativan Inj) (04/16/17 23:15) Diet Npo (04/17/17 Breakfast) Sleeve, Knee Sequential Geronimo Pr (04/17/17 01:29) Physician Name Changes (04/17/17 ) Us Abdomen Liver (04/17/17 ) Labs Laboratory Tests Test 04/16/17 14:00 04/16/17 17:56 04/17/17 05:35 White Blood Count 8.1 5.9 Red Blood Count 4.62 4.49 Hemoglobin 11.6 11.6 Hematocrit 34.6 34.6 Mean Corpuscular Volume 74.9 77.1 Mean Corpuscular Hemoglobin 25.1 25.8 Mean Corpuscular Hemoglobin Concent 33.5 33.5 Red Cell Distribution Width 16.1 15.9 Platelet Count 319 193 Mean Platelet Volume 7.4 7.8 Neutrophils (%) (Auto) 88.2 77.3 Lymphocytes (%) (Auto) 9.2 17.8 Monocytes (%) (Auto) 2.3 4.5 Eosinophils (%) (Auto) 0.0 0.2 Basophils (%) (Auto) 0.3 0.2 Neutrophils # (Auto) 7.2 4.6 Lymphocytes # (Auto) 0.7 1.1 Monocytes # (Auto) 0.2 0.3 Eosinophils # (Auto) 0.0 0.0 Basophils # (Auto) 0.0 0.0 CBC Comment DIFF FINAL DIFF FINAL Differential Comment Urine Color YELLOW Urine Turbidity HAZY Urine pH 6.0 Urine Specific [place] 1.021 Urine Protein TRACE Urine Glucose (UA) NEG Urine Ketones 10 Urine Occult Blood NEG Urine Nitrite NEG Urine Bilirubin NEG Urine Urobilinogen LESS THAN 2.0 Urine Leukocyte Esterase NEG Urine RBC 1 Urine WBC 1 Urine Squamous Epithelial Cells 1 Urine Amorphous Sediment RARE Urine Mucus FEW Microscopic Urinalysis Comment CULT NOT INDICATED Blood Urea Nitrogen 13 16 Creatinine 0.81 0.63 Random Glucose 117 78 Total Protein 7.4 7.5 Albumin 4.1 4.1 Calcium Level 8.9 8.7 Alkaline Phosphatase 76 76 Aspartate Amino Transf (AST/SGOT) 51 43 Alanine Aminotransferase (ALT/SGPT) 66 61 Total Bilirubin 0.3 0.5 Sodium Level 139 141 Potassium Level 3.5 4.2 Chloride Level 105 109 Carbon Dioxide Level 25.9 19.1 Anion Gap 8 13 Estimat Glomerular Filtration Rate 84 112 Total Creatine Kinase 415 Creatine Kinase MB 8.6 Creatine Kinase MB % 2.1 Urine Opiates Screen NEG Urine Barbiturates Screen NEG Urine Amphetamines Screen POS Urine Benzodiazepines Screen NEG Urine Cocaine Screen NEG Urine Cannabinoids Screen NEG HIV (1&2) Antibody NEGATIVE MDM Medical Record Reviewed: Yes Narrative Course / MDM Post ictal after gran mal seizure history of DESTINY, current use of non prescribed adderall depression Plan I strongly believe that Pamella has a significant seizure disorder independent of her history of past IVDA and current adderall in her system. I had been prescribing lamictal for her in the past with gabapentin in significant doses which we were attempting to wean. Gabapentin has been identified as a drug of abuse in the recent months. I had been prescribing suboxone for her when she was attempting MAT to wean off of illicit opioids. She was dismissed for non compliance and breaking her written MAT contract. I am out of my scope at this time, as she is neither nor currently identified as using opioids. I do not think opioid MAT is indicated. I do think she continues to misuse amphetamines. I do believe she has a seizure disorder that needs to be evaluated and treated. In her defense, she has tried to obtain an EEG and neurology consultation on an out patient basis at least 3 times and has been turned away. I would like to see her obtain an in house evaluation. She is alone at home with two young children. Discussion with her Dad who just arrived indicates that the toddler ran to the neighbors for help. This situation needs case management and she needs evaluation for both seizure and depression. I can be reached at [phone]. Admitting diagnosis: Seizure disorder vs OD Condition: Stable Tiarra London MD Apr 17, 2017 09:32
--- NOTE | 2017-04-17 10:55 | RADRPT ---
EXAM DATE/TIME: 04/17/2017 10:08 [place] COMPARISON: No previous studies available for comparison. INDICATIONS : Increased lab values. MEDICAL HISTORY : . Substance abuse. Seizures. SURGICAL HISTORY : None. ENCOUNTER: Initial ACUITY: 1 day PAIN SCORE: 0/10 LOCATION: Abdomen. MEASUREMENTS: LIVER: 13.9 cm length COMMON DUCT: 3 mm RIGHT KIDNEY: 10.9 x 5.0 x 4.1 cm SPLEEN: 12.2 cm length FINDINGS: LIVER: Normal echotexture without focal lesion or ductal dilatation. COMMON DUCT: No intraluminal mass or stone visualized. GALLBLADDER: Trace sludge in the gallbladder which otherwise appears unremarkable without significant gallbladder wall thickening, stones or purple cystic fluid. PANCREAS: The visualized portions are within normal limits. RIGHT KIDNEY: No hydronephrosis, stone or mass. SPLEEN: No focal lesion. CONCLUSION: 1. Trace sludge in the dependent portion of the gallbladder. Otherwise, unremarkable sonographic appe arance of the gallbladder. Jonatan Chen MD on April 17, 2017 at 10:52 Board Certified Radiologist. This report was verified electronically.
[2017-04-17] MEDS ORDERED: PHENYTOIN INJ 1,000 MG in SODIUM CHLORIDE 0.9% INJ 100 ML IV ONE (14:30)
[2017-04-17] MEDS ORDERED: PHENYTOIN SODIUM 100 MG CAP PO ONE (14:30)
--- NOTE | 2017-04-17 14:42 | MG ---
cc: DMITRIY BUI MD Lab No: Date: Age: 27 Sex: F Race: DATE OF 1990 REFERRING PHYSICIAN: Dr. Trinidad. MEDICAL HISTORY: The patient was found unresponsive by her child who called and was found actively seizing. History of drug abuse. Seizures. Asthma. Tobacco andsubstance abuse. PTSD. Caffeine. DESCRIPTION OF THE RECORDING: The EEG recording reveals evidence of sharp wave activity with sharp wave activity with spike and slow wave generalized bilaterally throughout the recording with a background of generalized slowing. There are episodes of brief convulsive episodes at epoch 23 and epoch 135-136. Photic stimulation did not elicit a driving response. Hyperventilation with no change in the background. Another episode of convulsive activity at epoch 15 and epoch 20-21. INTERPRETATION: This is an abnormal EEG with evidence of epileptiform discharges sharp and slow wave and runs of change of rhythmicity that indicates electrographic seizures generalized throughout the recording. The results are relayed to the RN and orders to treat the seizures have been placed. MD KEE Warren/JOSE /2:22 PM /2:31 PM [email or web address]
--- NOTE | 2017-04-17 15:08 | HHI.PR ---
Subjective Remarks EEG shows evidence of seizure disorder at baseline. Further monitoring warranted. No new complaints from the patient. Objective Vital Signs Date Time Temp Pulse Resp B/P (MAP) Pulse Ox O2 Delivery O2 Flow Rate FiO2 04/17/17 11:32 97.5 88 16 117/65 (82) 100 04/17/17 07:37 98.6 69 16 107/59 (75) 100 04/17/17 05:13 98.4 74 18 106/62 (77) 97 04/17/17 00:53 98.5 75 18 108/65 (79) 100 04/16/17 21:28 97.6 83 18 120/69 (86) 100 04/16/17 19:10 87 18 107/67 (80) 95 04/16/17 17:38 97.8 96 16 113/76 (88) 99 I/O 04/16/17 04/16/17 04/16/17 04/17/17 04/17/17 04/17/17 06:59 14:59 22:59 06:59 14:59 22:59 Intake Total 0 ml 1000 ml Balance 0 ml 1000 ml Intake Oral 0 ml IV Total 1000 ml # Voids 1 Result Diagram: 04/17/17 0535 04/17/17 0535 Objective Remarks GENERAL: A&Ox3 SKIN: Warm and dry. HEAD: Normocephalic. EYES: No scleral icterus. No injection or drainage. NECK: Supple, trachea midline. No JVD or lymphadenopathy. CARDIOVASCULAR: Regular rate and rhythm without murmurs, gallops, or rubs. RESPIRATORY: Breath sounds equal bilaterally. No accessory muscle use. GASTROINTESTINAL: Abdomen soft, non-tender, nondistended. MUSCULOSKELETAL: No cyanosis, or edema. BACK: Nontender without obvious deformity. No CVA tenderness. A/P Problem List: (1) Seizures ICD Code: R56.9 - Unspecified convulsions Status: Acute Assessment and Plan Assessment and Plan 27 year old female admitted with altered mental status, suspected seizure etiology. Seizure Disorder Neurology following Continue present seizure treatments Amphetamines are likely contributory Continue to monitor for seizure recurrence Seizure protocol Altered Mental Status May have been post ictal Resolved now Nasal Fracture Outpatient ENT follow up RISHABH Follow renal function Opioid Dependence On Suboxone at baseline DVT Prophylaxis Valdemar Graves MD Apr 17, 2017 15:08
--- NOTE | 2017-04-17 15:32 | MB ---
cc: DMITRIY BUI MD DATE OF CONSULTATION: 04/17/2017. REASON FOR CONSULTATION: Seizures. HISTORY OF PRESENT ILLNESS: Ms. Collazo is a 27-year-old female with extensive history of IV drug abuse, seizure disorder, substance dependence on Adderall. She was on Gabapentin 800 milligrams three times a day, Lamictal (she cannot recall the dose) and she has been off these medications for almost a week; she ran out of them and she presented to the [facility] with breakthrough seizures , tonic clonic, with postictal confusional states. She has a 4-year-old child who actually called 9-1-1. She denies any warning symptoms before these seizures and she has had several seizures over the last year. History is obtained from the registered nurse, medical records and the patient. REVIEW OF SYSTEMS: A twelve-point review of systems was negative except as stated in the history of present illness. PAST MEDICAL HISTORY: 1. Seizure disorder. 2. IV drug abuse. 3. Opiate use. 4. Adderall dependence. PAST SURGICAL HISTORY: Not applicable. MEDICATIONS: 1. Lamictal 150 milligrams daily as per review of the medical records. 2. Gabapentin 100 milligrams three times daily. 3. Suboxone. 4. Buspirone. ALLERGIES: NO KNOWN ALLERGIES. FAMILY HISTORY: Noncontributory. SOCIAL HISTORY: History of drug abuse, opiate abuse, IV drug abuse. No reported history of tobacco or alcohol. PHYSICAL EXAMINATION: GENERAL: Awake, alert, anxious, withdrawn. SKIN: Various abrasions on her face and upper and lower extremities. HEAD, EYES, EARS, NOSE, THROAT: Normal vision, intact hearing. NECK: No neck stiffness. No carotid bruits. CARDIOVASCULAR: Regular rate and rhythm. RESPIRATORY: Clear to auscultation. GASTROINTESTINAL: Soft abdomen, not tender. MUSCULOSKELETAL: Moves extremities equally without cyanosis or clubbing. NEUROLOGIC: Awake, alert and oriented to time, person and place. No dysarthria. No dysphagia. Cranial nerves II through XII are grossly intact. Motor examination is grossly intact with give-way due to pain in the joints. Sensation is intact throughout. Finger-nose intact. Reflexes 2+ bilateral and symmetrical. Plantars are bilateral downgoing. PSYCHIATRIC: Anxious. Mildly withdrawn. Cooperative. No hallucinations. LABS: White blood cells 8.1, hemoglobin 11.6, platelet count 319,000. Urine drug screen negative. BUN 13, creatinine 0.81, calcium 8.9, alkaline phosphatase 76, AST 31, ALT 66, sodium 139, potassium 3.5. DIAGNOSTIC IMAGING: - Head CT scan without contrast was reported as normal. - EEG revealed epileptiform discharge and ictal activity with electrographic seizures. DIAGNOSTIC IMPRESSION: 1. Breakthrough seizures. 2. Drug dependence. - Likely these seizures are withdrawal, unlikely a meningeal encephalitic process given the normal white blood cells, afebrile and no signs of meningeal irritation. 3. IV dependence. 4. Opiate dependence. PLAN: 1. Neuro checks q. 4 hourly. 2. Dilantin loading dose 1000 milligrams. 3. Dilantin 100 milligrams three times a day. 4. Gabapentin 300 milligrams q 8 hourly. 5. I resumed the Gabapentin and Lamictal given the withdrawal symptoms 6. Lamictal 25 milligrams twice a day. 7. Obtain Dilantin level 8:00 p.m. tonight. 8. Follow up EEG tomorrow a.m. 9. Seizure precautions. 10. Continue supportive medical therapy. 12. DVT prophylaxis. 13. GI prophylaxis. Thank you for the opportunity to participate in the care your patient. MD KEE Warren/JOSE /2:29 PM /2:46 PM ARIA
[2017-04-17] MEDS: lamoTRIgine 25 MG TAB PO SCH ×2 (15:43→21:25)
--- NOTE | 2017-04-17 15:44 | PD.PSY.CON ---
Provisional Diagnosis Admission Date Apr 16, 2017 at 16:48 Start I. Unspecified depressive disorder History of Present Illness Service Psychiatry Consult Requested By ED Reason for Consult Evaluate depression and anxiety Primary Care Physician No Primary Care Physician HPI Patient is a 27-year-old woman domiciled with 2 children who are minors, unemployed supported by help from family and friends, with a past psychiatric history of depression, no psychiatric hospitalizations no previous suicide attempt or self-injurious behavior with a history of polysubstance use disorder (opioid, amphetamines, gabapentin) who was brought in by EMS for evaluation of possible seizures which psychiatry was consulted for evaluation of depression and anxiety. Patient was found lying in hospital bed noted be superficially cooperative with interview. Patient states that she came to the hospital due to having had a seizure state that she has history of seizures last time being one year ago which is very similar event such as this occasion. Patient states that she has outpatient follow-up with her primary care doctor. Patient reports that she had been treated for depression the past where she's been taking Zoloft 100 mg by mouth daily prescribed by her outpatient physician for the past year which she feels has them helping. Patient states that for the past couple of weeks she's been sleeping well without difficulty appetite, energy or concentration state that she has not a suicide depressed recently, patient denies any manic or psychotic symptoms at this time. When asked if patient had been recently using any other substances patient denies any appears very guarded when talking about her substance use history. Patient at this time denies any SI, HI, AVH or delusions at this time. Psychiatric history: Previous psychiatric diagnoses of depression as per patient , no previous psychiatric hospitalizations, suicide attempts or self-injurious behavior. Patient denies having had any previous suicide ideations in the past either. Previous medication trials include Zoloft 100 mg by mouth daily she has been taking for the past year. Substance use history: Tobacco (+), reports previous opioid use disorder, last use was a couple of months ago. Patient denies use of any other substances. Patient reports having been engage in rehabilitation program one year ago and has been engage with a sponsor with [facility]. Past medical history: Patient reports seizure disorder Allergies: NKDA Social history: Patient states living with her 2 children, unemployed, supported financially by family and friends, patient denies having his to firearms in the home. Past Family Social History Coded Allergies: No Known Allergies (Unverified , 12/09/14) Reported Medications Buspirone (Buspirone) 10 Mg Tab, 10 MG PO TID for Anxiety, TAB 0 Refills 08/03/16 Lamotrigine (Lamictal) 150 Mg Tab, 150 MG PO DAILY for Control Seizures, #60 TAB 0 Refills 08/03/16 Gabapentin (Gabapentin) 100 Mg Cap, 100 MG PO TID, #90 CAP 0 Refills 08/03/16 Buprenorphine-Naloxone Sublingual Film (Suboxone Sublingual Film) 2-0.5 Mg Film , 1 FILM SL, FILM Unique ID number required: 08/03/16 Current Medications Medications (Trade) Dose Ordered Sig/Andres Route Start Time Stop Time Status Last Admin (NS Flush) 2 ml UNSCH PRN IVF 04/16/17 13:45 04/16/17 13:48 Sodium Chloride 1,000 ml @ 100 mls/hr Q10H IV 04/16/17 16:50 04/17/17 12:50 (NS Flush) 2 ml UNSCH PRN IV FLUSH 04/16/17 17:00 (NS Flush) 2 ml BID IV FLUSH 04/16/17 21:00 04/16/17 20:28 (Narcan Inj) 0.4 mg UNSCH PRN IV PUSH 04/16/17 17:00 (Milk Of Magnesia Liq) 30 ml Q12H PRN PO 04/16/17 17:00 (Senokot) 17.2 mg Q12H PRN PO 04/16/17 17:00 (Dulcolax Supp) 10 mg DAILY PRN RECTAL 04/16/17 17:00 (Lactulose Liq) 30 ml DAILY PRN PO 04/16/17 17:00 (Ativan Inj) 1 mg Q15M PRN IV PUSH 04/16/17 23:15 (Neurontin) 300 mg TID PO 04/17/17 18:00 (LaMICtal) 25 mg Q12HR PO 04/17/17 14:30 Physical Exam Vital Signs Vital Signs Date Time Temp Pulse Resp B/P (MAP) Pulse Ox O2 Delivery O2 Flow Rate FiO2 04/17/17 11:32 97.5 88 16 117/65 (82) 100 04/16/17 14:30 Room Air I/O 04/17/17 04/17/17 04/18/17 08:00 16:00 00:00 Intake Total 1000 ml Balance 1000 ml Lab Results Test 04/16/17 17:56 04/17/17 05:35 HIV (1&2) Antibody NEGATIVE White Blood Count 5.9 TH/MM3 Red Blood Count 4.49 MIL/MM3 Hemoglobin 11.6 GM/DL Hematocrit 34.6 % Mean Corpuscular Volume 77.1 FL Mean Corpuscular Hemoglobin 25.8 PG Mean Corpuscular Hemoglobin Concent 33.5 % Red Cell Distribution Width 15.9 % Platelet Count 193 TH/MM3 Mean Platelet Volume 7.8 FL Neutrophils (%) (Auto) 77.3 % Lymphocytes (%) (Auto) 17.8 % Monocytes (%) (Auto) 4.5 % Eosinophils (%) (Auto) 0.2 % Basophils (%) (Auto) 0.2 % Neutrophils # (Auto) 4.6 TH/MM3 Lymphocytes # (Auto) 1.1 TH/MM3 Monocytes # (Auto) 0.3 TH/MM3 Eosinophils # (Auto) 0.0 TH/MM3 Basophils # (Auto) 0.0 TH/MM3 CBC Comment DIFF FINAL Differential Comment Blood Urea Nitrogen 16 MG/DL Creatinine 0.63 MG/DL Random Glucose 78 MG/DL Total Protein 7.5 GM/DL Albumin 4.1 GM/DL Calcium Level 8.7 MG/DL Alkaline Phosphatase 76 U/L Aspartate Amino Transf (AST/SGOT) 43 U/L Alanine Aminotransferase (ALT/SGPT) 61 U/L Total Bilirubin 0.5 MG/DL Sodium Level 141 MEQ/L Potassium Level 4.2 MEQ/L Chloride Level 109 MEQ/L Carbon Dioxide Level 19.1 MEQ/L Anion Gap 13 MEQ/L Estimat Glomerular Filtration Rate 112 ML/MIN Mental Status Examination Appearance: Disheveled Consciousness: Alert Orientation: Person, Place Speech: Other (low-volume) Language: Adequate Fund of Knowledge: Inadequate Attention and Concentration: Inadequate Memory: Unremarkable Mood: Other ("okay") Affect: Other (restricted) Thought Process & Associations: Intact, Linear Thought Content: Appropriate Hallucination Type: None Delusion Type: None Suicidal Ideation: No Suicidal Plan: No Suicidal Intention: No Homicidal Ideation: No Homicidal Plan: No Homicidal Intention: No Insight: Fair Judgment: Impulsive Assessment & Plan Problem List: (1) Polysubstance dependence ICD Codes: F19.20 - Other psychoactive substance dependence, uncomplicated Assessment & Plan Patient is a 27-year-old woman who carries a diagnosis of depression, polysubstance use disorder, no previous psychiatric hospitalizations, no previous suicide attempts or self-injurious behavior who currently has no depressive manic or psychotic symptoms at this time but has an ongoing substance use disorder. Patient at this time does not require any acute psychiatric intervention but would benefit from intensive inpatient rehabilitation program for substance use as well as continued outpatient follow- up for depression. Patient at this time poses no risk for intentional self- harm or harm to others and psychiatrically cleared to continue recommendations as per primary medical team. Consult appreciated King Lamar MD Apr 17, 2017 15:44
[2017-04-17] MEDS: GABAPENTIN 300 MG CAP PO SCH (17:10)
[2017-04-18 04:15] VITALS: BP 111/67; PULSE 75; RESP 18; TEMP 98.8; O2SAT 97
[2017-04-18 08:36] VITALS: BP 114/62; PULSE 72; RESP 16; TEMP 97.8; O2SAT 100
[2017-04-18] MEDS: SODIUM CHLOR 0.9% 1000 ML INJ 1,000 ML IV SCH ×2 (09:19→19:20)
[2017-04-18] MEDS: lamoTRIgine 25 MG TAB PO SCH ×2 (09:19→21:05)
[2017-04-18] MEDS: SODIUM CHLORIDE 0.9% FLUSH 10 ML FLUSH IV FLUSH SCH ×2 (09:19→21:04)
[2017-04-18] MEDS: GABAPENTIN 300 MG CAP PO SCH ×3 (09:19→18:14)
[2017-04-18 11:13] VITALS: BP 120/76; PULSE 79; RESP 16; TEMP 98.4; O2SAT 100
--- NOTE | 2017-04-18 14:07 | HHI.PR ---
Review/Management Diagnosis 1. Breakthrough seizures. 2. Drug dependence. - Likely these seizures are withdrawal due to AED non compliance,unlikely a meningeal encephalitic process given the normal white blood cells, afebrile and no signs of meningeal irritation. 3. IV dependence. 4. Opiate dependence. Plan 1. Neuro checks q. 4 hourly. 2. Dilantin 100 milligrams three times a day. 3. Gabapentin 300 milligrams q 8 hourly. 4. Lamictal 25 milligrams twice a day. 5. Obtain Dilantin level next am. 6. Seizure precautions. 7. Continue supportive medical therapy. 8. DVT prophylaxis. 9. GI prophylaxis. 10. Follow up EEG Diagnosis/Plan: Subjective Subjective Comments No acute events reported No reported seizures Dilantin level is therapeutic [15.1] The patient denies any complaints No family at bed side Active Medications Current Medications Medications (Trade) Dose Ordered Sig/Andres Route Start Time Stop Time Status Last Admin (NS Flush) 2 ml UNSCH PRN IVF 04/16/17 13:45 04/16/17 13:48 Sodium Chloride 1,000 ml @ 100 mls/hr Q10H IV 04/16/17 16:50 04/18/17 09:19 (NS Flush) 2 ml UNSCH PRN IV FLUSH 04/16/17 17:00 (NS Flush) 2 ml BID IV FLUSH 04/16/17 21:00 04/18/17 09:19 (Narcan Inj) 0.4 mg UNSCH PRN IV PUSH 04/16/17 17:00 (Milk Of Magnesia Liq) 30 ml Q12H PRN PO 04/16/17 17:00 (Senokot) 17.2 mg Q12H PRN PO 04/16/17 17:00 (Dulcolax Supp) 10 mg DAILY PRN RECTAL 04/16/17 17:00 (Lactulose Liq) 30 ml DAILY PRN PO 04/16/17 17:00 (Ativan Inj) 1 mg Q15M PRN IV PUSH 04/16/17 23:15 (Neurontin) 300 mg TID PO 04/17/17 18:00 04/18/17 13:13 (LaMICtal) 25 mg Q12HR PO 04/17/17 14:30 04/18/17 09:19 Allergies Allergies Coded Allergies No Known Allergies (Unverified8/2/15) Review of Systems All other ROS: ROS reviewed as documented in chart Exam I&O / VS Vital Signs Date Time Temp Pulse Resp B/P (MAP) Pulse Ox O2 Delivery O2 Flow Rate FiO2 04/18/17 11:13 98.4 79 16 120/76 (91) 100 04/18/17 08:36 97.8 72 16 114/62 (79) 100 04/18/17 04:15 98.8 75 18 111/67 (82) 97 04/17/17 23:45 98.8 74 18 103/67 (79) 99 04/17/17 20:43 98.8 74 18 112/58 (76) 98 04/17/17 15:50 98.6 81 16 114/56 (75) 98 Exam Comments GENERAL: Awake, alert, less anxious SKIN: Various abrasions on her face and upper and lower extremities. HEAD, EYES, EARS, NOSE, THROAT: Normal vision, intact hearing. NECK: No neck stiffness. No carotid bruits. CARDIOVASCULAR: Regular rate and rhythm. RESPIRATORY: Clear to auscultation. GASTROINTESTINAL: Soft abdomen, not tender. MUSCULOSKELETAL: Moves extremities equally without cyanosis or clubbing. NEUROLOGIC: Awake, alert and oriented to time, person and place. No dysarthria. No dysphagia. Cranial nerves II through XII are grossly intact. Motor examination is grossly intact with give-way due to pain in the joints. Sensation is intact throughout. Finger-nose intact. Reflexes 2+ bilateral and symmetrical. Plantars are bilateral downgoing. PSYCHIATRIC: Anxious. Mildly withdrawn. Cooperative. No hallucinations. Objective Radiology Results Last 72 hours Impressions Liver Ultrasound 04/17/17 0000 Signed Impressions: Service Date/Time: Monday, April 17, 2017 10:08 - CONCLUSION: 1. Trace sludge in the dependent portion of the gallbladder. Otherwise, unremarkable sonographic appearance of the gallbladder. Jonatan Chen MD Maxillofacial CT 04/16/17 0000 Signed Impressions: Service Date/Time: Sunday, April 16, 2017 18:07 - CONCLUSION: Acute fracture involving the right nasal bone. David Vizcarra MD Head CT 04/16/17 0000 Signed Impressions: Service Date/Time: Sunday, April 16, 2017 18:05 - CONCLUSION: No acute disease. David Vizcarra MD Micro and Labs Laboratory Tests Test 04/17/17 20:52 04/18/17 03:40 Phenytoin (Dilantin) Level 18.9 15.1 Rafa Mayorga MD Apr 18, 2017 14:07
--- NOTE | 2017-04-18 14:44 | HHI.PR ---
Subjective Remarks EEG showed evidence of seizure disorder activity. Seizure treatments have been adjusted and a repeat EEG is planned. Patient has no new complaints. Objective Vital Signs Date Time Temp Pulse Resp B/P (MAP) Pulse Ox O2 Delivery O2 Flow Rate FiO2 04/18/17 11:13 98.4 79 16 120/76 (91) 100 04/18/17 08:36 97.8 72 16 114/62 (79) 100 04/18/17 04:15 98.8 75 18 111/67 (82) 97 04/17/17 23:45 98.8 74 18 103/67 (79) 99 04/17/17 20:43 98.8 74 18 112/58 (76) 98 04/17/17 15:50 98.6 81 16 114/56 (75) 98 I/O 04/17/17 04/17/17 04/17/17 04/18/17 04/18/17 04/18/17 07:00 15:00 23:00 07:00 15:00 23:00 Intake Total 1000 ml 220 ml Balance 1000 ml 220 ml Intake Oral 100 ml IV Total 1000 ml 120 ml Result Diagram: 04/17/1735 04/17/1735 Objective Remarks GENERAL: A&Ox3 SKIN: Warm and dry. HEAD: Normocephalic. EYES: No scleral icterus. No injection or drainage. NECK: Supple, trachea midline. No JVD or lymphadenopathy. CARDIOVASCULAR: Regular rate and rhythm without murmurs, gallops, or rubs. RESPIRATORY: Breath sounds equal bilaterally. No accessory muscle use. GASTROINTESTINAL: Abdomen soft, non-tender, nondistended. MUSCULOSKELETAL: No cyanosis, or edema. BACK: Nontender without obvious deformity. No CVA tenderness. A/P Problem List: (1) Seizures ICD Code: R56.9 - Unspecified convulsions Status: Acute Assessment and Plan Assessment and Plan 27 year old female admitted with altered mental status, suspected seizure etiology. Labs reviewed. Continue to monitor labs including Dilantin level. Dilantin has been admitted by neurology as a treatment for seizure disorder. Repeat EEG plan. Seizure Disorder Neurology following Continue present seizure treatments Amphetamines are likely contributory Continue to monitor for seizure recurrence Seizure protocol Altered Mental Status May have been post ictal Resolved now Nasal Fracture Outpatient ENT follow up RISHABH Follow renal function Opioid Dependence On Suboxone at baseline DVT Prophylaxis SCDs Valdemar Mcarthur MD Apr 18, 2017 14:44
[2017-04-18] MEDS: PHENYTOIN SODIUM 100 MG CAP PO SCH ×2 (14:58→21:04)
[2017-04-18 15:57] VITALS: BP 118/70; PULSE 85; RESP 16; TEMP 98.6; O2SAT 99
[2017-04-18 20:00] VITALS: BP 116/68; PULSE 86; RESP 20; TEMP 98.3; O2SAT 100
[2017-04-19] VITALS: BP 122/64; PULSE 73; RESP 17; TEMP 98.4; O2SAT 99
[2017-04-19 04:49] VITALS: BP 116/77; PULSE 69; RESP 17; TEMP 98.5; O2SAT 98
--- NOTE | 2017-04-19 05:13 | MG ---
cc: DMITRIY BUI Lab No: Date: 04/18/2017 Age: 27 Sex: F Race: DATE OF 12/27/1989 MEDICAL HISTORY 1. Found unresponsive by her child who called 9--1 and was found actively seizing by EVAC with postictal confusional state. 2. History of IV drug abuse. 3. Seizure disorder. 4. Asthma. 5. Tobacco, substance abuse. 6. PTSD. 7. Caffeine was. 8. Recent life stress. MEDICATIONS 1. Neurontin. 2. Lamictal. 3. Dilantin. NOTE This is a follow up EEG to EEG on 04/17/2017. DESCRIPTION There was mild slowing of the background in the 8-9 Hz theta with excessive beta activity. The patient transitioned to Stage II sleep during the recording. There were intermittent episodes of change in rhythmicity at epoch 3 lasted 1 second, epoch 24 that lasted 2 seconds, epoch 40 that lasted 3 seconds and at epoch 52 that lasted 5 seconds, at epoch 67 that lasted 2 seconds and from epoch 113-119 where there was slow, sharp and wave activity with no associated clinical convulsions. Photic stimulation did not elicit a driving response. Hyperventilation was omitted. INTERPRETATION This is an abnormal awake and drowsy EEG. The background activity of slowing may indicate an encephalopathy. There were intermittent episodes of brief electrographic activity lasting between 1-4 seconds with periodic sharp waves appearing bilaterally. The EEG is much improved compared to the previous EEG. Clinical correlation is recommended. MD KEE Warren/EMILY /9:15 PM /4:59 AM ARIA
[2017-04-19] MEDS: PHENYTOIN SODIUM 100 MG CAP PO SCH ×3 (05:29→21:43)
[2017-04-19] MEDS: SODIUM CHLOR 0.9% 1000 ML INJ 1,000 ML IV SCH ×2 (05:29→14:46)
[2017-04-19 08:07] VITALS: BP 116/71; PULSE 72; RESP 20; TEMP 97.7; O2SAT 100
[2017-04-19] MEDS: SODIUM CHLORIDE 0.9% FLUSH 10 ML FLUSH IV FLUSH SCH ×2 (08:07→21:00)
[2017-04-19] MEDS: lamoTRIgine 25 MG TAB PO SCH ×2 (08:08→21:40)
[2017-04-19] MEDS: GABAPENTIN 300 MG CAP PO SCH ×3 (08:08→17:20)
[2017-04-19 08:09] LABS: AUTOMATED NEUTROPHIL # 3.1 TH/MM3 (1.8-7.7); BASOPHIL % 0.8 % (0.0-2.0); EOSINOPHIL # 0.1 TH/MM3 (0-0.4); EOSINOPHIL % 2.5 % (0.0-4.0); HEMATOCRIT 30.7 % (35.0-46.0); HEMO FLAGS DIFF FINAL; LYMPH % 25.3 % (9.0-44.0); LYMPHOCYTE # 1.2 TH/MM3 (1.0-4.8); MEAN CELL VOLUME 76.7 FL (80.0-100.0); MEAN CORPUSCULAR HEMOGLOBIN 25.2 PG (27.0-34.0); MEAN CORPUSCULAR HGB CONC 32.9 % (32.0-36.0); MONO % 5.1 % (0.0-8.0); NEUT % 66.3 % (16.0-70.0); PLATELET COUNT 216 TH/MM3 (150-450); RED BLOOD COUNT 4.01 MIL/MM3 (4.00-5.30); RED CELL DISTRIBUTION WIDTH 16.3 % (11.6-17.2); WHITE BLOOD COUNT 4.6 TH/MM3 (4.0-11.0)
[2017-04-19 11:53] VITALS: BP 121/63; PULSE 84; RESP 20; TEMP 97.6; O2SAT 100
[2017-04-19 12:31] LABS: ALKALINE PHOSPHATASE 84 U/L (45-117); ALT (GPT) 52 U/L (10-53); ANION GAP 9 MEQ/L (5-15); AST (GOT) 74 U/L (15-37); BICARBONATE 22.2 MEQ/L (21.0-32.0); CHLORIDE 110 MEQ/L (98-107); GLOMERULAR FILTRATION RATE 146 ML/MIN (>89); POTASSIUM 3.4 MEQ/L (3.5-5.1); SODIUM (NA) 141 MEQ/L (136-145); TOTAL BILIRUBIN ADULT 0.1 MG/DL (0.2-1.0)
[2017-04-19 12:32] LABS: BLOOD UREA NITROGEN 5 MG/DL (7-18)
--- NOTE | 2017-04-19 12:53 | HHI.PR ---
Subjective Remarks Follow up for seizure activity. Patient is currently doing well. No further seizure activities. No fever, chills. Wants to take a shower. Objective Vitals Vital Signs Date Time Temp Pulse Resp B/P (MAP) Pulse Ox O2 Delivery O2 Flow Rate FiO2 04/19/17 11:53 97.6 84 20 121/63 (82) 100 04/19/17 08:07 97.7 72 20 116/71 (86) 100 04/19/17 04:49 98.5 69 17 116/77 (90) 98 04/19/17 00:00 98.4 73 17 122/64 (83) 99 04/18/17 20:00 98.3 86 20 116/68 (84) 100 04/18/17 15:57 98.6 85 16 118/70 (86) 99 I/O 04/18/17 04/18/17 04/18/17 04/19/17 04/19/17 04/19/17 07:00 15:00 23:00 07:00 15:00 23:00 Intake Total 1000 ml 240 ml Balance 1000 ml 240 ml Intake Oral 240 ml IV Total 1000 ml # Voids 3 Result Diagram: 04/19/17 0710 04/19/17 1120 Imaging Last Impressions Liver Ultrasound 04/17/17 0000 Signed Impressions: Service Date/Time: Monday, April 17, 2017 10:08 - CONCLUSION: 1. Trace sludge in the dependent portion of the gallbladder. Otherwise, unremarkable sonographic appearance of the gallbladder. Jonatan Chen MD Maxillofacial CT 04/16/17 0000 Signed Impressions: Service Date/Time: Sunday, April 16, 2017 18:07 - CONCLUSION: Acute fracture involving the right nasal bone. David Vizcarra MD Head CT 04/16/17 0000 Signed Impressions: Service Date/Time: Sunday, April 16, 2017 18:05 - CONCLUSION: No acute disease. David Vizcarra MD Objective Remarks GENERAL: Alert, Oriented x 3, NAD. SKIN: Warm and dry. HEAD: Normocephalic. EYES: No scleral icterus. No injection or drainage. NECK: Supple, trachea midline. No JVD or lymphadenopathy. CARDIOVASCULAR: Regular rate and rhythm without murmurs, gallops, or rubs. RESPIRATORY: Breath sounds equal bilaterally. No accessory muscle use. GASTROINTESTINAL: Abdomen soft, non-tender, nondistended. MUSCULOSKELETAL: No cyanosis, or edema. BACK: Nontender without obvious deformity. No CVA tenderness. Procedures EEG 04/18/2017 This is an abnormal awake and drowsy EEG. The background activity of slowing may indicate an encephalopathy. There were intermittent episodes of brief electrographic activity lasting between 1-4 seconds with periodic sharp waves appearing bilaterally. The EEG is much improved compared to the previous EEG. Clinical correlation is recommended. EEG 04/17/2017 This is an abnormal EEG with evidence of epileptiform discharges sharp and slow wave and runs of change of rhythmicity that indicates electrographic seizures generalized throughout the recording. The results are relayed to the RN and orders to treat the seizures have been placed. A/P Problem List: (1) Seizures ICD Code: R56.9 - Unspecified convulsions Status: Acute Assessment and Plan Ms. Collazo is a 27 year old female with a history of seizure disorder who was admitted after she had seizure activity and was unresponsive. Her 4 year old called 911. - Seizure activity - Neurology on board. - Currently patient is on Phenytoin 100mg Q8hrs, Lamictal 25mg Q12hrs - Continue Gabapentin 300mg TID. - Lorazepam PRN for acute seizure. - EEG from 04/18/2017 shows improvement. EEG pending today. - Left lateral tongue injury - Due to seizure. - Will provide Lidocaine swish and swallow for symptom relief. Full code. Ambulation. SCDs. Discharge: Discussed with Neurologist (Dr. Mayorga). Once cleared by Neurology, patient can be discharged home. Tanner Arevalo DO Apr 19, 2017 12:52
[2017-04-19] MEDS: LIDOCAINE VISCOUS 2% SOLN 15 ML UDC SWISH-SWAL PRN (13:16)
[2017-04-19] MEDS ORDERED: BUPRENORPHINE HCL 8 MG SUBLINGUAL TAB SL ONE ×2 (14:00→21:00)
--- NOTE | 2017-04-19 15:25 | HHI.PR ---
Review/Management Diagnosis 1. Breakthrough seizures. 2. Drug dependence. - Likely these seizures are withdrawal due to AED non compliance,unlikely a meningeal encephalitic process given the normal white blood cells, afebrile and no signs of meningeal irritation. 3. IV dependence. 4. Opiate dependence. Plan 1. Neuro checks q. 4 hourly. 2. Dilantin 100 milligrams three times a day. 3. Gabapentin 300 milligrams q 8 hourly. 4. Lamictal 25 milligrams twice a day. 5. Obtain Dilantin level next am. 6. Seizure precautions. 7. Continue supportive medical therapy. 8. DVT prophylaxis. 9. GI prophylaxis. 10. Discussed case with attending physician and RN Diagnosis/Plan: Subjective Subjective Comments No acute events reported No seizure activity reported Patient had one out of vomiting during the clinical encounter I made the RN aware to notify attending physician Dilantin level is therapeutic [11.1] Pending a follow up EEG Active Medications Current Medications Medications (Trade) Dose Ordered Sig/Andres Route Start Time Stop Time Status Last Admin (NS Flush) 2 ml UNSCH PRN IVF 04/16/17 13:45 04/16/17 13:48 Sodium Chloride 1,000 ml @ 100 mls/hr Q10H IV 04/16/17 16:50 04/19/17 14:46 (NS Flush) 2 ml UNSCH PRN IV FLUSH 04/16/17 17:00 (NS Flush) 2 ml BID IV FLUSH 04/16/17 21:00 04/18/17 09:19 (Narcan Inj) 0.4 mg UNSCH PRN IV PUSH 04/16/17 17:00 (Milk Of Magnesia Liq) 30 ml Q12H PRN PO 04/16/17 17:00 (Senokot) 17.2 mg Q12H PRN PO 04/16/17 17:00 (Dulcolax Supp) 10 mg DAILY PRN RECTAL 04/16/17 17:00 (Lactulose Liq) 30 ml DAILY PRN PO 04/16/17 17:00 (Ativan Inj) 1 mg Q15M PRN IV PUSH 04/16/17 23:15 (Neurontin) 300 mg TID PO 04/17/17 18:00 04/19/17 13:16 (LaMICtal) 25 mg Q12HR PO 04/17/17 14:30 04/19/17 08:08 (Dilantin) 100 mg Q8HR PO 04/18/17 14:15 04/19/17 13:16 (Xylocaine 2% Viscous) 15 ml Q4H PRN SWISH-SWAL 04/19/17 11:30 04/19/17 13:16 (Buprenorphine) 4 mg HS ONCE SL 04/19/17 21:00 04/19/17 21:01 Allergies Allergies Coded Allergies No Known Allergies (Unverified12/09/14) Review of Systems All other ROS: ROS reviewed as documented in chart Exam I&O / VS Vital Signs Date Time Temp Pulse Resp B/P (MAP) Pulse Ox O2 Delivery O2 Flow Rate FiO2 04/19/17 11:53 97.6 84 20 121/63 (82) 100 04/19/17 08:07 97.7 72 20 116/71 (86) 100 04/19/17 04:49 98.5 69 17 116/77 (90) 98 04/19/17 00:00 98.4 73 17 122/64 (83) 99 04/18/17 20:00 98.3 86 20 116/68 (84) 100 04/18/17 15:57 98.6 85 16 118/70 (86) 99 Exam Comments GENERAL: Awake, alert, less anxious SKIN: Various abrasions on her face and upper and lower extremities. HEAD, EYES, EARS, NOSE, THROAT: Normal vision, intact hearing. NECK: No neck stiffness. No carotid bruits. CARDIOVASCULAR: Regular rate and rhythm. RESPIRATORY: Clear to auscultation. GASTROINTESTINAL: Soft abdomen, not tender. MUSCULOSKELETAL: Moves extremities equally without cyanosis or clubbing. NEUROLOGIC: Awake, alert and oriented to time, person and place. No dysarthria. No dysphagia. Cranial nerves II through XII are grossly intact. Motor examination is grossly intact with give-way due to pain in the joints. Sensation is intact throughout. Finger-nose intact. Reflexes 2+ bilateral and symmetrical. Plantars are bilateral downgoing. PSYCHIATRIC: Anxious. Mildly withdrawn. Cooperative. No hallucinations. Objective Radiology Results Last 72 hours Impressions Liver Ultrasound 04/17/17 0000 Signed Impressions: Service Date/Time: Monday, April 17, 2017 10:08 - CONCLUSION: 1. Trace sludge in the dependent portion of the gallbladder. Otherwise, unremarkable sonographic appearance of the gallbladder. Jonatan Chen MD Micro and Labs Laboratory Tests Test 04/19/17 07:10 04/19/17 11:20 White Blood Count 4.6 Red Blood Count 4.01 Hemoglobin 10.1 Hematocrit 30.7 Mean Corpuscular Volume 76.7 Mean Corpuscular Hemoglobin 25.2 Mean Corpuscular Hemoglobin Concent 32.9 Red Cell Distribution Width 16.3 Platelet Count 216 Mean Platelet Volume 7.7 Neutrophils (%) (Auto) 66.3 Lymphocytes (%) (Auto) 25.3 Monocytes (%) (Auto) 5.1 Eosinophils (%) (Auto) 2.5 Basophils (%) (Auto) 0.8 Neutrophils # (Auto) 3.1 Lymphocytes # (Auto) 1.2 Monocytes # (Auto) 0.2 Eosinophils # (Auto) 0.1 Basophils # (Auto) 0.0 CBC Comment DIFF FINAL Differential Comment Blood Urea Nitrogen 5 Creatinine 0.50 Random Glucose 149 Total Protein 6.7 Albumin 3.5 Calcium Level 8.3 Alkaline Phosphatase 84 Aspartate Amino Transf (AST/SGOT) 74 Alanine Aminotransferase (ALT/SGPT) 52 Total Bilirubin 0.1 Sodium Level 141 Potassium Level 3.4 Chloride Level 110 Carbon Dioxide Level 22.2 Anion Gap 9 Estimat Glomerular Filtration Rate 146 Phenytoin (Dilantin) Level 11.0 Rafa Mayorga MD Apr 19, 2017 15:25
[2017-04-19 16:57] VITALS: BP 119/72; PULSE 89; RESP 20; TEMP 98.1; O2SAT 99
[2017-04-19] MEDS ORDERED: ONDANSETRON HCL 4 MG/2 ML VIAL IV PUSH PRN (17:00)
--- NOTE | 2017-04-19 18:06 | PD.CONS ---
HPI Chief Complaint Brought by [facility] -- gran mal seizure Substance use disorder and has been in my practice during and after on MAT with recent non compliance and dismissal Date Seen: Apr 19, 2017 Time Seen: 09:00 Travel History International Travel<30 Days: No Contact w/Intl Traveler<30Days: No Known Affected Area: No History of Present Illness HPI 27 yo swf P2 well known to me for DESTINY treatment during and after . Actually dismissed from practice for non compliance, but I am willing to see and help with efforts for residential treatment. History of opioid, amphetamine and gapapentin use. Has been off and on subutex and suboxone in my practice with help from [employer] and other service organizations. Has done 12 step programs and lost track of sponsors. Recently regained custody of her children. Recently reached out to me and asked to return to practice for MAT, which was denied. Found non responsive by police in her home after 911 call from her 4 year old daughter. I was called by her recovery network. Discussion with Dr. Post and Tosha indicated significant intoxication and that she was found by paramedics having a gran mal seizure. UDS at hospital suggests only amphetamines. No evidence of infection. I have not yet seen Pamella, but I do believe she has a significant seizure disorder, independent of her DESTINY and I was treating her with gabapentin and lamictal. Attempts to get eEG and outpatient neurologic evaluations, which I ordered several times, were thwarted by her lack of insurance. In her defense, she tried hard to get these appointments and her EEG in the past. I would like to see her get an EEG during this observation visit and see a neurologist who will follow up on an out patient basis. I will come in tomorrow morning to discuss mood stablization and MAT. 04/17/17 Pamella was walking to the bed from the bathroom when I arrived in [facility]. Her face is bruised and bloody. She has chipped a tooth and split her tongue. She behaves post ictal. I asked her what happened and she replied that "no one will give me my seizure medicine" For the record, since I dismissed Pamella from the practice, she has had no follow up care. I dismissed her after she was hospitalized at [facility] with a severe soft tissue infection in her hand, which I presumed was from a dirty needle. This was in December. She is speaking very softly and cannot remember the most basic things. She is oriented to place but not time. She does not remember how she got here. She is still caring for her children, having received custody back this summer. She cannot remember where she works. She acknowledges she has been using adderall that she cannot describe how she gets. She denies any opioids or IVDA. I do not see any fresh tracks. 04/19/17 I saw Pamella a 9:00 this am. She was sitting up eating breakfast. She remains subdued speaking softly and with delayed response. She still does not remember any of the events of the day that she was brought in by [facility]. She does complain of opioid withdrawal symptoms, now acknowledging that she has been obtaining various street opioids--usually dilaudid or oxy's but denies heroin. Presumption is very short acting, since UDS here was negative. She does acknowledge IV use as to why she developed the infection in her hand last December , but seems unable to give any time line about what and when she has taken since. She appears genuinely confused and non remembering. her pupils are dilated and equal. She is sweating and yawning. She has goose bumps. She is not picking at this time. Allergies-Medications (Allergen,Severity, Reaction): Coded Allergies: No Known Allergies (Unverified , 12/09/14) Home Meds Reported Medications Buspirone (Buspirone) 10 Mg Tab, 10 MG PO TID for Anxiety, TAB 0 Refills 08/03/16 Lamotrigine (Lamictal) 150 Mg Tab, 150 MG PO DAILY for Control Seizures, #60 TAB 0 Refills 08/03/16 Gabapentin (Gabapentin) 100 Mg Cap, 100 MG PO TID, #90 CAP 0 Refills 08/03/16 Buprenorphine-Naloxone Sublingual Film (Suboxone Sublingual Film) 2-0.5 Mg Film , 1 FILM SL, FILM Unique ID number required: 08/03/16 Physical Exam Vital Signs Date Time Temp Pulse Resp B/P (MAP) Pulse Ox O2 Delivery O2 Flow Rate FiO2 04/19/17 16:57 98.1 89 20 119/72 (88) 99 04/19/17 11:53 97.6 84 20 121/63 (82) 100 04/19/17 08:07 97.7 72 20 116/71 (86) 100 04/19/17 04:49 98.5 69 17 116/77 (90) 98 04/19/17 00:00 98.4 73 17 122/64 (83) 99 04/18/17 20:00 98.3 86 20 116/68 (84) 100 Narrative GENERAL: Well-nourished, well-developed patient. SKIN: Warm and dry. HEAD: Normocephalic and atraumatic. EYES: No scleral icterus. No injection or drainage. ENT: No nasal drainage noted. Mucous membranes pink. Airway patent. NECK: Supple, trachea midline. No JVD. CARDIOVASCULAR: Regular rate and rhythm without murmurs, gallops, or rubs. RESPIRATORY: Breath sounds equal bilaterally. No accessory muscle use. BREASTS: Bilateral exam showed no masses , no retractions, no nipple discharge. ABDOMEN/GI: Abdomen soft, non-tender, bowel sounds present, no rebound, no guarding Gravid to [-] weeks size Fundal Height: [-] GENITOURINARY: External Genitalia: intact and normal in appearance BUS glands: [-] Cervix: [-] Dilatation: [-] Effacement: [-] Station: [-] Presentation: [-] Membranes: [intact or ruptured] Uterine Contractions: [-] FHT's: Category: [-] Baseline: [-] Reactive: [-] Variability: [-] Decels: [-] EXTREMITIES: No cyanosis or edema. BACK: Nontender without obvious deformity. No CVA tenderness. NEUROLOGICAL: Awake and alert. Motor and sensory grossly within normal limits. Five out of 5 muscle strength in all muscle groups. Normal speech. Data Data Orders Orders Physician Name Changes (04/19/17 ) Lidocaine 2% Viscous (Xylocaine 2% Visco (04/19/17 11:30) Electrocardiogram (04/19/17 ) Eeg Study (04/19/17 ) Buprenorphine (Buprenorphine) (04/19/17 14:00) Buprenorphine (Buprenorphine) (04/19/17 21:00) ^ Shower (04/19/17 16:34) Ondansetron Inj (Zofran Inj) (04/19/17 17:00) Labs Laboratory Tests Test 04/19/17 07:10 04/19/17 11:20 White Blood Count 4.6 Red Blood Count 4.01 Hemoglobin 10.1 Hematocrit 30.7 Mean Corpuscular Volume 76.7 Mean Corpuscular Hemoglobin 25.2 Mean Corpuscular Hemoglobin Concent 32.9 Red Cell Distribution Width 16.3 Platelet Count 216 Mean Platelet Volume 7.7 Neutrophils (%) (Auto) 66.3 Lymphocytes (%) (Auto) 25.3 Monocytes (%) (Auto) 5.1 Eosinophils (%) (Auto) 2.5 Basophils (%) (Auto) 0.8 Neutrophils # (Auto) 3.1 Lymphocytes # (Auto) 1.2 Monocytes # (Auto) 0.2 Eosinophils # (Auto) 0.1 Basophils # (Auto) 0.0 CBC Comment DIFF FINAL Differential Comment Blood Urea Nitrogen 5 Creatinine 0.50 Random Glucose 149 Total Protein 6.7 Albumin 3.5 Calcium Level 8.3 Alkaline Phosphatase 84 Aspartate Amino Transf (AST/SGOT) 74 Alanine Aminotransferase (ALT/SGPT) 52 Total Bilirubin 0.1 Sodium Level 141 Potassium Level 3.4 Chloride Level 110 Carbon Dioxide Level 22.2 Anion Gap 9 Estimat Glomerular Filtration Rate 146 Phenytoin (Dilantin) Level 11.0 MDM Medical Record Reviewed: Yes Interpretation(s) EEG x 2 abnormal confirming seizure activity. It is not clear if the siezure disorder developed independently of her substance use disorder. But her memory , mood, mentation are highly different in the past year and she has attempted to get neurologic consultation for ;prior seizures. I am concerned there is a chronic, hopefully not permanent change in function. It is probable that DESTINY has exacerbated this. Her COWs score today is about 12-15 which is mild, but she would likely benefit from resumption of buprenorphine. This is problematic on an outpatient basis, as she is not compliant with visits, UDS or medications. It is quite possible that this is not behavior stemming from drug seeking or drug use, but a true decline in capacity. I don't know if she is capable of normal ADLs in her current condition. I am starting 4 mg burpenorphine up to QID. I can be reached at [phone] Admitting diagnosis: Seizure disorder vs OD Condition: Stable Tiarra London MD Apr 19, 2017 18:06
--- NOTE | 2017-04-19 19:01 | MG ---
cc: ABDIRIZAK VILLAFUERTE M.D. Lab No: Date: 04/19/2017 Age: Sex: F Race: REQUESTING PHYSICIAN Dr. Mayorga An EEG was obtained on this 27-year-old patient being evaluated for unresponsiveness, possible seizures. MEDICATIONS 1. Dilantin. 2. Lamictal. 3. Neurontin. DESCRIPTION The patient is awake and asleep. The EEG shows a mixture of rhythms. There is a lot of theta and some delta rhythms intermixed with beta activity. The patient seems asleep but intermittently awake with some eye movement artifact. There is a lack of anymore sustained alpha activity even when the patient appears awake. Photic stimulation disclosed no significant change. Hyperventilation was unremarkable. INTERPRETATION Moderately severe abnormal EEG because of generalized slowing suggestive of a moderately severe diffuse disturbance of cerebral function. No epileptiform features present. MD OLYA Lyons/KK /6:30 PM /6:49 PM
[2017-04-19 20:30] VITALS: BP 117/78; PULSE 84; RESP 16; TEMP 98.4; O2SAT 98
[2017-04-19] MEDS ORDERED: PILL SPLITTER OTHER PRN (21:30)
[2017-04-20] VITALS: BP 154/82; PULSE 90; RESP 18; TEMP 98.4; O2SAT 95
[2017-04-20] MEDS: SODIUM CHLOR 0.9% 1000 ML INJ 1,000 ML IV SCH ×2 (00:50→09:00)
[2017-04-20 04:00] VITALS: BP 115/60; PULSE 74; RESP 18; TEMP 97.1; O2SAT 100
[2017-04-20] MEDS: PHENYTOIN SODIUM 100 MG CAP PO SCH ×2 (06:17→13:00)
[2017-04-20] MEDS: lamoTRIgine 25 MG TAB PO SCH (08:54)
[2017-04-20] MEDS: BUPRENORPHINE/NALOXONE 8 MG/2 MG SUBLINGUAL TAB SL SCH ×2 (08:54→13:00)
[2017-04-20] MEDS: GABAPENTIN 300 MG CAP PO SCH ×2 (08:54→13:00)
[2017-04-20] MEDS: SODIUM CHLORIDE 0.9% FLUSH 10 ML FLUSH IV FLUSH SCH (08:55)
[2017-04-20] MEDS: LIDOCAINE VISCOUS 2% SOLN 15 ML UDC SWISH-SWAL PRN (08:58)
--- NOTE | 2017-04-20 09:01 | HHI.PR ---
Review/Management Diagnosis 1. Breakthrough seizures. 2. Drug dependence. - Likely these seizures are withdrawal due to AED non compliance,unlikely a meningeal encephalitic process given the normal white blood cells, afebrile and no signs of meningeal irritation. 3. IV dependence. 4. Opiate dependence. Plan - Stable non focal neurologic exam - Follow up EEG is unremarkable with no evidence of an ictal activity or electrographic seizures - Dilantin 100 milligrams three times a day. - Gabapentin 300 milligrams q 8 hourly. - Lamictal 25 milligrams twice a day. - Seizure precautions. - Continue supportive medical therapy. - DVT prophylaxis. - GI prophylaxis. - Discussed case with attending physician Dr. Arevalo & RN - Follow up outpatient neurology - Please call for questions Diagnosis/Plan: Subjective Subjective Comments No acute events reported No reported seizures Patient with no new complaint, feels better Active Medications Current Medications Medications (Trade) Dose Ordered Sig/Andres Route Start Time Stop Time Status Last Admin Sodium Chloride 1,000 ml @ 100 mls/hr Q10H IV 04/16/17 16:50 04/19/17 14:46 (NS Flush) 2 ml UNSCH PRN IV FLUSH 04/16/17 17:00 (NS Flush) 2 ml BID IV FLUSH 04/16/17 21:00 04/18/17 09:19 (Narcan Inj) 0.4 mg UNSCH PRN IV PUSH 04/16/17 17:00 (Milk Of Magnesia Liq) 30 ml Q12H PRN PO 04/16/17 17:00 (Senokot) 17.2 mg Q12H PRN PO 04/16/17 17:00 (Dulcolax Supp) 10 mg DAILY PRN RECTAL 04/16/17 17:00 (Lactulose Liq) 30 ml DAILY PRN PO 04/16/17 17:00 (Ativan Inj) 1 mg Q15M PRN IV PUSH 04/16/17 23:15 (Neurontin) 300 mg TID PO 04/17/17 18:00 04/19/17 17:20 (LaMICtal) 25 mg Q12HR PO 04/17/17 14:30 04/19/17 21:40 (Dilantin) 100 mg Q8HR PO 04/18/17 14:15 04/20/17 06:17 (Xylocaine 2% Viscous) 15 ml Q4H PRN SWISH-SWAL 04/19/17 11:30 04/19/17 13:16 (Zofran Inj) 4 mg Q6H PRN IV PUSH 04/19/17 17:00 (Buprenorphine-Naloxone 8-2 Mg) 0.5 tab QID SL 04/20/17 09:00 (Pill Splitter) 1 ea UNSCH PRN OTHER 04/19/17 21:30 Allergies Allergies Coded Allergies No Known Allergies (Unverified12/09/14) Review of Systems All other ROS: ROS reviewed as documented in chart Exam I&O / VS Vital Signs Date Time Temp Pulse Resp B/P (MAP) Pulse Ox O2 Delivery O2 Flow Rate FiO2 04/20/17 04:00 97.1 74 18 115/60 (78) 100 04/20/17 00:00 98.4 90 18 154/82 (106) 95 04/19/17 20:30 98.4 84 16 117/78 (91) 98 04/19/17 16:57 98.1 89 20 119/72 (88) 99 04/19/17 11:53 97.6 84 20 121/63 (82) 100 Exam Comments GENERAL: Awake, alert, less anxious SKIN: Various abrasions on her face and upper and lower extremities. HEAD, EYES, EARS, NOSE, THROAT: Normal vision, intact hearing. NECK: No neck stiffness. No carotid bruits. CARDIOVASCULAR: Regular rate and rhythm. RESPIRATORY: Clear to auscultation. GASTROINTESTINAL: Soft abdomen, not tender. MUSCULOSKELETAL: Moves extremities equally without cyanosis or clubbing. NEUROLOGIC: Awake, alert and oriented to time, person and place. No dysarthria. No dysphagia. Cranial nerves II through XII are grossly intact. Motor examination is grossly intact with give-way due to pain in the joints. Sensation is intact throughout. Finger-nose intact. Reflexes 2+ bilateral and symmetrical. Plantars are bilateral downgoing. PSYCHIATRIC: Anxious. Mildly withdrawn. Cooperative. No hallucinations. Objective Micro and Labs Laboratory Tests Test 04/19/17 11:20 Blood Urea Nitrogen 5 Creatinine 0.50 Random Glucose 149 Total Protein 6.7 Albumin 3.5 Calcium Level 8.3 Alkaline Phosphatase 84 Aspartate Amino Transf (AST/SGOT) 74 Alanine Aminotransferase (ALT/SGPT) 52 Total Bilirubin 0.1 Sodium Level 141 Potassium Level 3.4 Chloride Level 110 Carbon Dioxide Level 22.2 Anion Gap 9 Estimat Glomerular Filtration Rate 146 Phenytoin (Dilantin) Level 11.0 Rafa Mayorga MD Apr 20, 2017 09:01
--- NOTE | 2017-04-20 10:34 | HHI.PR ---
Subjective Remarks Follow up for seizure activity. Patient is currently doing well. Denies any chest pain, shortness of breath, fever or chills. She has not had any further seizure activities. Neurologic clear for discharge. Later in the morning, RN received a call from patient's mother. I also talked to his mother. Patient recently lost custody of her two children. Apparently she has been testing her mom stating that she wants to kill herself. I went to talk to patient who denies such interventions. She denies any suicidal or homicidal ideations. Objective Vitals Vital Signs Date Time Temp Pulse Resp B/P (MAP) Pulse Ox O2 Delivery O2 Flow Rate FiO2 04/20/17 04:00 97.1 74 18 115/60 (78) 100 04/20/17 00:00 98.4 90 18 154/82 (106) 95 04/19/17 20:30 98.4 84 16 117/78 (91) 98 04/19/17 16:57 98.1 89 20 119/72 (88) 99 04/19/17 11:53 97.6 84 20 121/63 (82) 100 I/O 04/19/17 04/19/17 04/19/17 04/20/17 04/20/17 04/20/17 07:00 15:00 23:00 07:00 15:00 23:00 Intake Total 240 ml 940 ml 360 ml Balance 240 ml 940 ml 360 ml Intake Oral 240 ml 940 ml 360 ml # Voids 3 6 3 # Bowel Movements 1 Result Diagram: 04/19/17 0710 04/19/17 1120 Imaging Last Impressions Liver Ultrasound 04/17/17 0000 Signed Impressions: Service Date/Time: Monday, April 17, 2017 10:08 - CONCLUSION: 1. Trace sludge in the dependent portion of the gallbladder. Otherwise, unremarkable sonographic appearance of the gallbladder. Jonatan Chen MD Maxillofacial CT 04/16/17 0000 Signed Impressions: Service Date/Time: Sunday, April 16, 2017 18:07 - CONCLUSION: Acute fracture involving the right nasal bone. David Vizcarra MD Head CT 04/16/17 0000 Signed Impressions: Service Date/Time: Sunday, April 16, 2017 18:05 - CONCLUSION: No acute disease. David Vizcarra MD Objective Remarks GENERAL: Alert, Oriented x 3, NAD. SKIN: Warm and dry. HEAD: Normocephalic. EYES: No scleral icterus. No injection or drainage. NECK: Supple, trachea midline. No JVD or lymphadenopathy. CARDIOVASCULAR: Regular rate and rhythm without murmurs, gallops, or rubs. RESPIRATORY: Breath sounds equal bilaterally. No accessory muscle use. GASTROINTESTINAL: Abdomen soft, non-tender, nondistended. MUSCULOSKELETAL: No cyanosis, or edema. BACK: Nontender without obvious deformity. No CVA tenderness. Procedures EEG 04/18/2017 This is an abnormal awake and drowsy EEG. The background activity of slowing may indicate an encephalopathy. There were intermittent episodes of brief electrographic activity lasting between 1-4 seconds with periodic sharp waves appearing bilaterally. The EEG is much improved compared to the previous EEG. Clinical correlation is recommended. EEG 04/17/2017 This is an abnormal EEG with evidence of epileptiform discharges sharp and slow wave and runs of change of rhythmicity that indicates electrographic seizures generalized throughout the recording. The results are relayed to the RN and orders to treat the seizures have been placed. A/P Problem List: (1) Seizures ICD Code: R56.9 - Unspecified convulsions Status: Acute Assessment and Plan Ms. Collazo is a 27 year old female with a history of seizure disorder who was admitted after she had seizure activity and was unresponsive. Her 4 year old called 911. - Seizure activity - Neurology on board. - Currently patient is on Phenytoin 100mg Q8hrs, Lamictal 25mg Q12hrs - Continue Gabapentin 300mg TID. - Lorazepam PRN for acute seizure. - EEG from 04/18/2017 shows improvement. EEG from 04/19/2017 shows much improved findings. - Neurologically her for discharge. - Left lateral tongue injury - Due to seizure. - Suicidal ideations - Discussed with patient's mother. Patient has been texturing her mother stating that she will kill herself. - Patient herself denies any suicidal or homicidal ideations. - She is under a lot of stress due to losing custody of her children. - We will Rodriguez act patient. Arrange a sitter in the room. STAT Psychiatry consult. Full code. Ambulation. SCDs. Discharge plan: Patient is medically cleared for discharge. Waiting for psychiatry evaluation. Tanner Arevalo DO Apr 20, 2017 10:34 am
--- NOTE | 2017-04-20 11:36 | EKG ---
Date Performed: 04/19/2017 Time Performed: 13:29:28 PTAGE: 27 years EKG: Sinus rhythm POSSIBLE RIGHT VENTRICULAR CONDUCTION DELAY BORDERLINE ECG NO PREVIOUS TRACING DOCTOR: Alexandre Araujo Interpretating Date/Time 04/20/2017 11:35:10
[2017-04-20] MEDS ORDERED: NEUR300C PO (13:10)
[2017-04-20] MEDS ORDERED: DILA100C PO (13:10)
[2017-04-20] MEDS ORDERED: LAMO25 PO (13:10)
--- NOTE | 2017-04-20 13:12 | HHI.DS ---
Discharge Summary Admission Date Apr 18, 2017 at 1:49 pm Discharge Date: Apr 20, 2017 Admitting Diagnosis Seizure disorder vs OD (1) Seizures ICD Code: R56.9 - Unspecified convulsions Status: Acute Procedures EEG 04/18/2017 This is an abnormal awake and drowsy EEG. The background activity of slowing may indicate an encephalopathy. There were intermittent episodes of brief electrographic activity lasting between 1-4 seconds with periodic sharp waves appearing bilaterally. The EEG is much improved compared to the previous EEG. Clinical correlation is recommended. EEG 04/17/2017 This is an abnormal EEG with evidence of epileptiform discharges sharp and slow wave and runs of change of rhythmicity that indicates electrographic seizures generalized throughout the recording. The results are relayed to the RN and orders to treat the seizures have been placed. Brief History - From Admission 27-year-old female with history of IV drug use, history of seizure disorder who was found unresponsive by her 4-year-old child, who called 911. Patient indicates that she can talk nodding, however refuses to talk, as indicated by shaking her head. History is obtained from discussion with ER, as well as chart review. CBC/BMP: 04/19/17 0710 04/19/17 1120 Significant Findings Laboratory Tests Test 04/17/17 20:52 04/18/17 03:40 04/19/17 07:10 04/19/17 11:20 Hemoglobin 10.1 GM/DL (11.6-15.3) Hematocrit 30.7 % (35.0-46.0) Mean Corpuscular Volume 76.7 FL (80.0-100.0) Mean Corpuscular Hemoglobin 25.2 PG (27.0-34.0) Blood Urea Nitrogen 5 MG/DL (7-18) Random Glucose 149 MG/DL (74-106) Calcium Level 8.3 MG/DL (8.5-10.1) Aspartate Amino Transf (AST/SGOT) 74 U/L (15-37) Total Bilirubin 0.1 MG/DL (0.2-1.0) Potassium Level 3.4 MEQ/L (3.5-5.1) Chloride Level 110 MEQ/L (98-107) Imaging Last Impressions Liver Ultrasound 04/17/17 0000 Signed Impressions: Service Date/Time: Monday, April 17, 2017 10:08 - CONCLUSION: 1. Trace sludge in the dependent portion of the gallbladder. Otherwise, unremarkable sonographic appearance of the gallbladder. Jonatan Chen MD Maxillofacial CT 04/16/17 0000 Signed Impressions: Service Date/Time: Sunday, April 16, 2017 18:07 - CONCLUSION: Acute fracture involving the right nasal bone. David Vizcarra MD Head CT 04/16/17 0000 Signed Impressions: Service Date/Time: Sunday, April 16, 2017 18:05 - CONCLUSION: No acute disease. David Vizcarra MD PE at Discharge GENERAL: Alert, Oriented x 3, NAD. SKIN: Warm and dry. HEAD: Normocephalic. EYES: No scleral icterus. No injection or drainage. NECK: Supple, trachea midline. No JVD or lymphadenopathy. CARDIOVASCULAR: Regular rate and rhythm without murmurs, gallops, or rubs. RESPIRATORY: Breath sounds equal bilaterally. No accessory muscle use. GASTROINTESTINAL: Abdomen soft, non-tender, nondistended. MUSCULOSKELETAL: No cyanosis, or edema. BACK: Nontender without obvious deformity. No CVA tenderness. Pt update on day of discharge Follow up for seizure activity. Patient is currently doing well. Denies any chest pain, shortness of breath, fever or chills. She has not had any further seizure activities. Neurologic clear for discharge. Later in the morning, RN received a call from patient's mother. I also talked to his mother. Patient recently lost custody of her two children. Apparently she has been testing her mom stating that she wants to kill herself. I went to talk to patient who denies such interventions. She denies any suicidal or homicidal ideations. Hospital Course Ms. Collazo is a 27 year old female with a history of seizure disorder who was admitted after she had seizure activity and was unresponsive. Her 4 year old called 911. - Seizure activity - Neurology on board. - Currently patient is on Phenytoin 100mg Q8hrs, Lamictal 25mg Q12hrs - Continue Gabapentin 300mg TID. - Lorazepam PRN for acute seizure. - EEG from 04/18/2017 shows improvement. EEG from 04/19/2017 shows much improved findings. - Neurologically her for discharge. - Left lateral tongue injury - Due to seizure. - Suicidal ideations - Discussed with patient's mother. Patient has been texturing her mother stating that she will kill herself. - Patient herself denies any suicidal or homicidal ideations. - She is under a lot of stress due to losing custody of her children. - We Rodriguez acted patient. Arrange a sitter in the room. STAT Psychiatry consult. - Discussed with Psychiatry. Patient will need in-patient psychiatry admission. Full code. Ambulation. SCDs. Discharge plan: Will d/c patient to Psychiatry. Pt Condition on Discharge: Good Discharge Disposition: Disc to Psych Care Fac Discharge Time: > 30 minutes Discharge Instructions DIET: Follow Instructions for: As Tolerated, No Restrictions Activities you can perform: Regular-No Restrictions New Medications: Gabapentin (Neurontin) 300 Mg Cap 300 MG PO TID for Seizure Control, #90 CAP Lamotrigine (Lamictal) 25 Mg Tab 25 MG PO Q12HR for Seizure Control, #60 TAB Phenytoin Extended (Dilantin) 100 Mg Cap 100 MG PO Q8HR for Seizure Control, #90 CAP Continued Medications: Buprenorphine-Naloxone Sublingual Film (Suboxone Sublingual Film) 2-0.5 Mg Film 1 FILM SL, FILM Unique ID number required: Discontinued Medications: Buspirone (Buspirone) 10 Mg Tab 10 MG PO TID for Anxiety, TAB 0 Refills Gabapentin (Gabapentin) 100 Mg Cap 100 MG PO TID, #90 CAP 0 Refills Lamotrigine (Lamictal) 150 Mg Tab 150 MG PO DAILY for Control Seizures, #60 TAB 0 Refills Tanner Arevalo DO Apr 20, 2017 13:12
--- NOTE | 2017-04-20 13:34 | HHI.PYPN ---
Subjective Remarks The patient was seen today for psychiatric reevaluation as per request of Dr Berg, he contracted the patient after she expressed suicidal ideation to her motherr. Seen by Dr. Lamar 04/17/2017: "currently has no depressive manic or psychotic symptoms at this time but has an ongoing substance use disorder. Patient at this time does not require any acute psychiatric intervention but would benefit from intensive inpatient rehabilitation program for substance use as well as continued outpatient follow-up for depression. Patient at this time poses no risk for intentional self-harm or harm to others and psychiatrically cleared to continue recommendations as per primary medical team". On psychiatric evaluation today the patient is irritable, oppositional, at the beginning refusing to provide information for psychiatric follow-up. But, with redirection becomes more open. She says that during this weekend her two kids were removed from her custody. She says that her kids are her only reason to live. Yesterday with her mother informed her she is stated that she wanted to and to kill herself. She reports amphetamines abuse, but in the past she has abused many other drugs. She refuses to elaborate about her history of drug abuse. At this moment the patient denies suicidal and homicidal ideation, she denies visual and auditory hallucinations, but the patient seems to be very distressed and objectively depressed. Protective factors are identified at this moment. She is oriented times 3, no attention deficit, no fluctuation of consciousness. Review of Systems Psychiatric: COMPLAINS OF: Depression Except as stated in HPI: all other systems reviewed are Neg Mental Status Examination Appearance: Disheveled Consciousness: Alert Orientation: Person, Place Speech: Other (low-volume) Language: Adequate Fund of Knowledge: Inadequate Attention and Concentration: Inadequate Memory: Unremarkable Mood: Other ("okay") Affect: Irritable, Other (restricted) Thought Process & Associations: Intact, Linear Thought Content: Appropriate Hallucination Type: None Delusion Type: None Suicidal Ideation: Yes Suicidal Plan: No Suicidal Intention: No Homicidal Ideation: No Homicidal Plan: No Homicidal Intention: No Insight: Poor Judgment: Poor Results Vitals/IOs Vital Signs Date Time Temp Pulse Resp B/P (MAP) Pulse Ox O2 Delivery O2 Flow Rate FiO2 04/20/17 04:00 97.1 74 18 115/60 (78) 100 04/16/17 14:30 Room Air Intake and Output 04/20/17 04/20/17 04/21/17 08:00 16:00 00:00 Intake Total 600 ml Balance 600 ml Assessment & Plan Problem List: (1) Polysubstance dependence ICD Codes: F19.20 - Other psychoactive substance dependence, uncomplicated Assessment & Plan: Patient was seen for psychiatric reevaluation after expressing suicidal intentions to her mother. Patient is distressed, expressed depression, intrusive thoughts, preoccupation after her kids were removed from her custody. He is unable to contract for safety at this moment. Will be transferred to psychiatry for stabilization and safety. Assessment & Plan Estimated LOS: days Justification for Cont. Inpt. Patient needs psychiatric hospitalization for stabilization and safety. Javier Beltran MD Apr 20, 2017 13:34
== END 2017-04-20 16:08 | DRG 101 ==
LOC: NEPC 13:18 → NEDA 16:48 → NEPGCP 18:11 → OBSVTOIN 04-18 13:49 → N05B 04-18 19:08
PROVIDERS: ADMIT Hospitalist; ATTEND Hospitalist
DX: G40.909 Epilepsy, unspecified, not intractable, without status epilepticus (principal); N17.9 Acute kidney failure, unspecified; R45.851 Suicidal ideations; H57.04 Mydriasis; S02.2XXA Fracture of nasal bones, initial encounter for closed fracture; F11.23 Opioid dependence with withdrawal; J45.909 Unspecified asthma, uncomplicated; Z72.0 Tobacco use; Z91.19 Patient's noncompliance with other medical treatment and regimen
CPT/HCPCS: 70450; 70486; 76705; 80053; 80185; 80307; 81001; 82550; 82552; 84703; 85025; 86703; 86803; 87340; 93005; 95819; 96361; 96365; G0378; J1165; J7030

== ENCOUNTER 2017-04-20 15:27 | Inpatient (IN) | payer OTHER ==
[~2017-04-20 15:27] MED LIST changes: +DILA100C PO; +LAMO25 PO; +NEUR300C PO
[2017-04-20 20:10] VITALS: BP 120/70; PULSE 77; RESP 17; TEMP 97.7; O2SAT 90
[2017-04-20] MEDS: BUPRENORPHINE/NALOXONE 8 MG/2 MG SUBLINGUAL TAB SL SCH (21:00)
[2017-04-20] MEDS: GABAPENTIN 300 MG CAP PO SCH (21:23)
[2017-04-21 05:57] VITALS: BP 110/63; PULSE 76; RESP 17; TEMP 98.1; O2SAT 100
--- NOTE | 2017-04-21 07:28 | PD.CONS ---
HPI Chief Complaint reported suicidal ideations on fifth floor during hospitalization for seizures and substance abuse Date Seen: Apr 21, 2017 Time Seen: 07:18 Travel History International Travel<30 Days: No Contact w/Intl Traveler<30Days: No Known Affected Area: No History of Present Illness HPI 27 yo swf P2 well known to me through pregnancies and attempts to address opioid addiction and depression with MAT and SSI's over last several years. Actually discharged from my practice in December for non compliance. 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 I do not think she is someone who at this time can care for herself or her children and am highly concerned about her continued treatment and ADLs upon discharge. She had a gran mal seizure on Wednesday and came to ED by [facility] Please review records from this hospitalization. EEG highly abnormal. Started on seizure medications and I resumed her suboxone and gabapentin as per my prior relationship. I do not know what the anticipated discharge diagnosis and condition were yesterday -- only that she anticipated discharge and texted her mother that she was going to kill herself and the mom reported this to the nurse and she was patel acted. She does not have orders yet for this floor and I only renewed the gabapentin and suboxone. She has case workers and has worked with [facility]. She was given back her children this summer, but had lost her job and resumed opioid and amphetamine use this fall. She was in withdrawal when I assessed her the second time in [facility] [facility]) and started on her old dose after acknowledging use. She has extreme change in mood, mentation and memory. She does not appear to process questions easily. Physically she is cachectic, she is picking and bruised from seizure. She has chipped her tooth. Allergies-Medications (Allergen,Severity, Reaction): Coded Allergies: No Known Allergies (Unverified , 12/09/14) Home Meds Active Scripts Lamotrigine (Lamictal) 25 Mg Tab, 25 MG PO Q12HR for Seizure Control, #60 TAB Prov:Tanner Arevalo DO 04/20/17 Gabapentin (Neurontin) 300 Mg Cap, 300 MG PO TID for Seizure Control, #90 CAP Prov:Tanner Arevalo DO 04/20/17 Phenytoin Extended (Dilantin) 100 Mg Cap, 100 MG PO Q8HR for Seizure Control, # 90 CAP Prov:Tanner Arevalo DO 04/20/17 Reported Medications Buprenorphine-Naloxone Sublingual Film (Suboxone Sublingual Film) 2-0.5 Mg Film , 1 FILM SL, FILM Unique ID number required: 08/03/16 Discontinued Reported Medications Buspirone (Buspirone) 10 Mg Tab, 10 MG PO TID for Anxiety, TAB 0 Refills 08/03/16 Lamotrigine (Lamictal) 150 Mg Tab, 150 MG PO DAILY for Control Seizures, #60 TAB 0 Refills 08/03/16 Gabapentin (Gabapentin) 100 Mg Cap, 100 MG PO TID, #90 CAP 0 Refills 08/03/16 Physical Exam Vital Signs Date Time Temp Pulse Resp B/P (MAP) Pulse Ox O2 Delivery O2 Flow Rate FiO2 04/21/17 05:57 98.1 76 17 110/63 (79) 100 04/20/17 20:10 97.7 77 17 120/70 (87) 90 Narrative GENERAL: Well-nourished, well-developed patient. SKIN: Warm and dry. HEAD: Normocephalic and atraumatic. EYES: No scleral icterus. No injection or drainage. ENT: No nasal drainage noted. Mucous membranes pink. Airway patent. NECK: Supple, trachea midline. No JVD. CARDIOVASCULAR: Regular rate and rhythm without murmurs, gallops, or rubs. RESPIRATORY: Breath sounds equal bilaterally. No accessory muscle use. BREASTS: Bilateral exam showed no masses , no retractions, no nipple discharge. ABDOMEN/GI: Abdomen soft, non-tender, bowel sounds present, no rebound, no guarding Gravid to [-] weeks size Fundal Height: [-] GENITOURINARY: External Genitalia: intact and normal in appearance BUS glands: [-] Cervix: [-] Dilatation: [-] Effacement: [-] Station: [-] Presentation: [-] Membranes: [intact or ruptured] Uterine Contractions: [-] FHT's: Category: [-] Baseline: [-] Reactive: [-] Variability: [-] Decels: [-] EXTREMITIES: No cyanosis or edema. BACK: Nontender without obvious deformity. No CVA tenderness. NEUROLOGICAL: Awake and alert. Motor and sensory grossly within normal limits. Five out of 5 muscle strength in all muscle groups. Normal speech. Data Data Orders Orders Diet Regular Basic (04/20/17 Dinner) Family Notification PRN (04/20/17 18:07) Buprenorphine-Naloxone 8-2 Mg (Buprenorp (04/20/17 21:00) Gabapentin (Neurontin) (04/20/17 21:00) Diet Regular Basic (04/21/17 Breakfast) Physician Name Changes (04/21/17 ) MDM Interpretation(s) At risk 27 year with depression and suicidal ideation seizure disorder -- not adequately defined and addressed with no follow up in place substance use disorder-- active addiction encephalopathy I am out of my scope with these diagnoses (other than addiction disorder) and am available for that issue and continuity. Please call me at [phone]. Tiarra Vega MD Apr 21, 2017 07:28
[2017-04-21] MEDS: GABAPENTIN 300 MG CAP PO SCH ×3 (08:19→16:58)
[2017-04-21] MEDS: BUPRENORPHINE/NALOXONE 8 MG/2 MG SUBLINGUAL TAB SL SCH ×4 (08:20→21:00)
[2017-04-21] MEDS: lamoTRIgine 25 MG TAB PO SCH ×2 (13:00→21:12)
--- NOTE | 2017-04-21 13:47 | HHI.HP ---
Provisional Diagnosis Admission Date Apr 20, 2017 at 16:10 [place]. Adjustment disorder with depressed mood Certification of Person's Competence To Provide Express and Informed Consent I have personally examined Pamella Collazo , a person being served at [facility] on, Apr 21, 2017 13:46. Express and informed consent means consent voluntarily given in writing, by a competent person, after sufficient explanation and disclosure of the subject matter involved to enable the person to make a knowing and willful decision without any element of force, fraud, deceit, duress, or other form of constraint or coercion. This person is 18 years of age or older, is not now known to be incompetent to consent to treatment with a guardian advocate, and does not have a health care surrogate or proxy currently making medical treatment decisions. I have found this person to be one of the following: [] Competent to provide express and informed consent, as defined above, for voluntary admission to this facility and is competent to provide express and informed consent for treatment. He/she has the consistent capacity to make well reasoned, willful, and knowing decisions concerning his or her medical or mental health treatment. The person fully and consistently understands the purpose of the admission for examination/placement and is fully capable of personally exercising all rights [place] [x] Incompetent to provide express and informed consent to voluntary admission, and this is incompetent to provide express and informed consent to treatment. The person must be transferred to involuntary status and a petition for a guardian advocate filed with the Circuit Court. [] Refusing to provide express and informed consent to voluntary admission but is competent to provide express and informed consent for treatment. The person must be discharged or transferred to involuntary status. Form shall be completed within 24 hours of a person's arrival at the receiving facility and filed in the clinical record of each person: 1. Admitted on a voluntary basis 2. Permitted to provide express and informed consent to his/her own treatment 3. Allowed to transfer from involuntary to voluntary status 4. Prior to permitting a person to consent to his or her own treatment after having been previously found incompetent to consent to treatment. History of Present Illness Capacity: Has Capacity (for medications only) Psych Chief Complaint: Suicidal ideations Past Family Social History Coded Allergies: No Known Allergies (Unverified , 12/09/14) Active Scripts Lamotrigine (Lamictal) 25 Mg Tab, 25 MG PO Q12HR for Seizure Control, #60 TAB Prov:Tanner Arevalo DO 04/20/17 Gabapentin (Neurontin) 300 Mg Cap, 300 MG PO TID for Seizure Control, #90 CAP Prov:Tanner Arevalo DO 04/20/17 Phenytoin Extended (Dilantin) 100 Mg Cap, 100 MG PO Q8HR for Seizure Control, # 90 CAP Prov:Tanner Arevalo DO 04/20/17 Reported Medications Buprenorphine-Naloxone Sublingual Film (Suboxone Sublingual Film) 2-0.5 Mg Film , 1 FILM SL, FILM Unique ID number required: 08/03/16 Discontinued Reported Medications Buspirone (Buspirone) 10 Mg Tab, 10 MG PO TID for Anxiety, TAB 0 Refills 08/03/16 Lamotrigine (Lamictal) 150 Mg Tab, 150 MG PO DAILY for Control Seizures, #60 TAB 0 Refills 08/03/16 Gabapentin (Gabapentin) 100 Mg Cap, 100 MG PO TID, #90 CAP 0 Refills 08/03/16 Current Medications Medications (Trade) Dose Ordered Sig/Andres Route Start Time Stop Time Status Last Admin (Buprenorphine-Naloxone 8-2 Mg) 0.5 tab QID SL 04/20/17 21:00 04/21/17 12:49 (Neurontin) 300 mg TID PO 04/21/17 18:00 (LaMICtal) 25 mg Q12HR PO 04/21/17 13:00 04/21/17 13:00 (Dilantin) 100 mg Q8HR PO 04/21/17 14:00 Physical Exam Vital Signs Vital Signs Date Time Temp Pulse Resp B/P (MAP) Pulse Ox O2 Delivery O2 Flow Rate FiO2 04/21/17 05:57 98.1 76 17 110/63 (79) 100 Assessment & Plan Problem List: (1) Adjustment disorder with depressed mood ICD Codes: F43.21 - Adjustment disorder with depressed mood Assessment & Plan Estimated LOS: King Hastings MD Apr 21, 2017 13:47
[2017-04-21] MEDS: PHENYTOIN SODIUM 100 MG CAP PO SCH ×2 (14:00→21:12)
--- NOTE | 2017-04-21 15:41 | HHI.HP ---
Provisional Diagnosis Admission Date Apr 20, 2017 at 16:10 [place] I. Adjustment disorder with depressed mood Certification of Person's Competence To Provide Express and Informed Consent I have personally examined Pamella Collazo , a person being served at [facility] on, Apr 21, 2017 15:02. Express and informed consent means consent voluntarily given in writing, by a competent person, after sufficient explanation and disclosure of the subject matter involved to enable the person to make a knowing and willful decision without any element of force, fraud, deceit, duress, or other form of constraint or coercion. This person is 18 years of age or older, is not now known to be incompetent to consent to treatment with a guardian advocate, and does not have a health care surrogate or proxy currently making medical treatment decisions. I have found this person to be one of the following: [] Competent to provide express and informed consent, as defined above, for voluntary admission to this facility and is competent to provide express and informed consent for treatment. He/she has the consistent capacity to make well reasoned, willful, and knowing decisions concerning his or her medical or mental health treatment. The person fully and consistently understands the purpose of the admission for examination/placement and is fully capable of personally exercising all rights assured [place] [x] Incompetent to provide express and informed consent to voluntary admission, and this is incompetent to provide express and informed consent to treatment. The person must be transferred to involuntary status and a petition for a guardian advocate filed with the Circuit Court. [] Refusing to provide express and informed consent to voluntary admission but is competent to provide express and informed consent for treatment. The person must be discharged or transferred to involuntary status. Form shall be completed within 24 hours of a person's arrival at the receiving facility and filed in the clinical record of each person: 1. Admitted on a voluntary basis 2. Permitted to provide express and informed consent to his/her own treatment 3. Allowed to transfer from involuntary to voluntary status 4. Prior to permitting a person to consent to his or her own treatment after having been previously found incompetent to consent to treatment. History of Present Illness Capacity: Has Capacity HPI Patient is a 27-year-old woman, single, 2 children were minors ( currently under the care of her mother), with a past psychiatric history of depression, opiate use disorder, no prior psychiatric hospitalizations, prior suicide attempts or self-injurious behavior with a past medical history of seizure disorder was recently admitted to the medical floor for recent seizure and had been allegedly texting her mother that she will kill herself in the context of recently losing custody of her children where she was transferred to the inpatient psychiatry or further evaluation and management. And recent psychiatric evaluation by consult liaison, patient stated that her 2 children were taken away this weekend from her custody and that the kids were only reason to live and was noted to be very distressed and depressed. Patient was found walking the hallway was able to interact with interview with telegraphic typewriter installer nurse. Patient states that she is feeling good, and states that she is currently here because of what her mother had said which was that she had stated that she would kill herself if she could not see her kid she also mentions that the mother had stated that the patient cannot see her kids as per her mother. Patient reports that she does not have any thoughts of wanting to end her life and that she lives for her kids. She states that she has plans to go to the dentist to have her teeth fixed and feels distressed that her kids have not seen her since her hospitalization. Patient reports that she has outpatient follow-up with Dr. London and that she currently takes Suboxone for her opiate use disorder for the past [address]. [address] Mckeon documentation, patient has been followed by her through her pregnancies as well as addressed her opiate addiction and depression but was discharged from her practice in December of noncompliance with follow-up who has concern about patient s ability o continue treatment and ADLs.is also mentioned the patient has caseworkers and that recently he has children were given back to her over the summer but had lost her job resumed opiate and amphetamine use this fall. Patient during interview denied use of amphetamines and opioids and only that she had remote opioid use. Psychiatric history: Previous psychiatric diagnoses of depression as per patient , opiate use disorder recent relapse currently on Suboxone, no previous psychiatric hospitalizations, suicide attempts or self-injurious behavior. Previous medication trials include Zoloft 100 mg by mouth daily she last took 2 years ago while in rehabilitation program. Substance use history: Tobacco (+), reports previous opioid use disorder, last use was a couple of months ago. Patient denies use of any other substances. Patient reports having previous rehabilitation program. Past medical history: Patient reports seizure disorder Allergies: NKDA Social history: Patient states living with her 2 children but unclear if she is currently still in custody of them, unemployed, supported financially by family and friends, patient denies having his to firearms in the home. Review of Systems Except as stated in HPI: all other systems reviewed are Neg Past Psych History Violence risk - others (6 mos) Low Violence risk - self (6 mos) Related to the recent suicidal ideations Substance Abuse History Drugs/Alcohol past 12 months Tobacco (+), reports previous opioid use disorder, last use was a couple of months ago. Patient denies use of any other substances. Patient reports having previous rehabilitation program. Past Family Social History Coded Allergies: No Known Allergies (Unverified , 12/09/14) Active Scripts Lamotrigine (Lamictal) 25 Mg Tab, 25 MG PO Q12HR for Seizure Control, #60 TAB Prov:Tanner Arevalo DO 04/20/17 Gabapentin (Neurontin) 300 Mg Cap, 300 MG PO TID for Seizure Control, #90 CAP Prov:Tanner Arevalo DO 04/20/17 Phenytoin Extended (Dilantin) 100 Mg Cap, 100 MG PO Q8HR for Seizure Control, # 90 CAP Prov:Tanner Arevalo DO 04/20/17 Reported Medications Buprenorphine-Naloxone Sublingual Film (Suboxone Sublingual Film) 2-0.5 Mg Film , 1 FILM SL, FILM Unique ID number required: 08/03/16 Discontinued Reported Medications Buspirone (Buspirone) 10 Mg Tab, 10 MG PO TID for Anxiety, TAB 0 Refills 08/03/16 Lamotrigine (Lamictal) 150 Mg Tab, 150 MG PO DAILY for Control Seizures, #60 TAB 0 Refills 08/03/16 Gabapentin (Gabapentin) 100 Mg Cap, 100 MG PO TID, #90 CAP 0 Refills 08/03/16 Current Medications Medications (Trade) Dose Ordered Sig/Andres Route Start Time Stop Time Status Last Admin (Buprenorphine-Naloxone 8-2 Mg) 0.5 tab QID SL 04/20/17 21:00 04/21/17 12:49 (Neurontin) 300 mg TID PO 04/21/17 18:00 (LaMICtal) 25 mg Q12HR PO 04/21/17 13:00 04/21/17 13:00 (Dilantin) 100 mg Q8HR PO 04/21/17 14:00 (Zoloft) 50 mg DAILY PO 04/21/17 13:45 Social History Patient states living with her 2 children but unclear if she is currently still in custody of them, unemployed, supported financially by family and friends, patient denies having his to firearms in the home. Patient's Strengths (min. 2) Verbal and communicative Physical Exam Patient not noted to be in acute distress, noted to have several teeth missing, bruising on nasal bridge, no gross motor abnormalities, no tremors or EPS, no noted psychomotor retardation or agitation. Vital Signs Vital Signs Date Time Temp Pulse Resp B/P (MAP) Pulse Ox O2 Delivery O2 Flow Rate FiO2 04/21/17 05:57 98.1 76 17 110/63 (79) 100 Mental Status Examination Appearance: Appropriate Consciousness: Alert Orientation: Person, Place, Date/Time Motor Activity: Normal gait Speech: Unremarkable Language: Adequate Fund of Knowledge: Adequate Attention and Concentration: Adequate Memory: Unremarkable Mood: Sad, Anxious Affect: Anxious Thought Process & Associations: Goal directed, Linear Thought Content: Appropriate Hallucination Type: None Delusion Type: None Suicidal Ideation: Yes (denies at this time) Suicidal Plan: No Suicidal Intention: No Homicidal Ideation: No Homicidal Plan: No Homicidal Intention: No Insight: Fair Judgment: Impulsive Assessment & Plan Problem List: (1) Adjustment disorder with depressed mood ICD Codes: F43.21 - Adjustment disorder with depressed mood Assessment & Plan Estimated LOS: 5-7 days. Patient is a 27-year-old woman who carries a diagnoses of depression, opiate use disorder with recent relapse, cocaine use disorder, currently on Suboxone, was admitted to the inpatient psychiatry unit due to recently stressed suicidal ideations in the context of losing custody of her children over the weekend. Patient at this time is currently an elevated risk for self-harm due to recent statements via text messages to her mother that she wanted to kill herself, current relapse into substance use, unemployment, poor social support. Petition for involuntary hospitalization completed, second opinion requested. Start sertraline 50 mg by mouth daily with upward titration for depression. Collateral from his for mother pending ( Keely Pereira [phone]). Continue recommendations as per primary medical team. Discharge planning in progress. Discharge Planning Patient to be discharged back to her residence when psychiatrically stable. King Lamar MD Apr 21, 2017 15:41
[2017-04-21] MEDS ORDERED: ACETAMINOPHEN 325 MG TAB PO PRN (15:45)
[2017-04-21] MEDS ORDERED: ALUMINUM/MAGNESIUM/SIMETH 30 ML CUP PO PRN (15:45)
[2017-04-21] MEDS ORDERED: MAGNESIUM HYDROXIDE SUSP 30 ML CUP PO PRN (15:45)
[2017-04-21] MEDS: SERTRALINE HCL 50 MG TAB PO SCH (15:45)
[2017-04-21] MEDS ORDERED: hydrOXYzine HCL 50 MG TAB PO PRN (15:45)
[2017-04-21 16:42] VITALS: BP 108/55; PULSE 91; RESP 18; TEMP 98.4; O2SAT 100
[2017-04-21] MEDS ORDERED: diphenhydrAMINE HCL 50 MG CAP PO PRN (21:00)
[2017-04-22 05:28] VITALS: BP 113/63; PULSE 88; RESP 16; TEMP 97.9; O2SAT 98
[2017-04-22] MEDS: PHENYTOIN SODIUM 100 MG CAP PO SCH ×3 (05:51→21:09)
--- NOTE | 2017-04-22 07:30 | PD.PSY.CON ---
Provisional Diagnosis Admission Date Apr 20, 2017 at 16:10 [place]. Adjustment disorder with depressed mood History of Present Illness Service Psychiatry Consult Requested By Dr. Lamar Reason for Consult Second opinion Primary Care Physician Unknown HPI Patient is a 27-year-old woman, single, 2 children were minors ( currently under the care of her mother), with a past psychiatric history of depression, opiate use disorder, no prior psychiatric hospitalizations, prior suicide attempts or self-injurious behavior with a past medical history of seizure disorder was recently admitted to the medical floor for recent seizure and had been allegedly texting her mother that she will kill herself in the context of recently losing custody of her children where she was transferred to the inpatient psychiatry or further evaluation and management.And recent psychiatric evaluation by consult liaison, patient stated that her 2 children were taken away this weekend from her custody and that the kids were only reason to live and was noted to be very distressed and depressed. Patient was found walking the hallway was able to interact with interview with financial writer nurse. Patient states that she is feeling good, and states that she is currently here because of what her mother had said which was that she had stated that she would kill herself if she could not see her kid she also mentions that the mother had stated that the patient cannot see her kids as per her mother. Patient reports that she does not have any thoughts of wanting to end her life and that she lives for her kids. She states that she has plans to go to the dentist to have her teeth fixed and feels distressed that her kids have not seen her since her hospitalization. Patient reports that she has outpatient follow-up with Dr. London and that she currently takes Suboxone for her opiate use disorder for the past [address]. [address] Mckeon documentation, patient has been followed by her through her pregnancies as well as addressed her opiate addiction and depression but was discharged from her practice in December of noncompliance with follow-up who has concern about patient s ability o continue treatment and ADLs.is also mentioned the patient has caseworkers and that recently he has children were given back to her over the summer but had lost her job resumed opiate and amphetamine use this fall. Patient during interview denied use of amphetamines and opioids and only that she had remote opioid use. The patient was seen today for psychiatric second opinion. On psychiatric evaluation today the patient is irritable, oppositional, She says that during this weekend her two kids were removed from her custody. She says that her kids are her only reason to live. Yesterday with her mother informed her she is stated that she wanted to and to kill herself. She reports amphetamines abuse, but in the past she has abused many other drugs. She refuses to elaborate about her history of drug abuse. At this moment the patient denies suicidal and homicidal ideation, she denies visual and auditory hallucinations, but the patient seems to be very distressed and objectively depressed. Protective factors are identified at this moment. She is oriented times 3, no attention deficit, no fluctuation of consciousness. Review of Systems Except as stated in HPI: all other systems reviewed are Neg Past Family Social History Coded Allergies: No Known Allergies (Unverified , 12/09/14) Active Scripts Lamotrigine (Lamictal) 25 Mg Tab, 25 MG PO Q12HR for Seizure Control, #60 TAB Prov:Tanner Arevalo DO 04/20/17 Gabapentin (Neurontin) 300 Mg Cap, 300 MG PO TID for Seizure Control, #90 CAP Prov:Tanner Arevalo DO 04/20/17 Phenytoin Extended (Dilantin) 100 Mg Cap, 100 MG PO Q8HR for Seizure Control, # 90 CAP Prov:Tanner Arevalo DO 04/20/17 Reported Medications Buprenorphine-Naloxone Sublingual Film (Suboxone Sublingual Film) 2-0.5 Mg Film , 1 FILM SL, FILM Unique ID number required: 08/03/16 Discontinued Reported Medications Buspirone (Buspirone) 10 Mg Tab, 10 MG PO TID for Anxiety, TAB 0 Refills 08/03/16 Lamotrigine (Lamictal) 150 Mg Tab, 150 MG PO DAILY for Control Seizures, #60 TAB 0 Refills 08/03/16 Gabapentin (Gabapentin) 100 Mg Cap, 100 MG PO TID, #90 CAP 0 Refills 08/03/16 Current Medications Medications (Trade) Dose Ordered Sig/Andres Route Start Time Stop Time Status Last Admin (Buprenorphine-Naloxone 8-2 Mg) 0.5 tab QID SL 04/20/17 21:00 04/21/17 21:00 (Neurontin) 300 mg TID PO 04/21/17 18:00 04/21/17 16:58 (LaMICtal) 25 mg Q12HR PO 04/21/17 13:00 04/21/17 21:12 (Dilantin) 100 mg Q8HR PO 04/21/17 14:00 04/22/17 05:51 (Zoloft) 50 mg DAILY PO 04/21/17 13:45 04/21/17 15:45 (Benadryl) 50 mg HS PRN PO 04/21/17 21:00 (Tylenol) 650 mg Q4H PRN PO 04/21/17 15:45 (Milk Of Magnesia Liq) 30 ml DAILY PRN PO 04/21/17 15:45 (Mag-Al Plus Susp Liq) 30 ml Q6H PRN PO 04/21/17 15:45 (Habitrol 21 Mg Patch.24 Hr) 1 patch DAILY T-DERMAL 04/22/17 09:00 (Atarax) 50 mg Q6H PRN PO 04/21/17 15:45 Miscellaneous Information 1 DAILY T-DERMAL 04/22/17 09:00 Patient's Strengths (min. 2) Verbal and communicative Physical Exam Vital Signs Vital Signs Date Time Temp Pulse Resp B/P (MAP) Pulse Ox O2 Delivery O2 Flow Rate FiO2 04/22/17 05:28 97.9 88 16 113/63 (80) 98 Mental Status Examination Appearance: Appropriate Consciousness: Alert Orientation: Person, Place, Date/Time Motor Activity: Normal gait Speech: Unremarkable Language: Adequate Fund of Knowledge: Adequate Attention and Concentration: Adequate Memory: Unremarkable Mood: Sad, Anxious Affect: Anxious Thought Process & Associations: Goal directed, Linear Thought Content: Appropriate Hallucination Type: None Delusion Type: None Suicidal Ideation: Yes (denies at this time) Suicidal Plan: No Suicidal Intention: No Homicidal Ideation: No Homicidal Plan: No Homicidal Intention: No Insight: Fair Judgment: Impulsive Assessment & Plan Problem List: (1) Adjustment disorder with depressed mood ICD Codes: F43.21 - Adjustment disorder with depressed mood Assessment & Plan: Patient was seen and examined today, chart was reviewed, case discussed personally with Dr. Lamra, and I agree and concur with this assessment and plan. Consult appreciated. Assessment & Plan Estimated LOS: Javier Martinez MD Apr 22, 2017 07:30
[2017-04-22] MEDS: SERTRALINE HCL 50 MG TAB PO SCH (08:29)
[2017-04-22] MEDS: lamoTRIgine 25 MG TAB PO SCH ×2 (08:29→21:00)
[2017-04-22] MEDS: BUPRENORPHINE/NALOXONE 8 MG/2 MG SUBLINGUAL TAB SL SCH ×4 (08:29→21:08)
[2017-04-22] MEDS: GABAPENTIN 300 MG CAP PO SCH ×3 (08:30→17:01)
[2017-04-22] MEDS: NICOTINE 21 MG/24 HR PATCH T-DERMAL SCH (08:32)
[2017-04-22] MEDS: REMOVE OLD PATCH T-DERMAL SCH (08:36)
--- NOTE | 2017-04-22 09:37 | PD.TTN ---
Patient Problems 1. Discharge planning 2. Medication compliance 3. Knowledge deficit 4. Lack of coping skills Progress Toward Goals Provider Present: Dr. Kasie Lamar Provider Input: 04/21/2017 Patient has two children that have been removed from her custody and are presently living with patient's mother. Patient may have a histroy of seizures and does have a history of substance abuse. Patient reportedly sent suicidal statements via text messages. Psychiatric Counselors Present: ZEYNEP Daley Psych Therapist Input: 04/21/2017 This patient is new to this counselor as of today. Counselor attempted to speak to patient on the unit and patient refused to engage in conversation, only staring at this counselor. Group Spec/RT/OT/JERONIMO Present: KANDACE Monroe Group Spec/RT/OT/JERONIMO Input: 04/21/2017 Patient is not participating in recreational therapy groups. Documentation Scribe: ZEYNEP Villeda Date Resolved: Apr 21, 2017 Zena Tapia Apr 22, 2017 09:37
[2017-04-22 11:48] LABS: AUTOMATED NEUTROPHIL # 4.1 TH/MM3 (1.8-7.7); BASOPHIL # 0.1 TH/MM3 (0-0.2); BASOPHIL % 0.8 % (0.0-2.0); EOSINOPHIL # 0.5 TH/MM3 (0-0.4); EOSINOPHIL % 7.6 % (0.0-4.0); HEMATOCRIT 40.1 % (35.0-46.0); HEMO FLAGS DIFF FINAL; LYMPH % 27.9 % (9.0-44.0); LYMPHOCYTE # 1.9 TH/MM3 (1.0-4.8); MEAN CELL VOLUME 75.9 FL (80.0-100.0); MEAN CORPUSCULAR HEMOGLOBIN 25.3 PG (27.0-34.0); MEAN CORPUSCULAR HGB CONC 33.3 % (32.0-36.0); MONO % 4.2 % (0.0-8.0); NEUT % 59.5 % (16.0-70.0); PLATELET COUNT 298 TH/MM3 (150-450); RED BLOOD COUNT 5.28 MIL/MM3 (4.00-5.30); RED CELL DISTRIBUTION WIDTH 16.1 % (11.6-17.2); WHITE BLOOD COUNT 6.8 TH/MM3 (4.0-11.0)
[2017-04-22 12:08] LABS: BICARBONATE 31.4 MEQ/L (21.0-32.0); HDL CHOLESTEROL 84.7 MG/DL (40.0-60.0); LDL CHOLESTEROL 96 MG/DL (0-99); POTASSIUM 4.2 MEQ/L (3.5-5.1)
[2017-04-22 12:30] LABS: FERRITIN 62 NG/ML (8-252); TRANSFERRIN IRON PROFILE 379 MG/DL (200-360)
--- NOTE | 2017-04-22 13:48 | HHI.PYPN ---
Subjective Chief Complaint: Suicidal ideations Remarks Patient seen for follow-up, chart reviewed. Discussion she staff reported the patient has been compliant with medications 90 suicide ideations. Patient was found in the room participating in groups with, cooperative interview today. Patient states that she had been thinking a lot about her future stated that she spoke recently with [facility] liaison and is considering engaging in the program seen for rehabilitation. 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 Patient reports feeling well and continues to be worried about having her teeth fixed as a consequence from the seizure. Patient states that she had been following with her outpatient provider for quite some time but then has stopped going states that she "messed up" and had engaged in taking Adderall. She believes she had ADHD. Patient states that her children have been through enough for one to now do things right. She states that she had text that her mother when she found out that she was no longer having custody of the children stated that she wanted there she cannot see her children again but states that she understands that her mother will be primary custody of her children that she will try to regain custody of her children again by doing things to address her addiction as well as her mental health. Patient stated that she feels motivated to get her life back. Public Works Commissioner and therapist spoke with patient's mother who stated feeling concern initially because patient had text that her messages stating that she wanted to kill herself if she cannot see her children. She states that she currently has temporary custody of the children and that the patient is not allowed to see the children until the patient goes to court proceedings to try to gain visiting rights. Review of Systems Except as stated in HPI: all other systems reviewed are Neg Mental Status Examination Appearance: Appropriate Consciousness: Alert Orientation: Person, Place, Date/Time Motor Activity: Normal gait Speech: Unremarkable Language: Adequate Fund of Knowledge: Adequate Attention and Concentration: Adequate Memory: Unremarkable Mood: Sad, Anxious Affect: Anxious Thought Process & Associations: Goal directed, Linear Thought Content: Appropriate Hallucination Type: None Delusion Type: None Suicidal Ideation: Yes (denies at this time) Suicidal Plan: No Suicidal Intention: No Homicidal Ideation: No Homicidal Plan: No Homicidal Intention: No Insight: Fair Judgment: Impulsive Results Labs labs reviewed Test 04/22/17 11:05 White Blood Count 6.8 TH/MM3 Red Blood Count 5.28 MIL/MM3 Hemoglobin 13.3 GM/DL Hematocrit 40.1 % Mean Corpuscular Volume 75.9 FL Mean Corpuscular Hemoglobin 25.3 PG Mean Corpuscular Hemoglobin Concent 33.3 % Red Cell Distribution Width 16.1 % Platelet Count 298 TH/MM3 Mean Platelet Volume 7.7 FL Neutrophils (%) (Auto) 59.5 % Lymphocytes (%) (Auto) 27.9 % Monocytes (%) (Auto) 4.2 % Eosinophils (%) (Auto) 7.6 % Basophils (%) (Auto) 0.8 % Neutrophils # (Auto) 4.1 TH/MM3 Lymphocytes # (Auto) 1.9 TH/MM3 Monocytes # (Auto) 0.3 TH/MM3 Eosinophils # (Auto) 0.5 TH/MM3 Basophils # (Auto) 0.1 TH/MM3 CBC Comment DIFF FINAL Differential Comment Blood Urea Nitrogen 12 MG/DL Creatinine 0.53 MG/DL Random Glucose 105 MG/DL Calcium Level 9.2 MG/DL Sodium Level 135 MEQ/L Potassium Level 4.2 MEQ/L Chloride Level 99 MEQ/L Carbon Dioxide Level 31.4 MEQ/L Anion Gap 5 MEQ/L Estimat Glomerular Filtration Rate 136 ML/MIN Iron Level 34 MCG/DL Total Iron Binding Capacity 531 MCG/DL Percent Iron Saturation 6.4 % Ferritin 62 NG/ML Triglycerides Level 83 MG/DL Cholesterol Level 197 MG/DL LDL Cholesterol 96 MG/DL HDL Cholesterol 84.7 MG/DL Cholesterol/HDL Ratio 2.32 RATIO Vitamin B12 Level 1212 PG/ML Thyroid Stimulating Hormone 3rd Gen 1.000 uIU/ML Vitals/IOs Vital Signs Date Time Temp Pulse Resp B/P (MAP) Pulse Ox O2 Delivery O2 Flow Rate FiO2 04/22/17 05:28 97.9 88 16 113/63 (80) 98 Assessment & Plan Problem List: (1) Adjustment disorder with depressed mood ICD Codes: F43.21 - Adjustment disorder with depressed mood Assessment & Plan Patient at this time does be more engaging, continues to feel upset about her recent loss of custody of her children denies any suicide ideations. Patient noted to be more goal oriented and future oriented and motivated to engage in outpatient treatment for rehabilitation from substance use as well as outpatient follow-up with her medical providers. Patient's children are currently in the custody of her mother just stipulated the patient is not allowed to see the children at this time without going through the court system to have visiting rights. We'll increase sertraline to 100 mg by mouth daily as patient was on this dose previously which she maintained stable mood. We'll explore possibilities of inpatient rehabilitation programs as well as connect patient with outpatient follow-up post discharge she possibly may be [facility]. Continue to monitor mood and behavior. Discharge planning in progress Justification for Cont. Inpt. At risk for further decompensation if at lower level of care Discharge Planning Patient to be discharged back to her residence once psychiatrically stable. King Lamar MD Apr 22, 2017 13:48
--- NOTE | 2017-04-22 14:09 | EKG ---
Date Performed: 04/22/2017 Time Performed: 11:33:20 PTAGE: 27 years EKG: Sinus rhythm POSSIBLE RIGHT VENTRICULAR CONDUCTION DELAY BORDERLINE ECG Compared to prior tracing no significant change PREVIOUS TRACING : 04/19/2017 13.29 DOCTOR: Carolyn Beverly Interpretating Date/Time 04/22/2017 14:07:54
[2017-04-22 16:30] VITALS: BP 119/77; PULSE 89; RESP 16; TEMP 98.1; O2SAT 98
--- NOTE | 2017-04-22 16:54 | PD.CONS ---
HPI Service [facility] Hospitalists Consult Requested By Psychiatric services Reason for Consult Medical management Primary Care Physician Unknown Diagnoses: History of Present Illness Written by Mindy Duong, acting as scribe for Dr. Chavez on 04/22/17 at 16: 27. This is a 27yo female with PMHX of IVDU, Hepatitis C and seizure disorder who was discharged from the med/surg service yesterday and admitted to inpatient psychiatry for suicidal ideations. Patient was admitted 04/16/17 after being found unresponsive by her 4-year-old child who called 911. Patient was seen by neurology with impression of breakthrough seizures likely secondary to withdrawals from drug dependence. She was found to have abnormal EEG and given a loading dose of Dilantin and started on Dilantin 100 mg 3 times a day. She was also resumed on gabapentin and Lamictal. She was cleared for discharge from a neurology standpoint however on the day of discharge patient made comments to her mother that she was going to kill herself. Patient has since been admitted to inpatient psychiatry service and Hospitalist services have been consulted for medical management. Patient seen and examined today. Patient denies any complaints at present. She denies any loss of consciousness or jerking movements. States she's feeling better overall. Review of Systems Except as stated in HPI: all other systems reviewed are Neg Past Family Social History Allergies: Coded Allergies: No Known Allergies (Unverified , 12/09/14) Past Medical History Seizure disorder History of IV drug use Hepatitis C Past Surgical History Patient has no previous surgical history Reported Medications Neurontin 300 mg by mouth 3 times a day Dilantin 100 mg by mouth every 8 hours Zoloft 50 mg by mouth daily Lamictal 25 mg by mouth twice a day Suboxone 0.5 mg sublingual 4 times a day Active Ordered Medications Current Medications Medications (Trade) Dose Ordered Sig/Andres Route Start Time Stop Time Status Last Admin (Buprenorphine-Naloxone 8-2 Mg) 0.5 tab QID SL 04/20/17 21:00 04/22/17 12:59 (Neurontin) 300 mg TID PO 04/21/17 18:00 04/22/17 12:59 (LaMICtal) 25 mg Q12HR PO 04/21/17 13:00 04/22/17 08:29 (Dilantin) 100 mg Q8HR PO 04/21/17 14:00 04/22/17 13:01 (Zoloft) 50 mg DAILY PO 04/21/17 13:45 04/22/17 08:29 (Benadryl) 50 mg HS PRN PO 04/21/17 21:00 (Tylenol) 650 mg Q4H PRN PO 04/21/17 15:45 (Milk Of Magnesia Liq) 30 ml DAILY PRN PO 04/21/17 15:45 (Mag-Al Plus Susp Liq) 30 ml Q6H PRN PO 04/21/17 15:45 (Habitrol 21 Mg Patch.24 Hr) 1 patch DAILY T-DERMAL 04/22/17 09:00 04/22/17 08:32 (Atarax) 50 mg Q6H PRN PO 04/21/17 15:45 Miscellaneous Information 1 DAILY T-DERMAL 04/22/17 09:00 Family History Reviewed with patient, no family history of heart disease, diabetes, strokes. Social History No reported history of tobacco use. No history of alcohol use. History of IV drug use Physical Exam Vital Signs Vital Signs Date Time Temp Pulse Resp B/P (MAP) Pulse Ox O2 Delivery O2 Flow Rate FiO2 04/22/17 05:28 97.9 88 16 113/63 (80) 98 04/21/17 16:42 98.4 91 18 108/55 (72) 100 Physical Exam GENERAL: This is a well-nourished, well-developed patient, in no apparent distress. Awake and alert. Ambulating in the day room SKIN: No rashes, ecchymoses or lesions. Cool and dry. HEAD: Atraumatic. Normocephalic. No temporal or scalp tenderness. EYES: Pupils equal round and reactive. Extraocular motions intact. No scleral icterus. No injection or drainage. ENT: Nose without bleeding or purulent drainage. Throat without erythema, tonsillar hypertrophy or exudate. Uvula midline. Airway patent. NECK: Trachea midline. No lymphadenopathy. Supple, nontender, no meningeal signs. CARDIOVASCULAR: Regular rate and rhythm without murmurs, gallops, or rubs. RESPIRATORY: Clear to auscultation. Breath sounds equal bilaterally. No wheezes , rales, or rhonchi. GASTROINTESTINAL: Abdomen soft, non-tender, nondistended. No hepato-splenomegaly , or palpable masses. No guarding. MUSCULOSKELETAL: Extremities without clubbing, cyanosis, or edema. No joint tenderness, effusion, or edema noted. No calf tenderness. NEUROLOGICAL: Awake and alert. Cranial nerves II through XII intact grossly. Able to move all extremities spontaneously. No focal neurologic finding appreciated. Normal speech. Laboratory Laboratory Tests Test 04/22/17 11:05 White Blood Count 6.8 Red Blood Count 5.28 Hemoglobin 13.3 Hematocrit 40.1 Mean Corpuscular Volume 75.9 Mean Corpuscular Hemoglobin 25.3 Mean Corpuscular Hemoglobin Concent 33.3 Red Cell Distribution Width 16.1 Platelet Count 298 Mean Platelet Volume 7.7 Neutrophils (%) (Auto) 59.5 Lymphocytes (%) (Auto) 27.9 Monocytes (%) (Auto) 4.2 Eosinophils (%) (Auto) 7.6 Basophils (%) (Auto) 0.8 Neutrophils # (Auto) 4.1 Lymphocytes # (Auto) 1.9 Monocytes # (Auto) 0.3 Eosinophils # (Auto) 0.5 Basophils # (Auto) 0.1 CBC Comment DIFF FINAL Differential Comment Blood Urea Nitrogen 12 Creatinine 0.53 Random Glucose 105 Calcium Level 9.2 Sodium Level 135 Potassium Level 4.2 Chloride Level 99 Carbon Dioxide Level 31.4 Anion Gap 5 Estimat Glomerular Filtration Rate 136 Iron Level 34 Total Iron Binding Capacity 531 Percent Iron Saturation 6.4 Ferritin 62 Triglycerides Level 83 Cholesterol Level 197 LDL Cholesterol 96 HDL Cholesterol 84.7 Cholesterol/HDL Ratio 2.32 Vitamin B12 Level 1212 Thyroid Stimulating Hormone 3rd Gen 1.000 Result Diagram: 04/22/17 1105 04/22/17 1105 Assessment and Plan Assessment and Plan 27yo female with PMHX of IVDU, Hepatitis C and seizure disorder who was discharged from the med/surg service yesterday and admitted to inpatient psychiatry for suicidal ideations. Suicidal ideation - Management per psychiatric team Hepatitis C History of IV drug use - Discussed cessation - standard precautions - Recommend follow-up with oncology rep specialist as outpatient to discuss treatment options Seizure disorder - Recommend continuing patient on current doses of Dilantin, Lamictal and gabapentin - Will order Dilantin level - Seizure precautions - Monitor for any evidence of seizure activity - Patient will need to follow-up with neurologist as outpatient following discharge Hyponatremia - Mild - Encourage fluid intake Anemia, microcytic hypochromic - Iron studies revealing iron deficiency anemia - Begin by mouth iron supplementation - Monitor CBC as indicated Opioid dependence - Continue on Suboxone - Patient was following with Dr. Arriola until December when she was released from the practice due to noncompliance Nasal bone fracture as a result of recent seizure episode - Patient will need to follow-up with ENT specialist as outpatient DVT prophylaxis - Patient is ambulatory Discussed Condition With Patient This note was transcribed by scribe [Mindy Duong ]. I, Dr. Mily Chavez personally performed the history, physical exam, and medical decision making; and confirmed the accuracy of the information in the transcribed note. Authenticated by Dr. Chavez on 04/22/17 at 16:42. Mindy Duong Apr 22, 2017 16:54 Mily Chavez MD Apr 22, 2017 20:08
[2017-04-22 17:01] LABS: HEMOGLOBIN A1b 1.8 %; HEMOGLOBIN Ao 84.9 %; HEMOGLOBIN LA1C 2.2 %; HEMOGLOBIN P3 3.9 %
[2017-04-23 05:08] VITALS: BP 108/58; PULSE 76; RESP 16; TEMP 97.9; O2SAT 98
[2017-04-23] MEDS: PHENYTOIN SODIUM 100 MG CAP PO SCH ×2 (06:08→13:04)
[2017-04-23] MEDS: GABAPENTIN 300 MG CAP PO SCH ×2 (08:20→13:04)
[2017-04-23] MEDS: SERTRALINE HCL 50 MG TAB PO SCH (08:20)
[2017-04-23] MEDS: lamoTRIgine 25 MG TAB PO SCH (08:20)
[2017-04-23] MEDS: BUPRENORPHINE/NALOXONE 8 MG/2 MG SUBLINGUAL TAB SL SCH ×2 (08:21→13:05)
[2017-04-23] MEDS: NICOTINE 21 MG/24 HR PATCH T-DERMAL SCH (08:24)
[2017-04-23] MEDS: REMOVE OLD PATCH T-DERMAL SCH (08:51)
[2017-04-23] MEDS ORDERED: FERROUS SULFATE 325 MG (65 MG ELEMENTAL IRON) TAB PO SCH (09:00)
[2017-04-23] MEDS ORDERED: ASCORBIC ACID 500 MG TAB PO SCH (09:00)
[2017-04-23] MEDS ORDERED: NEUR300C PO (09:37)
[2017-04-23] MEDS ORDERED: DILA100C PO (09:37)
[2017-04-23] MEDS ORDERED: LAMO25 PO (09:37)
--- NOTE | 2017-04-23 09:41 | HHI.PR ---
Subjective Remarks Follow up on patient with seizure d/o, Hep C. Patient seen and examined. Patient denies any recurrent seizure activity. She is requesting something for her tongue pain due to recent tongue biting injury that occurred as a result of her last seizure. She denies any other complaints. States she feels well. She is attempting to sign up with [employer]. Objective Vitals Vital Signs Date Time Temp Pulse Resp B/P (MAP) Pulse Ox O2 Delivery O2 Flow Rate FiO2 04/23/17 05:08 97.9 76 16 108/58 (75) 98 04/22/17 16:30 98.1 89 16 119/77 (91) 98 Result Diagram: 04/22/17 1105 04/22/17 1105 Objective Remarks GENERAL: This is a well-nourished, well-developed young female patient, in no apparent distress. Awake and alert. Sitting in the day room coloring. SKIN: Warm and dry. (+)resolving ecchymosis noted over bridge of nose. HEAD: Normocephalic. EYES: Extraocular motions intact. No scleral icterus. No injection or drainage. ENT: Nose without bleeding or purulent drainage. Poor dentition, broken teeth. Airway patent. Left sided tongue injury. NECK: Trachea midline. CARDIOVASCULAR: Regular rate and rhythm without murmurs, gallops, or rubs. RESPIRATORY: Clear to auscultation. Breath sounds equal bilaterally. No wheezes , rales, or rhonchi. GASTROINTESTINAL: Abdomen soft, non-tender, nondistended. No hepato-splenomegaly , or palpable masses. No guarding. MUSCULOSKELETAL: Extremities without clubbing, cyanosis, or edema. NEUROLOGICAL: Awake and alert. Able to move all extremities spontaneously. Nonfocal. Normal speech. PSYCHIATRIC: Calm, pleasant, cooperative. Appropriate mood and affect. Appears to have normal insight and judgement. Medications and IVs Current Medications Medications (Trade) Dose Ordered Sig/Andres Route Start Time Stop Time Status Last Admin (Buprenorphine-Naloxone 8-2 Mg) 0.5 tab QID SL 04/20/17 21:00 04/23/17 08:21 (Neurontin) 300 mg TID PO 04/21/17 18:00 04/23/17 08:20 (LaMICtal) 25 mg Q12HR PO 04/21/17 13:00 04/23/17 08:20 (Dilantin) 100 mg Q8HR PO 04/21/17 14:00 04/23/17 06:08 (Zoloft) 50 mg DAILY PO 04/21/17 13:45 04/23/17 08:20 (Benadryl) 50 mg HS PRN PO 04/21/17 21:00 (Tylenol) 650 mg Q4H PRN PO 04/21/17 15:45 04/23/17 06:11 (Milk Of Magnesia Liq) 30 ml DAILY PRN PO 04/21/17 15:45 (Mag-Al Plus Susp Liq) 30 ml Q6H PRN PO 04/21/17 15:45 (Habitrol 21 Mg Patch.24 Hr) 1 patch DAILY T-DERMAL 04/22/17 09:00 04/23/17 08:24 (Atarax) 50 mg Q6H PRN PO 04/21/17 15:45 04/22/17 21:38 Miscellaneous Information 1 DAILY T-DERMAL 04/22/17 09:00 04/23/17 08:51 (Ferrous Sulfate) 325 mg DAILY PO 04/23/17 09:00 04/23/17 08:20 (Vitamin C) 250 mg DAILY PO 04/23/17 09:00 04/23/17 08:21 A/P Assessment and Plan 27yo female with PMHX of IVDU, Hepatitis C and seizure disorder who was discharged from the med/surg service yesterday and admitted to inpatient psychiatry for suicidal ideations. Suicidal ideation - Management per psychiatric team Hepatitis C History of IV drug use - Discussed cessation - standard precautions - Recommend follow-up with greeter guest services as outpatient to discuss treatment options Seizure disorder - no recurrent seizure activity reported - continue patient on current doses of Dilantin, Lamictal and gabapentin - Dilantin level/pending - Seizure precautions - Monitor for any evidence of seizure activity - Patient will need to follow-up with neurologist as outpatient following discharge Left sided tongue injury - secondary to biting during seizure - Miracle mouthwash for symptomatic tx Hyponatremia - Mild - Encourage fluid intake Anemia, microcytic hypochromic - Iron studies revealing iron deficiency anemia - B12 1212 - started on po iron supplementation, continue - Monitor CBC as indicated Opioid dependence - Continue on Suboxone - Patient was following with Dr. Arriola until December when she was released from the practice due to noncompliance Right nasal bone fracture as a result of recent seizure episode - Patient will need to follow-up with ENT specialist as outpatient DVT prophylaxis - Patient is ambulatory Discussed with patient, nursing staff and Mindy Gerardo Apr 23, 2017 09:41
--- NOTE | 2017-04-23 09:44 | HHI.DS ---
Psychiatry Discharge Summary Inpatient Psychiatric care?: Yes Advance Directive: No Reason Not Provided: REFUSED Mental Health AdvanceDirective: No Health Care Proxy: Yes Admission Admission Date Apr 20, 2017 at 16:10 Admission Diagnosis: (1) Adjustment disorder with depressed mood ICD Code: F43.21 - Adjustment disorder with depressed mood Brief History Patient is a 27-year-old woman, single, 2 children were minors ( currently under the care of her mother), with a past psychiatric history of depression, opiate use disorder, no prior psychiatric hospitalizations, prior suicide attempts or self-injurious behavior with a past medical history of seizure disorder was recently admitted to the medical floor for recent seizure and had been allegedly texting her mother that she will kill herself in the context of recently losing custody of her children where she was transferred to the inpatient psychiatry or further evaluation and management.And recent psychiatric evaluation by consult liaison, patient stated that her 2 children were taken away this weekend from her custody and that the kids were only reason to live and was noted to be very distressed and depressed. Patient was found walking the hallway was able to interact with interview with account underwriter nurse. Patient states that she is feeling good, and states that she is currently here because of what her mother had said which was that she had stated that she would kill herself if she could not see her kid she also mentions that the mother had stated that the patient cannot see her kids as per her mother. Patient reports that she does not have any thoughts of wanting to end her life and that she lives for her kids. She states that she has plans to go to the dentist to have her teeth fixed and feels distressed that her kids have not seen her since her hospitalization. Patient reports that she has outpatient follow-up with Dr. London and that she currently takes Suboxone for her opiate use disorder for the past [address] Mckeon documentation, patient has been followed by her through her pregnancies as well as addressed her opiate addiction and depression but was discharged from her practice in December of noncompliance with follow-up who has concern about patient s ability o continue treatment and ADLs.is also mentioned the patient has caseworkers and that recently he has children were given back to her over the summer but had lost her job resumed opiate and amphetamine use this fall. Patient during interview denied use of amphetamines and opioids and only that she had remote opioid use. The patient was seen today for psychiatric second opinion. On psychiatric evaluation today the patient is irritable, oppositional, She says that during this weekend her two kids were removed from her custody. She says that her kids are her only reason to live. Yesterday with her mother informed her she is stated that she wanted to and to kill herself. She reports amphetamines abuse, but in the past she has abused many other drugs. She refuses to elaborate about her history of drug abuse. At this moment the patient denies suicidal and homicidal ideation, she denies visual and auditory hallucinations, but the patient seems to be very distressed and objectively depressed. Protective factors are identified at this moment. She is oriented times 3, no attention deficit, no fluctuation of consciousness. Tobacco Use In Past 30 Days: No Tobacco Past 30 Days Alcohol Use: Never Hospital Course Patient was admitted in the psychiatric unit transfer from the medical floor after the patient expressed suicidal ideation in the context of an argument with his mother and been told that HER-2 kids were removed from her care. At the beginning the patient was very irritable, endorsing depression, suicide ideation, hopeless, helpless. With intensive supportive psychotherapy, meeting with her mother and her father, patient calm down. Longitudinal observation the patient did not show any agitation, any aggressive or psychotic behavior. She was calm, cooperative most of the time. Her father and her mother, both, were reached by phone and they agreed with discharging the patient back to her father house. He she was widely educated about the importance of avoiding illegal substances. Patient will go back to [facility] [employer] to continue her treatment of addictions. Results Blood Pressure 108 / 58 Vital Signs Date Time Temp Pulse Resp B/P (MAP) Pulse Ox O2 Delivery O2 Flow Rate FiO2 04/23/17 05:08 97.9 76 16 108/58 (75) 98 Laboratory Tests Test 04/22/17 11:05 04/22/17 16:35 Mean Corpuscular Volume 75.9 FL (80.0-100.0) Mean Corpuscular Hemoglobin 25.3 PG (27.0-34.0) Eosinophils (%) (Auto) 7.6 % (0.0-4.0) Eosinophils # (Auto) 0.5 TH/MM3 (0-0.4) Sodium Level 135 MEQ/L (136-145) Iron Level 34 MCG/DL (50-170) Total Iron Binding Capacity 531 MCG/DL (250-450) Percent Iron Saturation 6.4 % (20-50) HDL Cholesterol 84.7 MG/DL (40.0-60.0) Vitamin B12 Level 1212 PG/ML (193-986) Laboratory Results Test 04/22/17 11:05 Cholesterol Level 197 MG/DL (120-200) HDL Cholesterol 84.7 MG/DL (40.0-60.0) Hemoglobin A1c 5.6 % (4.3-6.0) LDL Cholesterol 96 MG/DL (0-99) Triglycerides Level 83 MG/DL (42-150) Summary of Procedures None Pending results at discharge: No Medications # of Antipsychotic meds at D/C: 0 Approp Antipsych med options 1 - Minimum of three failed multiple trials of monotherapy. 2 - Documented plan to taper to monotherapy due to previous use of multiple meds OR cross-taper in progress at D/C. 3 - Documentation of augmentation of Clozapine. 4 - Justification other than those listed in allowable values 1-3, document here : Discharge Discharge Date: Apr 23, 2017 Discharge Diagnosis: (1) Polysubstance dependence ICD Code: F19.20 - Other psychoactive substance dependence, uncomplicated (2) Adjustment disorder with depressed mood ICD Code: F43.21 - Adjustment disorder with depressed mood Pt Condition on Discharge: Stable Discharge Disposition: Discharge Home Discharge Instructions Diet Instructions: As Tolerated, No Restrictions Activities you can perform: Regular-No Restrictions Scheduled Appointment: Discharge Time > 30 minutes Mental Status Examination Appearance: Appropriate Consciousness: Alert Orientation: Person, Place, Date/Time Motor Activity: Normal gait Speech: Unremarkable Language: Adequate Fund of Knowledge: Adequate Attention and Concentration: Adequate Memory: Unremarkable Mood: Sad, Anxious Affect: Anxious Thought Process & Associations: Goal directed, Linear Thought Content: Appropriate Hallucination Type: None Delusion Type: None Suicidal Ideation: Yes (denies at this time) Suicidal Plan: No Suicidal Intention: No Homicidal Ideation: No Homicidal Plan: No Homicidal Intention: No Insight: Fair Judgment: Impulsive Discharge/Advance Care Plan Health Problems: (1) Adjustment disorder with depressed mood Goals to promote your health * To prevent worsening of your condition and complications * To maintain your health at the optimal level Directions to meet your goals Take your medications as prescribed Follow your dietary instruction Follow activity as directed Keep your appointments as scheduled Take your immunizations and boosters as scheduled If your symptoms worsen call your PCP, if no PCP go to Urgent Care Center or Emergency Room For 30/11 questions related to your inpatient stay or results of tests pending at discharge, please contact Dr. Javier Beltran at Smoking is Dangerous to Your Health. Avoid second hand smoking Javier Beltran MD Apr 23, 2017 09:44
[2017-04-23] MEDS ORDERED: NYSTAT/DIPHENHY/LIDO MOUTHWASH (Adult) 120ML SWISH-SWAL SCH (13:00)
== END 2017-04-23 14:00 | disposition home or self-care (01) | DRG 881 ==
LOC: H260 16:10
PROVIDERS: ADMIT Student in an Organized Health Care Education/Training Program; ATTEND Student in an Organized Health Care Education/Training Program
DX: F43.21 Adjustment disorder with depressed mood (principal); G93.40 Encephalopathy, unspecified; R64 Cachexia; G40.909 Epilepsy, unspecified, not intractable, without status epilepticus; F11.20 Opioid dependence, uncomplicated; E87.1 Hypo-osmolality and hyponatremia; R45.851 Suicidal ideations; F14.10 Cocaine abuse, uncomplicated; B19.20 Unspecified viral hepatitis C without hepatic coma; D50.9 Iron deficiency anemia, unspecified; S02.2XXA Fracture of nasal bones, initial encounter for closed fracture; K14.6 Glossodynia; F15.10 Other stimulant abuse, uncomplicated; Z72.0 Tobacco use; Z56.0 Unemployment, unspecified; Z91.19 Patient's noncompliance with other medical treatment and regimen
CPT/HCPCS: 80048; 80061; 80186; 82607; 82728; 83036; 83540; 83550; 84443; 85025; 93005

== ENCOUNTER 2017-08-12 08:53 | Emergency (ER) | payer OTHER ==
[~2017-08-12] VITALS: Ht 162.6 cm; Wt 60.0 kg
[~2017-08-12 08:53] MED LIST changes: -BUSP10TA PO; -GABA100C4 PO; -LAMO150 PO
[2017-08-12] MEDS ORDERED: SODIUM CHLORIDE 0.9% FLUSH 10 ML FLUSH IVF PRN (09:00)
[2017-08-12 09:06] VITALS: BP 137/84; PULSE 86; RESP 18; TEMP 97.8; O2SAT 96
--- NOTE | 2017-08-12 09:09 | PD ---
HPI Chief Complaint: Seizure Time Seen by Provider: 08:56 Travel History International Travel<30 days: No Contact w/Intl Traveler<30days: No Traveled to known affect area: No History of Present Illness HPI 27-year-old female presents from triage with report of seizure in the car. Staff did not witness seizure. Mother arrives to bedside Shortly after patient and states roommates had said that she had had a couple seizures overnight and she has witnessed that she has had 2. Mother states she was taking her to court today as she helps take care of her children but given she started having seizures she brought her here. Her mother states she has history of IV drug abuse and seizure disorder. She provides her medications which include Lamictal and gabapentin but she is unsure if she is taking them. Patient is currently postictal and history is very limited from patient but mother helps supplement some. PFSH Past Medical History Asthma: Yes (uses inhalers as needed) Diabetes: No Neurologic: Yes (SEIZURES PER PATIENT) Respiratory: Yes Seizures: Yes (Recently diagnosed) ?: Not Past Surgical History Body Medical Devices: UNABLE TO ASSESS Social History Alcohol Use: No (UNKNOWN) Tobacco Use: Yes (UNKNOWN) Substance Use: Yes (denies recent ivda) Allergies-Medications (Allergen,Severity, Reaction): Coded Allergies: No Known Allergies (Unverified , 12/09/14) Reported Meds & Prescriptions Reported Meds & Active Scripts Active Dilantin (Phenytoin Extended) 100 Mg Cap 100 Mg PO TID 14 Days Lamictal (Lamotrigine) 25 Mg Tab 25 Mg PO Q12HR Neurontin (Gabapentin) 300 Mg Cap 300 Mg PO TID Dilantin (Phenytoin Extended) 100 Mg Cap 100 Mg PO Q8HR Reported Suboxone Sublingual Film (Buprenorphine-Naloxone Sublingual Film) 2-0.5 Mg Film 1 Film SL Unique ID number required: Review of Systems Except as stated in HPI: all other systems reviewed are Neg Physical Exam Narrative GENERAL: 27-year-old female who appears postictal SKIN: Focused skin assessment warm/dry. HEAD: Atraumatic. Normocephalic. EYES: Pupils equal and round. No scleral icterus. No injection or drainage. ENT: No nasal bleeding or discharge. Mucous membranes pink and moist. NECK: Trachea midline. CARDIOVASCULAR: Regular rate and rhythm. RESPIRATORY: No accessory muscle use. Clear to auscultation. Breath sounds equal bilaterally. GASTROINTESTINAL: Abdomen soft, non-tender, nondistended. MUSCULOSKELETAL: No obvious deformities. No clubbing. No cyanosis. NEUROLOGICAL: Drowsy but opens eyes to voice, moves all extremities, slurred speech Data Data Last Documented VS Vital Signs Date Time Temp Pulse Resp B/P (MAP) Pulse Ox O2 Delivery O2 Flow Rate FiO2 08/12/17 11:09 91 18 112/78 (89) 100 Room Air 08/12/17 09:06 97.8 Orders Orders Lamictal (Lamotrigine) (08/12/17 08:56) Complete Blood Count With Diff (08/12/17 08:56) Alcohol (Ethanol) (08/12/17 08:56) Drug Screen, Random Urine (08/12/17 08:56) Blood Culture (08/12/17 08:56) Electrocardiogram (08/12/17 ) Ct Brain W/O Iv Contrast(Rout) (08/12/17 ) Blood Glucose (08/12/17 08:56) Ecg Monitoring (08/12/17 08:56) Iv Access Insert/Monitor (08/12/17 08:56) Oximetry (08/12/17 08:56) Comprehensive Metabolic Panel (08/12/17 08:56) Sodium Chloride 0.9% Flush (Ns Flush) (08/12/17 09:00) Phenytoin (Dilantin) (08/12/17 08:59) Ondansetron Inj (Zofran Inj) (08/12/17 11:30) Fosphenytoin Inj (Cerebyx Inj) (08/12/17 12:00) Labs Laboratory Tests Test 08/12/17 09:00 White Blood Count 8.1 TH/MM3 Red Blood Count 4.89 MIL/MM3 Hemoglobin 12.2 GM/DL Hematocrit 37.0 % Mean Corpuscular Volume 75.7 FL Mean Corpuscular Hemoglobin 25.0 PG Mean Corpuscular Hemoglobin Concent 33.0 % Red Cell Distribution Width 16.8 % Platelet Count 344 TH/MM3 Mean Platelet Volume 7.2 FL Neutrophils (%) (Auto) 85.5 % Lymphocytes (%) (Auto) 11.1 % Monocytes (%) (Auto) 3.1 % Eosinophils (%) (Auto) 0.1 % Basophils (%) (Auto) 0.2 % Neutrophils # (Auto) 6.9 TH/MM3 Lymphocytes # (Auto) 0.9 TH/MM3 Monocytes # (Auto) 0.3 TH/MM3 Eosinophils # (Auto) 0.0 TH/MM3 Basophils # (Auto) 0.0 TH/MM3 CBC Comment DIFF FINAL Differential Comment Blood Urea Nitrogen 15 MG/DL Creatinine 1.07 MG/DL Random Glucose 142 MG/DL Total Protein 8.0 GM/DL Albumin 3.9 GM/DL Calcium Level 8.9 MG/DL Alkaline Phosphatase 66 U/L Aspartate Amino Transf (AST/SGOT) 27 U/L Alanine Aminotransferase (ALT/SGPT) 27 U/L Total Bilirubin 0.2 MG/DL Sodium Level 140 MEQ/L Potassium Level 4.0 MEQ/L Chloride Level 105 MEQ/L Carbon Dioxide Level 24.8 MEQ/L Anion Gap 10 MEQ/L Estimat Glomerular Filtration Rate 61 ML/MIN Urine Opiates Screen NEG Urine Barbiturates Screen POS Phenytoin (Dilantin) Level 0.6 MCG/ML Urine Amphetamines Screen POS Urine Benzodiazepines Screen POS Urine Cocaine Screen POS Urine Cannabinoids Screen NEG Ethyl Alcohol Level LESS THAN 3 MG/DL MDM Medical Decision Making Medical Screen Exam Complete: Yes Emergency Medical Condition: Yes Medical Record Reviewed: Yes (pmh confirmed) Interpretation(s) CBC & BMP Diagram 08/12/17 09:00 Total Protein 8.0, Albumin 3.9, Calcium Level 8.9, Alkaline Phosphatase 66, Aspartate Amino Transf (AST/SGOT) 27, Alanine Aminotransferase (ALT/SGPT) 27, Total Bilirubin 0.2 Last [address] 08/12/17 0000 Signed Impressions: Service Date/Time: August 09:51 - CONCLUSION: 1. Negative noncontrast CT brain. Jhon Pak MD Differential Diagnosis Seizure, electrolyte abnormality, intercranial Narrative Course We will check blood work, CT brain and monitor Urine drug screen shows polysubstance abuse. Dilantin level is subtherapeutic. Will load with 1 g of Cerebyx and placed back on Dilantin as discussed with neurology. No seizure here. Patient denies any new complaints, all questions answered. Patient knows that follow up is incumbent on them and to return to the emergency room immediately if new or worsening symptoms develop. Patient given strict return precautions, vitals reviewed and are normal, agrees to further workup as an outpatient. mother at bedside Physician Communication Physician Communication dr rowe states to load with cerebyx and send home with refill of dilantin Diagnosis Primary Impression: Seizures Additional Impression: Polysubstance abuse Patient Instructions: General Instructions Additional Instructions: return as needed, follow with primary this week, avoid drug use, Take your seizure medication Med/Other Pt SpecificInfo: Prescription(s) given Scripts Phenytoin Extended (Dilantin) 100 Mg Cap 100 MG PO TID for Control Seizures for 14 Days, CAP 0 Refills Prov: Marlene Walls MD 08/12/17 Disposition: 01 DISCHARGE HOME Condition: Stable Marlene Walls MD Aug 12, 2017 09:09
[2017-08-12 09:34] LABS: AUTOMATED NEUTROPHIL # 6.9 TH/MM3 (1.8-7.7); BASOPHIL % 0.2 % (0.0-2.0); EOSINOPHIL % 0.1 % (0.0-4.0); HEMOGLOBIN 12.2 GM/DL (11.6-15.3); LYMPH % 11.1 % (9.0-44.0); LYMPHOCYTE # 0.9 TH/MM3 (1.0-4.8); MEAN CELL VOLUME 75.7 FL (80.0-100.0); MEAN PLATELET VOLUME 7.2 FL (7.0-11.0); MONO % 3.1 % (0.0-8.0); MONOCYTE # 0.3 TH/MM3 (0-0.9); NEUT % 85.5 % (16.0-70.0); PLATELET COUNT 344 TH/MM3 (150-450); RED BLOOD COUNT 4.89 MIL/MM3 (4.00-5.30); RED CELL DISTRIBUTION WIDTH 16.8 % (11.6-17.2); WHITE BLOOD COUNT 8.1 TH/MM3 (4.0-11.0)
[2017-08-12 09:58] LABS: ALT (GPT) 27 U/L (10-53)
[2017-08-12 10:00] LABS: ALKALINE PHOSPHATASE 66 U/L (45-117); TOTAL BILIRUBIN ADULT 0.2 MG/DL (0.2-1.0)
[2017-08-12 10:01] LABS: ALBUMIN 3.9 GM/DL (3.4-5.0); AST (GOT) 27 U/L (15-37); BICARBONATE 24.8 MEQ/L (21.0-32.0); BLOOD UREA NITROGEN 15 MG/DL (7-18); CALCIUM 8.9 MG/DL (8.5-10.1); CHLORIDE 105 MEQ/L (98-107); CREATININE 1.07 MG/DL (0.50-1.00); GLOMERULAR FILTRATION RATE 61 ML/MIN (>89); GLUCOSE,RANDOM 142 MG/DL (74-106); SODIUM (NA) 140 MEQ/L (136-145)
--- NOTE | 2017-08-12 10:16 | RADRPT ---
EXAM DATE/TIME: 08/12/2017 09:51 [facility] COMPARISON: CT BRAIN W/O CONTRAST, April 16, 2017, 18:05. INDICATIONS : Altered mental status. Lethargy. RADIATION DOSE: 56.35 CTDIvol (mGy) MEDICAL HISTORY : Seizures. SURGICAL HISTORY : None. ENCOUNTER: Initial ACUITY: 1 day PAIN SCALE: 0/10 LOCATION: cranial TECHNIQUE: Multiple contiguous axial images were obtained of the head. Using automated exposure control and adj ustment of the mA and/or kV according to patient size, radiation dose was kept as low as reasonably a chievable to obtain optimal diagnostic quality images. DICOM format image data is available electro nically for review and comparison. FINDINGS: CEREBRUM: The ventricles are normal for age. No evidence of midline shift, mass lesion, hemorrhage or acute in farction. No extra-axial fluid collections are seen. POSTERIOR FOSSA: The cerebellum and brainstem are intact. The 4th ventricle is midline. The cerebellopontine angle i s unremarkable. EXTRACRANIAL: The visualized portion of the orbits is intact. SKULL: The calvaria is intact. No evidence of skull fracture. CONCLUSION: 1. Negative noncontrast CT brain. Jhon Pak MD on August 12, 2017 at 10:08 Board Certified Radiologist. This report was verified electronically.
[2017-08-12 11:09] VITALS: BP 112/78; PULSE 91; RESP 18; O2SAT 100
[2017-08-12] MEDS ORDERED: ONDANSETRON HCL 4 MG/2 ML VIAL IV PUSH ONE (11:30)
[2017-08-12] MEDS ORDERED: DILA100C PO (11:33)
[2017-08-12] MEDS ORDERED: FOSPHENYTOIN INJ 1,000 MGPE in SODIUM CHLORIDE 0.9% INJ 50 ML IV ONE (12:00)
--- NOTE | 2017-08-13 10:02 | EKG ---
Date Performed: 08/12/2017 Time Performed: 09:13:05 PTAGE: 27 years EKG: Sinus rhythm POSSIBLE RIGHT VENTRICULAR CONDUCTION DELAY BORDERLINE ECG PREVIOUS TRACING : 04/22/2017 11.33 Probable left ventricular hypertrophy. Since the prior trac ing, patient has developed anterior T-wave changes that may be secondary to increasing left ventricul ar hypertrophy, but clinical correlation would be important. EKGs are otherwise without significant s erial change. DOCTOR: Carolyn Beverly Interpretating Date/Time 08/13/2017 10:02:04
== END 2017-08-12 12:27 | disposition home or self-care (01) ==
LOC: NEPE 08:53
DX: R56.9 Unspecified convulsions (principal); R94.31 Abnormal electrocardiogram [ECG] [EKG]; F19.10 Other psychoactive substance abuse, uncomplicated; J45.909 Unspecified asthma, uncomplicated; Z72.0 Tobacco use
CPT/HCPCS: 70450; 80053; 80175; 80185; 80307; 85025; 87040; 93005; 96374; 96375; 99285; J2405; Q2009

== ENCOUNTER 2017-09-20 06:25 | Emergency (ER) | payer OTHER ==
[~2017-09-20] VITALS: Ht 154.9 cm; Wt 45.5 kg
[2017-09-20 06:33] VITALS: BP 130/87; PULSE 96; RESP 16; O2SAT 100
[2017-09-20] MEDS ORDERED: GABA800T PO (06:39)
[2017-09-20] MEDS ORDERED: PHENYTOIN SODIUM 100 MG CAP PO ONE ×2 (07:15→08:45)
--- NOTE | 2017-09-20 07:29 | PD ---
HPI Chief Complaint: Respiratory Symptoms Time Seen by Provider: 07:00 Travel History International Travel<30 days: No Contact w/Intl Traveler<30days: No Traveled to known affect area: No History of Present Illness HPI This is a 27-year-old female who has a history of seizure disorder and IV drug use apartment having been awake in the middle the night because she felt short of breath, constant, moderate severity, described as feeling like she has to take a deep breath. This morning she had a seizure at her father's house. She is not sure how long it lasted. She has not been taking her seizure medicines. She says she supposed to be on phenytoin and gabapentin. She denies any fevers or chills and denies any chest pain. [facility] Past Medical History Asthma: Yes (uses inhalers as needed) Diabetes: No Implanted Vascular Access Dvce: No Neurologic: Yes (SEIZURES PER PATIENT) Respiratory: Yes Seizures: Yes (Recently diagnosed) ?: Not Past Surgical History Body Medical Devices: UNABLE TO ASSESS Other Surgery: No Social History Alcohol Use: No (UNKNOWN) Tobacco Use: Yes (1/2 PPD) Substance Use: Yes (HEROIN, METH) Allergies-Medications (Allergen,Severity, Reaction): Coded Allergies: No Known Allergies (Unverified Adverse Reaction, Unknown, 09/20/17) Reported Meds & Prescriptions Reported Meds & Active Scripts Active Lamictal (Lamotrigine) 25 Mg Tab 25 Mg PO Q12HR Dilantin (Phenytoin Extended) 100 Mg Cap 100 Mg PO Q8HR Reported Gabapentin 800 Mg Tab 800 Mg PO TID Suboxone Sublingual Film (Buprenorphine-Naloxone Sublingual Film) 2-0.5 Mg Film 1 Film SL Unique ID number required: Review of Systems Except as stated in HPI: all other systems reviewed are Neg Physical Exam Narrative GENERAL: Thin female SKIN: Track sosa in the bilateral upper extremities. HEAD: Atraumatic. Normocephalic. EYES: Pupils equal and round. No injection or drainage. ENT: Moist mucous membranes NECK: Trachea midline. CARDIOVASCULAR: Regular rate and rhythm. No murmur appreciated. RESPIRATORY: Clear to auscultation. Breath sounds equal bilaterally. GASTROINTESTINAL: Abdomen soft, non-tender, nondistended. MUSCULOSKELETAL: No obvious deformities. NEUROLOGICAL: Awake and alert. No obvious cranial nerve deficits. Moving all extremities. PSYCHIATRIC: Appropriate mood and affect; insight and judgment normal. Data Data Last Documented VS Vital Signs Date Time Temp Pulse Resp B/P (MAP) Pulse Ox O2 Delivery O2 Flow Rate FiO2 09/20/17 07:35 98.4 88 13 98 Room Air 09/20/17 06:33 130/87 (101) Orders Orders Complete Blood Count With Diff (09/20/17 07:06) Comprehensive Metabolic Panel (09/20/17 07:06) Chest, Single Ap (09/20/17 ) Phenytoin (Dilantin) (09/20/17 07:15) Phenytoin (Dilantin) (09/20/17 08:45) Labs Laboratory Tests Test 09/20/17 07:23 White Blood Count 10.4 TH/MM3 Red Blood Count 5.00 MIL/MM3 Hemoglobin 12.8 GM/DL Hematocrit 38.5 % Mean Corpuscular Volume 77.0 FL Mean Corpuscular Hemoglobin 25.6 PG Mean Corpuscular Hemoglobin Concent 33.2 % Red Cell Distribution Width 15.8 % Platelet Count 301 TH/MM3 Mean Platelet Volume 6.8 FL Neutrophils (%) (Auto) 80.9 % Lymphocytes (%) (Auto) 11.0 % Monocytes (%) (Auto) 5.0 % Eosinophils (%) (Auto) 2.7 % Basophils (%) (Auto) 0.4 % Neutrophils # (Auto) 8.4 TH/MM3 Lymphocytes # (Auto) 1.1 TH/MM3 Monocytes # (Auto) 0.5 TH/MM3 Eosinophils # (Auto) 0.3 TH/MM3 Basophils # (Auto) 0.0 TH/MM3 CBC Comment DIFF FINAL Differential Comment Blood Urea Nitrogen 9 MG/DL Creatinine 0.55 MG/DL Random Glucose 94 MG/DL Total Protein 6.7 GM/DL Albumin 3.2 GM/DL Calcium Level 8.1 MG/DL Alkaline Phosphatase 72 U/L Aspartate Amino Transf (AST/SGOT) 13 U/L Alanine Aminotransferase (ALT/SGPT) 19 U/L Total Bilirubin 0.1 MG/DL Sodium Level 137 MEQ/L Potassium Level 4.1 MEQ/L Chloride Level 103 MEQ/L Carbon Dioxide Level 25.3 MEQ/L Anion Gap 9 MEQ/L Estimat Glomerular Filtration Rate 131 ML/MIN [facility] Medical Decision Making Medical Screen Exam Complete: Yes Emergency Medical Condition: Yes Interpretation(s) Afebrile, no tachycardia No leukocytosis Electrolytes are reassuring Last 24 hours Impressions Chest X-Ray 09/20/17 0000 Signed Impressions: Service Date/Time: Wednesday, September 20, 2017 07:19 - CONCLUSION: No acute disease. Nir Tapia MD Differential Diagnosis Seizure, medication noncompliance, endocarditis, pulmonary embolism, Narrative Course This is a 27-year-old female who presents to the emergency department having had a seizure and reporting some shortness of breath last night. She has reassuring vital signs with a normal oxygen saturation. Labs are reassuring. I doubt she has endocarditis. Chest x-ray is unremarkable with no evidence of septic emboli or pneumonia. Patient acknowledges that she has not been taking her Dilantin. She was orally loaded with Dilantin and will be discharged home. Diagnosis Primary Impression: Seizures Patient Instructions: General Instructions Additional Instructions: If you develop severe chest pain, shortness of breath, sweating, lightheadedness , dizziness or difficulty breathing return to the emergency department immediately. Followup with your primary care physician in 2-3 days if your symptoms are not resolved. Med/Other Pt SpecificInfo: Prescription(s) given Scripts Phenytoin Extended (Phenytoin Extended) 300 Mg Cap 300 MG PO TID for Control Seizures, #90 CAP 0 Refills Prov: Natalia Post MD 09/20/17 Disposition: 01 DISCHARGE HOME Condition: Stable Natalia Post MD September 20, 2017 07:29
[2017-09-20 07:35] VITALS: PULSE 88; RESP 13; TEMP 98.4; O2SAT 98
[2017-09-20 07:35] LABS: AUTOMATED NEUTROPHIL # 8.4 TH/MM3 (1.8-7.7); BASOPHIL % 0.4 % (0.0-2.0); EOSINOPHIL # 0.3 TH/MM3 (0-0.4); EOSINOPHIL % 2.7 % (0.0-4.0); HEMATOCRIT 38.5 % (35.0-46.0); HEMOGLOBIN 12.8 GM/DL (11.6-15.3); LYMPHOCYTE # 1.1 TH/MM3 (1.0-4.8); MEAN CORPUSCULAR HEMOGLOBIN 25.6 PG (27.0-34.0); MEAN CORPUSCULAR HGB CONC 33.2 % (32.0-36.0); MEAN PLATELET VOLUME 6.8 FL (7.0-11.0); MONOCYTE # 0.5 TH/MM3 (0-0.9); NEUT % 80.9 % (16.0-70.0); PLATELET COUNT 301 TH/MM3 (150-450); RED CELL DISTRIBUTION WIDTH 15.8 % (11.6-17.2); WHITE BLOOD COUNT 10.4 TH/MM3 (4.0-11.0)
--- NOTE | 2017-09-20 07:49 | RADRPT ---
EXAM DATE/TIME: 09/20/2017 07:19 [facility] COMPARISON: CHEST SINGLE AP, August 06, 2016, 3:42. INDICATIONS : Shortness of breath. MEDICAL HISTORY : Seizures SURGICAL HISTORY : None. ENCOUNTER: Initial ACUITY: 1 day PAIN SCORE: 0/10 LOCATION: Bilateral chest FINDINGS: A single view of the chest demonstrates the lungs to be symmetrically aerated without evidence of mas s, infiltrate or effusion. The previously noted bibasilar infiltrates have resolved. The cardiomedia stinal contours are unremarkable. Osseous structures are intact. CONCLUSION: No acute disease. Nir Tapia MD on September 20, 2017 at 7:45 Board Certified Radiologist. This report was verified electronically.
[2017-09-20 07:50] LABS: ALBUMIN 3.2 GM/DL (3.4-5.0); ALT (GPT) 19 U/L (10-53); AST (GOT) 13 U/L (15-37); BICARBONATE 25.3 MEQ/L (21.0-32.0); BLOOD UREA NITROGEN 9 MG/DL (7-18); CALCIUM 8.1 MG/DL (8.5-10.1); CHLORIDE 103 MEQ/L (98-107); CREATININE 0.55 MG/DL (0.50-1.00); GLOMERULAR FILTRATION RATE 131 ML/MIN (>89); GLUCOSE,RANDOM 94 MG/DL (74-106); SODIUM (NA) 137 MEQ/L (136-145)
[2017-09-20 07:53] LABS: ALKALINE PHOSPHATASE 72 U/L (45-117); TOTAL BILIRUBIN ADULT 0.1 MG/DL (0.2-1.0); TOTAL PROTEIN 6.7 GM/DL (6.4-8.2)
[2017-09-20] MEDS ORDERED: PHEN300C3 PO (08:55)
[2017-09-20 09:06] VITALS: BP 107/72
== END 2017-09-20 09:08 | disposition home or self-care (01) ==
LOC: NEPC 06:25
DX: G40.909 Epilepsy, unspecified, not intractable, without status epilepticus (principal); F17.200 Nicotine dependence, unspecified, uncomplicated; F19.10 Other psychoactive substance abuse, uncomplicated
CPT/HCPCS: 71045; 80053; 85025; 99284